=== PATIENT | female | born 2000 | race Hispanic/Latino ===

== ENCOUNTER 2018-05-19 17:41 | Emergency (ER) | payer OTHER, MEDICAID, SELFPAY ==
[2018-05-19 17:48] VITALS: BP 100/59; PULSE 62; RESP 20; TEMP 37; O2SAT 100; BMI 21.6
--- NOTE | 2018-05-19 20:24 | ED_ITS ---
HPI - Ear Problem <TALISHA Wood - Last Filed: 05/19/18 22:38> General Chief complaint: Ear Stated complaint: BILATERAL EAR PAIN Time Seen by Provider: 05/19/18 19:42 Source: patient Mode of arrival: ambulatory Limitations: no limitations History of Present Illness HPI Narrative: Healthy 17-year-old female that is a nonsmoker here for complaint of bilateral ear pain over the past couple of days. She denies any fevers or chills. She denies any nasal congestion. No cough no cold-like symptoms. She denies any trauma to the ears. No drainage from the ears. She denies any other concerns or complaints at this time. Positive p.o. intake. She denies any stressors or relievers of her pain MD Complaint: ear pain Related Data Allergies Allergy/AdvReac Type Severity Reaction Status Date / Time No Known Drug Allergies Allergy Verified 05/19/18 17:51 Review of Systems <TALISHA Wood - Last Filed: 05/19/18 22:38> Constitutional Denies chills, Denies fever(s), Denies lethargy and Denies weakness Eyes Denies change in vision, Denies eye discharge, Denies irritation and Denies loss of vision ENT Ears, Nose, Mouth, and Throat: Denies change in voice, Reports otalgia, Denies neck pain and Denies sore throat Cardiovascular Denies chest pain, Denies irregular heart rhythm, Denies lightheadedness, Denies palpitations, Denies dyspnea, Denies dyspnea on exertion and Denies orthopnea Respiratory Denies cough, Denies dyspnea, Denies dyspnea on exertion and Denies wheezing Gastrointestinal Gastrointestinal: Denies abdominal pain, Denies change in bowel habits, Denies diarrhea, Denies nausea and Denies vomiting Genitourinary Denies hematuria, Denies flank pain, Denies urinary incontinence and Denies urinary urgency Musculoskeletal Denies neck pain Integumentary/Breasts Denies pruritus, Denies erythema, Denies rash and Denies wounds Neurologic Denies confusion, Denies loss of vision and Denies weakness Psychiatric Denies anxiety, Denies confusion, Denies depression, Denies homicidal ideation and Denies suicidal ideation Endocrine Denies palpitations Hematologic/Lymphatic Denies easy bruising Allergic/Immunologic Denies wheezing Exam <TALISHA Wood - Last Filed: 05/19/18 22:38> Initial Vital Signs Initial Vital Signs: Vital Signs Temperature 98.6 F 05/19/18 17:48 Pulse Rate 62 05/19/18 17:48 Respiratory Rate 20 05/19/18 17:48 Blood Pressure 100/59 L 05/19/18 17:48 Pulse Oximetry 100 05/19/18 17:48 Const General: cooperative and well developed Nutritional Appearance: well nourished Orientation: alert, awake, oriented x3 and not confused HENMA Ears: hearing grossly normal bilaterally, external ears normal and TM's normal bilaterally Eyes Conjunctivae: conjunctivae normal Sclera: sclerae normal Pupils: PERRL EOM: EOM intact bilaterally Chest Chest: normal inspection of the chest Resp Effort & Inspection: normal respiratory effort, able to speak in complete sentences, no respiratory distress and no use of accessory muscles Auscultation: clear to auscultation bilaterally, no rales, no rhonchi and no wheezes Cardio Rate: regular rate Rhythm: regular rhythm Heart Sounds: no click, no gallops, no murmurs and no rubs Skin General: no rashes or lesions noted, No jaundice and No petechiae Neuro General: alert, oriented x3, gait normal and no focal motor deficits Speech: speech normal <DO Bradley See Last Filed: 05/20/18 00:31> Initial Vital Signs Initial Vital Signs: Vital Signs Temperature 98.6 F 05/19/18 17:48 Pulse Rate 62 05/19/18 17:48 Respiratory Rate 20 05/19/18 17:48 Blood Pressure 100/59 L 05/19/18 17:48 Pulse Oximetry 100 05/19/18 17:48 Course <TALISHA Wood - Last Filed: 05/19/18 22:38> Vital Signs - 8 hr 05/19/18 17:48 Temperature 98.6 F Pulse Rate 62 Respiratory Rate 20 Blood Pressure 100/59 L Pulse Oximetry 100 <Osvaldo Pizarro DO - Last Filed: 05/20/18 00:31> Vital Signs - 8 hr 05/19/18 17:48 Temperature 98.6 F Pulse Rate 62 Respiratory Rate 20 Blood Pressure 100/59 L Pulse Oximetry 100 Medical Decision Making <TALISHA Wood - Last Filed: 05/19/18 22:38> MDM Narrative Medical decision making narrative: Normal exam with no signs of otitis media or otitis externa bilateral. Symptoms may be secondary to a fluid in the inner ear although patient denies having any nasal congestion. [id number] Tylenol Motrin as needed for any discomfort. Follow up with primary care provider. Return emergency room for any worsening symptoms. Discharge Plan Departure Patient Disposition: Home Clinical Impression: Acute pain of both ears Discharge Date/Time: 05/19/18 20:27 Interventions: ED Discharge Assessment Last Done: 05/19/18 20:30 Instructions: DI for Ear Pain-Adult Activity Restrictions/Additional Instructions: No signs of infection to the ears seen on exam. Suspect that pain and discomfort may be due to fluid in the ear drum use [id number] Tylenol or Motrin as needed for any discomfort. Symptoms should resolve with time. For any worsening symptoms return to the emergency room. Follow up with her primary care provider. Referrals: [facility] [Provider Group] <Osvaldo Pizarro DO - Last Filed: 05/20/18 00:31> Cosign ED Attending Brit Attestation: I was available for consultation during this patient's emergency department encounter
--- NOTE | 2018-05-19 20:26 | PC.NURSE ---
further exam deferred to RESEARCH DIETITIAN
== END 2018-05-19 20:27 | disposition home or self-care (01) ==
PROVIDERS: Emergency Provider Nurse Practitioner Family
DX: H92.03 Otalgia, bilateral (principal)
CPT/HCPCS: 99282

== ENCOUNTER 2018-05-30 00:33 | Emergency (ER) | payer OTHER, MEDICAID, SELFPAY ==
--- NOTE | 2018-05-30 00:54 | ED_ITS ---
HPI - General Adult General Chief complaint: Urogenital-Female Stated complaint: left side pain/frequent/painful urination Time Seen by Provider: 05/30/18 00:53 Source: patient Mode of arrival: ambulatory Limitations: no limitations History of Present Illness HPI narrative: Otherwise healthy 17-year-old female here for evaluation of left- sided abdominal burning. She states has been going on for the past 3 weeks. She states that it seems to be associated with urination. She states she has urinary frequency. She states that she has to urinate often because if she does not it will hurt her abdomen when she goes the bathroom. Denies any vaginal bleeding. No history of sexually transmitted diseases. No change in bowel habits. No constipation. No diarrhea. No blood in her stool. No fevers. No recent travel. No recent antibiotics. Never been before. Never had a kidney stone before. No skin changes. Has not tried anything for this prior to arrival. Related Data Previous Rx's Medication Instructions Recorded ciprofloxacin HCl 500 mg PO BID 7 Days #14 tab 05/30/18 Allergies Allergy/AdvReac Type Severity Reaction Status Date / Time No Known Drug Allergies Allergy Verified 05/19/18 17:51 Review of Systems Constitutional Denies fever(s) ENT Ears, Nose, Mouth, and Throat: Denies vertigo Cardiovascular Denies chest pain and Denies dyspnea Respiratory Denies dyspnea Gastrointestinal Gastrointestinal: Reports abdominal pain, Denies change in stool character, Denies cramping, Denies diarrhea, Denies nausea and Denies vomiting Genitourinary Denies urinary incontinence, Denies urinary hesitancy, Reports urinary urgency and Denies vaginal discharge Musculoskeletal Denies myalgias and Denies arthralgias Integumentary/Breasts Denies rash Neurologic Denies vertigo FOR[facility], [facility] Medical History Healthy adult (Acute) Surgical History No pertinent past surgical history (Acute) Social History Smoking Status: Never smoker Exam Initial Vital Signs Initial Vital Signs: Vital Signs Temperature 98.2 F 05/30/18 01:26 Pulse Rate 72 05/30/18 01:26 Respiratory Rate 16 05/30/18 01:26 Blood Pressure 110/75 05/30/18 01:26 Pulse Oximetry 100 05/30/18 01:26 Const General: cooperative, healthy appearing, comfortable, well developed, well groomed and No acute distress Orientation: alert and awake HENMT Head: normal to inspection and normocephalic Resp Effort & Inspection: normal respiratory effort Cardio Rate: regular rate Rhythm: regular rhythm GI Inspection: non-distended Palpation: soft, No firm and tender (Left side of the abdomen) Back/Spine/Pelvis Back: No CVA tenderness Skin Lesions: no lesions Rashes: no rashes Neuro General: alert, awake and oriented x3 Extrem General: normal to inspection and capillary refill normal Psych Appearance: grossly normal and well kempt Course Orders Ordered: ED Orders 05/30/18 01:10 Test Urine Stat Urinalysis and Microscopic Stat Urine Culture Stat 05/30/18 01:46 CT abdomen pelvis w con Stat 05/30/18 02:10 Urine Chlamydia Gonorrhea PCR Stat 05/30/18 02:54 Complete Blood Count AUTO DIFF Stat Comprehensive Metabolic Panel Stat Lipase Stat Discontinued Medications Sodium Chloride (Normal Saline 0.9%) 1,000 mls @ 1,000 mls/hr IV BOLUS ONE Stop: 05/30/18 02:43 Last Infusion: 05/30/18 03:55 Dose: 0 mls/hr Admin: 05/30/18 02:49 Dose: 1,000 mls/hr Vital Signs - 8 hr 05/30/18 01:26 05/30/18 02:55 05/30/18 03:40 Temperature 98.2 F Pulse Rate 72 74 76 Respiratory Rate 16 18 Blood Pressure 110/75 Blood Pressure [Right Arm] 102/66 109/67 Pulse Oximetry 100 99 Medical Decision Making Lab Data Lab results reviewed: Yes I reviewed the patient's lab results. Result diagrams: 05/30/18 02:54 05/30/18 02:54 Lab Results 05/30/18 05/30/18 05/30/18 Range/Units 01:10 01:10 02:10 WBC (4.5-11.0) X10^3/uL RBC (4.0-5.2) X10^6/uL Hgb (12.0-16.0) g/dL Hct (36-46) % MCV (80-100) fL MCH (26-34) PG MCHC (30-36) % RDW (11.6-14.8) % Plt Count (150-400) X10^3/uL Neut % (Auto) (50-75) % Lymph % (Auto) (25-40) % Jay % (Auto) (3-14) % Eos % (Auto) (2-4) % Baso % (Auto) (0-2) % Neut # (Auto) (0443-6509) /uL Sodium (137-145) mmol/L Potassium (3.4-5.1) mmol/L Chloride (98-107) mmol/L Carbon Dioxide (22-32) mmol/L BUN (7-17) mg/dL Creatinine (0.52-1.04) mg/dL Estimated GFR (>60) mL/min BUN/Creatinine Ratio (6-22) Glucose (70-100) mg/dL Calcium (8.4-10.2) mg/dL Total Bilirubin (0.2-1.3) mg/dL AST (14-36) IU/L ALT (9-52) IU/L Alkaline Phosphatase (38-126) U/L Total Protein (6.3-8.2) g/dL Albumin (3.5-5.0) g/dL Globulin (1.7-4.1) g/dL Albumin/Globulin Ratio (1.0-2.8) Lipase (23-300) U/L Urine Color Yellow Urine Appearance Clear Urine pH 6.0 (4.5-8.0) Ur Specific [place] 1.025 (1.000-1.035) Urine Protein Negative (Negative) Urine Glucose (UA) 1+ (Normal) g/dL Urine Ketones Trace H (NEGATIVE) Urine Occult Blood Negative (Negative) Urine Nitrate Negative (Negative) Urine Bilirubin Negative (NEGATIVE) Urine Urobilinogen 0.2 (0.2) E.U./dL Ur Leukocyte Esterase Negative (NEGATIVE) Urine RBC None seen (0-5/HPF) Urine WBC None seen (0-5/HPF) Ur Squamous Epith Cells 1-5 /hpf Urine Bacteria Moderate (10-30) H (None) Ur Culture Indicated? Cult not indicated Micro UA Comment Not Reportable Urine Test Negative (Negative) Ur Chlamydia DNA (PCR) Not detected N gonorrhoeae DNA (PCR) Not detected 05/30/18 05/30/18 Range/Units 02:54 02:54 WBC 7.9 (4.5-11.0) X10^3/uL RBC 5.04 (4.0-5.2) X10^6/uL Hgb 14.2 (12.0-16.0) g/dL Hct 41.4 (36-46) % MCV 82.2 (80-100) fL MCH 28.2 (26-34) PG MCHC 34.4 (30-36) % RDW 12.9 (11.6-14.8) % Plt Count 309 (150-400) X10^3/uL Neut % (Auto) 59.6 (50-75) % Lymph % (Auto) 30.8 (25-40) % Jay % (Auto) 8.2 (3-14) % Eos % (Auto) 0.9 L (2-4) % Baso % (Auto) 0.5 (0-2) % Neut # (Auto) 4700 (8269-1238) /uL Sodium 140 (137-145) mmol/L Potassium 3.6 (3.4-5.1) mmol/L Chloride 101 (98-107) mmol/L Carbon Dioxide 28 (22-32) mmol/L BUN 19 H (7-17) mg/dL Creatinine 0.60 (0.52-1.04) mg/dL Estimated GFR > 60.0 (>60) mL/min BUN/Creatinine Ratio 31.7 H (6-22) Glucose 109 H (70-100) mg/dL Calcium 9.0 (8.4-10.2) mg/dL Total Bilirubin 0.3 (0.2-1.3) mg/dL AST 36 (14-36) IU/L ALT 38 (9-52) IU/L Alkaline Phosphatase 108 (38-126) U/L Total Protein 7.3 (6.3-8.2) g/dL Albumin 4.4 (3.5-5.0) g/dL Globulin 2.9 (1.7-4.1) g/dL Albumin/Globulin Ratio 1.5 (1.0-2.8) Lipase 96 (23-300) U/L Urine Color Urine Appearance Urine pH (4.5-8.0) Ur Specific [place] (1.000-1.035) Urine Protein (Negative) Urine Glucose (UA) (Normal) g/dL Urine Ketones (NEGATIVE) Urine Occult Blood (Negative) Urine Nitrate (Negative) Urine Bilirubin (NEGATIVE) Urine Urobilinogen (0.2) E.U./dL Ur Leukocyte Esterase (NEGATIVE) Urine RBC (0-5/HPF) Urine WBC (0-5/HPF) Ur Squamous Epith Cells Urine Bacteria (None) Ur Culture Indicated? Micro UA Comment Urine Test (Negative) Ur Chlamydia DNA (PCR) N gonorrhoeae DNA (PCR) Imaging Data CT scan - abdomen: Radiologist's impression: There short segment thickening of the cage of the right left colon this may represent underdistention versus colitis. MDM Narrative Medical decision making narrative: Patient's urinalysis is unremarkable. No signs of infection. GC and chlamydia are negative. She has no vaginal bleeding. Her abdominal pain is left side of her abdomen not left adnexal so fill the PID is less likely in this situation. CT scan shows no signs of kidney stones however does have thickening of the colon. Colitis could very well be the cause of her symptoms. She has no recent travel no recent antibiotics. I feel that course of antibiotics is not unreasonable given her length of time that she has been having symptoms. Patient was instructed she needed to contact her primary care doctor for a follow-up. She expressed understanding and agreement plan. Discharge Plan Departure Patient Disposition: Home Clinical Impression: Abdominal pain, Colitis Instructions: DI for Colitis Activity Restrictions/Additional Instructions: I do recommend that you may contact with the primary care doctor to establish follow-up. Take the antibiotics as directed. Return to the emergency department for any new or worsening symptoms Prescriptions: New ciprofloxacin HCl 500 mg tablet 500 mg PO BID 7 Days Qty: 14 RF: 0 Stand Alone Forms: Against Medical Advice
[2018-05-30 01:16] LABS: RBC Urine None Seen (0-5/HPF); WBC Urine None Seen (0-5/HPF)
[2018-05-30 01:19] LABS: Appearance Urine UA CLEAR; Bilirubin Urine UA NEGATIVE (NEGATIVE); Color Urine UA YELLOW; Glucose Urine UA 1+ g/dL (Normal); Ketones Urine UA TRACE (NEGATIVE); Leukocyte Esterase Urine UA NEGATIVE (NEGATIVE); Nitrite Urine UA NEGATIVE (Negative); Occult Blood Urine UA NEGATIVE (Negative); Protein Urine UA NEGATIVE (Negative); Specific Gravity Urine UA 1.025 (1.000-1.035); Urobilinogen Urine UA 0.2 E.U./dL (0.2)
[2018-05-30 01:26] VITALS: BP 110/75; PULSE 72; RESP 16; TEMP 36.8; O2SAT 100; BMI 21.6
[2018-05-30 01:36] LABS: Pregnancy Test Urine Negative (Negative)
[2018-05-30 01:40] LABS: Bacteria Urine Moderate (10-30); Culture Indicated Urine Cult Not Indicated; Squamous Epithelial Cell Urine 1-5 /HPF
--- NOTE | 2018-05-30 01:46 | DI.CT.S_ITS ---
PROCEDURE: CT ABDOMEN PELVIS W CON INDICATIONS: Left-sided abdominal pain TECHNIQUE: After the administration of oral and intravenous contrast, 5 mm thick sections acquired from the diaphragms to the symphysis. 5 mm thick coronal and sagittal reformats were performed. For radiation dose reduction, the following was used: automated exposure control, adjustment of mA and/or kV according to patient size. COMPARISON: None. FINDINGS: Image quality: Excellent. ABDOMEN: Lung bases: Lung bases are clear. Heart size is normal. Solid organs: No focal hepatic lesions identified. Gallbladder appears within normal limits without calcified gallstones. Biliary system is non-dilated. Pancreas enhances normally. Spleen is normal in size and enhancement. No adrenal nodules. Kidneys are normal in size and enhancement, without hydronephrosis. Peritoneum and bowel: Stomach and small bowel loops are normal in caliber and wall thickness. No evidence of appendicitis. There is short segment of mild wall thickening at the cecum, proximal transverse colon, and distal descending colon. The findings may reflect a mild colitis or artifact from nondistention. There is a small amount of nonspecific free fluid in the pelvis which appears within physiologic limits. No free air. Nodes and vessels: No retroperitoneal or mesenteric adenopathy. Aorta and inferior vena cava are normal in caliber. Miscellaneous: No ventral hernias. PELVIS: Genitourinary: Bladder wall thickness is normal. Miscellaneous: No inguinal hernias or adenopathy. Bones: No suspicious bony lesions. No vertebral body compression fractures. IMPRESSION: 1. Short segment of mild colonic wall thickening may reflect a mild infectious or inflammatory colitis or artifact from nondistention. Recommend correlation clinically. 2. Small amount of nonspecific free fluid in the pelvis appears within physiologic limits. Dictated by: Misha Zarate M.D. on 05/30/2018 at 10:34 Approved by: Misha Zarate M.D. on 05/30/2018 at 10:37
[2018-05-30] MEDS: SODIUM CHLORIDE 0.9% 1,000 ML 1000 ML IV (02:49)
[2018-05-30 02:55] VITALS: BP 102/66; PULSE 74; RESP 18; O2SAT 99
[2018-05-30 03:05] LABS: Add Manual Diff / Slide Review NO; Basophils Percent Auto 0.5 % (0-2); Eosinophils Percent Auto 0.9 % (2-4); Hematocrit 41.4 % (36-46); Hemoglobin 14.2 g/dL (12.0-16.0); Lymphocytes Percent Auto 30.8 % (25-40); Mean Corpuscular HGB Conc 34.4 % (30-36); Mean Corpuscular Hemoglobin 28.2 PG (26-34); Mean Corpuscular Volume 82.2 fL (80-100); Monocytes Percent Auto 8.2 % (3-14); Neutrophils Absolute Auto 4700 /uL (3000-5900); Neutrophils Percent Auto 59.6 % (50-75); Platelet Count 309 X10^3/uL (150-400); Red Blood Cell Count 5.04 X10^6/uL (4.0-5.2); Red Cell Distribution Width 12.9 % (11.6-14.8); White Blood Cell Count 7.9 X10^3/uL (4.5-11.0)
[2018-05-30 03:08] LABS: Alanine Aminotransferase 38 IU/L (9-52); Albumin 4.4 g/dL (3.5-5.0); Albumin Globulin Ratio 1.5 (1.0-2.8); Alkaline Phosphatase 108 U/L (38-126); Aspartate Aminotransferase 36 IU/L (14-36); BUN Creatinine Ratio 31.7 (6-22); Bilirubin Total 0.3 mg/dL (0.2-1.3); Blood Urea Nitrogen 19 mg/dL (7-17); Carbon Dioxide 28 mmol/L (22-32); Chloride 101 mmol/L (98-107); Estimated Glomerular Filt Rate > 60.0 mL/min (>60); Globulin 2.9 g/dL (1.7-4.1); Glucose 109 mg/dL (70-100); HEMOLYSIS 25 (0-50); Lipase 96 U/L (23-300); Potassium 3.6 mmol/L (3.4-5.1); Sodium 140 mmol/L (137-145); Total Protein 7.3 g/dL (6.3-8.2)
[2018-05-30 03:40] VITALS: BP 109/67; PULSE 76
[2018-05-30 03:42] LABS: Urine N gonorrhoeae NOT DETECTED
[2018-05-30 03:45] LABS: Urine Chlamydia NOT DETECTED
== END 2018-05-30 04:26 | disposition home or self-care (01) ==
PROVIDERS: Emergency Provider Emergency Medicine
DX: K52.9 Noninfective gastroenteritis and colitis, unspecified (principal); R10.9 Unspecified abdominal pain
CPT/HCPCS: 36591; 74177; 80053; 81001; 81025; 83690; 85025; 87086; 87491; 87591; 96360; 99283; 99285; Q9967

== ENCOUNTER 2019-02-15 19:04 | Emergency (ER) | payer OTHER, MEDICAID, SELFPAY ==
[2019-02-15 19:10] VITALS: BP 119/67; PULSE 83; RESP 14; TEMP 36.8; O2SAT 100; BMI 21.4
--- NOTE | 2019-02-15 20:26 | DI.US.S_ITS ---
PROCEDURE: US PELVIC COMPLETE INDICATIONS: RIGHT PELVIC PAIN TECHNIQUE: Real-time scanning was performed of the pelvic organs, with image documentation. Additional endovaginal scanning was necessary due to incomplete visualization of the adnexal and endometrial structures by transabdominal scanning. COMPARISON: None. FINDINGS: Transabdominal scanning: Limited scanning through the kidneys shows no hydronephrosis. No pathologic free abdominal or pelvic fluid. Appendix not seen. Endovaginal scanning: Uterus: Uterus is normal in size at 6.2 x 2.8 x 4.2 cm. The endometrium measures 6.4 mm in combined thickness. Ovaries: Within normal limits bilaterally IMPRESSION: No acute process. Dictated by: Matt Lilly M.D. on 02/15/2019 at 21:41 Approved by: Matt Lilly M.D. on 02/15/2019 at 21:42
--- NOTE | 2019-02-15 20:30 | ED_ITS ---
HPI - Female Genitourinary General Chief complaint: Urogenital-Female Stated complaint: STOMACH PAIN Time Seen by Provider: 02/15/19 19:24 Source: patient Mode of arrival: ambulatory Limitations: no limitations History of Present Illness HPI Narrative: Patient is a 18-year-old female who presents with right lower quadrant pain ongoing for the last 1 year but has progressively gotten worse. She says he has had full workup including pill test. She states that lately she has been having some vaginal itching. She says that she has previously been sexually active but not in a long time. She has tried [id number] Monistat 7 day course but has only taken it 2 days worth. She continues to have itching she denies any smell. No history of STDs. No nausea vomiting no fevers. She has no painful or frequent urination. She denies any abnormal vaginal discharge. Related Data Previous Rx's Medication Instructions Recorded benzoyl peroxide 5 % topical 1 applictn TOP DAILY #113 gram 10/01/18 cleanser clindamycin 1 % topical gel 1 applictn TOP DAILY #30 gram 10/01/18 Allergies Allergy/AdvReac Type Severity Reaction Status Date / Time No Known Drug Allergies Allergy Verified 02/15/19 19:18 Review of Systems Review of Systems ROS Unobtainable: All systems reviewed & are unremarkable except as noted in HPI and below Constitutional Denies chills, Denies fever(s), Denies lethargy and Denies weakness Eyes Denies change in vision, Denies eye discharge, Denies irritation and Denies loss of vision ENT Ears, Nose, Mouth, and Throat: Denies change in voice, Denies neck pain and Denies sore throat Cardiovascular Denies chest pain, Denies irregular heart rhythm, Denies lightheadedness, Denies palpitations and Denies orthopnea Gastrointestinal Gastrointestinal: Reports as per HPI and Reports abdominal pain Genitourinary Reports as per HPI and Reports genital pruritis Musculoskeletal Denies neck pain Integumentary/Breasts Denies pruritus, Denies erythema, Denies rash and Denies wounds Neurologic Denies loss of vision and Denies weakness Endocrine Denies palpitations [facility] Medical History Healthy adult (Acute) Surgical History No pertinent past surgical history (Acute) Social History marital status: unmarried,single pets and animals: No education level: high school seatbelt use: always helmet use: Yes Smoking Status: Never smoker during the past year weight has: remained stable well-balanced diet: daily or most days daily servings fruits/ve-4 caffeine: Yes eating out: 1-3 times/week Social History marital status: unmarried,single pets and animals: No education level: high school seatbelt use: always helmet use: Yes Smoking Status: Never smoker during the past year weight has: remained stable well-balanced diet: daily or most days daily servings fruits/ve-4 caffeine: Yes eating out: 1-3 times/week Exam Initial Vital Signs Initial Vital Signs: Vital Signs Temperature 98.3 F 02/15/19 19:10 Pulse Rate 83 02/15/19 19:10 Respiratory Rate 14 02/15/19 19:10 Blood Pressure 119/67 02/15/19 19:10 Pulse Oximetry 100 02/15/19 19:10 GENERAL: Well-appearing, well-nourished and in no acute distress. HEENT: Head atraumatic,EOMI, pupils reactive, face symmetric, moist mucous membranes CARDIOVASCULAR: Regular rate and rhythm without murmurs, rubs or gallops. RESPIRATORY: Breath sounds equal bilaterally, no wheezes rales or rhonchi. ABDOMEN: Soft, mild right lower quadrant pain no guarding no rebound negative psoas sign negative heel tap PELVIC: External genitalia is normal, no vaginal bleeding, no vaginal discharge, no odor, cervical os is closed, no adnexal tenderness EXTREMITIES: Normal range of motion, no clubbing or edema. Neurovascularly intact NEUROLOGICAL: Alert and oriented x4. SKIN: Warm, dry, no laceration, no petechiae, no rashes or lesions. Course Orders Ordered: ED Orders 02/15/19 20:26 US pelvic complete Stat Vital Signs - 8 hr 02/15/19 19:10 02/15/19 22:30 Temperature 98.3 F 97.4 F L Pulse Rate 83 71 Respiratory Rate 14 18 Blood Pressure 119/67 118/79 Pulse Oximetry 100 97 MDM - Female Genitourinary Lab Data Attestation: I reviewed the patient's lab results. Point of Care Testing Test Results Negative Urine Dip Bedside Urine Glucose 500 mg/dl Bedside Urine Bilirubin - Negative Bedside Urine Ketone - Negative Urine Specific [place] 1.025 Bedside Urine Occult Blood - Negative Bedside Urine pH 5.5 Bedside Urine Protein - Negative Bedside Urine Urobilinogen - Negative Bedside Urine Nitrite - Negative Bedside Urine Leukocytes - Negative Esterase Imaging Data US pelvic: Radiologist's impression: PROCEDURE: US PELVIC COMPLETE INDICATIONS: RIGHT PELVIC PAIN TECHNIQUE: Real-time scanning was performed of the pelvic organs, with image documentation. Additional endovaginal scanning was necessary due to incomplete visualization of the adnexal and endometrial structures by transabdominal scanning. COMPARISON: None. FINDINGS: Transabdominal scanning: Limited scanning through the kidneys shows no hydronephrosis. No pathologic free abdominal or pelvic fluid. Appendix not seen. Endovaginal scanning: Uterus: Uterus is normal in size at 6.2 x 2.8 x 4.2 cm. The endometrium measures 6.4 mm in combined thickness. Ovaries: Within normal limits bilaterally IMPRESSION: No acute process. Dictated by: Matt Lilly M.D. on 02/15/2019 at 21:41 MDM Narrative Medical decision making narrative: Patient has been having chronic ongoing right lower quadrant pain for over a year. She states it is basically same is a little bit worse and complaining of vaginal itching. Pelvic exam is unremarkable no obvious [place] infection. I told her to finish Monistat may be partially treated. Cultures have been sent but this time I see no need for empiric treatment. Pelvic ultrasound negative for any ovarian cyst or torsion. At this time I do not suspect appendicitis pain has been ongoing again for a year. Discharge Plan Departure Patient Disposition: Home Clinical Impression: Abdominal pain Qualifiers: Abdominal location: right lower quadrant Qualified Code(s): R10.31 - Right lower quadrant pain Discharge Date/Time: 02/15/19 22:31 Interventions: ED Discharge Assessment Last Done: 02/15/19 22:30 Instructions: DI for Abdominal Pain-Adult Activity Restrictions/Additional Instructions: *You have been diagnosed with chronic abdominal pain *What to do: At this time no sore severe abdominal pain identified. I recommend continuation of outpatient evaluation. *Continue to take medications as directed Tylenol or ibuprofen as needed for pain as directed *Follow up with your primary care provider in 2-3 days *Return to ER if you should have increasing pain, vaginal bleeding, vaginal discharge, fever or any new, worsening or concerning symptoms Prescriptions: No Action clindamycin phosphate 1 % gel 1 applictn TOP DAILY Qty: 30 RF: 1 benzoyl peroxide 5 % cleanser 1 applictn TOP DAILY Qty: 113 RF: 1 Referrals: [facility] [Outside]
[2019-02-15 22:30] VITALS: BP 118/79; PULSE 71; RESP 18; TEMP 36.3; O2SAT 97
== END 2019-02-15 22:31 | disposition home or self-care (01) ==
PROVIDERS: Emergency Provider Emergency Medicine
DX: R10.31 Right lower quadrant pain (principal)
CPT/HCPCS: 76830; 76856; 81003; 81025; 87070; 87205; 87210; 87491; 87591; 99282; 99283

== ENCOUNTER 2019-04-02 09:57 | Emergency (ER) | payer OTHER, MEDICAID, SELFPAY ==
[2019-04-02 10:04] VITALS: BP 109/73; PULSE 75; RESP 18; TEMP 36.4; O2SAT 100; BMI 21.7
--- NOTE | 2019-04-02 10:44 | ED.ABDPAIN ---
HPI - Abdominal Pain General Chief Complaint: Abdominal Pain Stated Complaint: continued lt sided abd pain x3 months Time Seen by Provider: 04/02/19 10:26 Source: patient Mode of arrival: Ambulatory Limitations: no limitations History of Present Illness HPI narrative: 18-year-old female here for evaluation of abdominal pain. This has been going on for several months now. She has had multiple evaluations both this emergency department another emergency department and also her primary doctor regarding it. She states she has seen a urologist and has had what sounds like a cystoscopy. Has also had a colonoscopy. Has had ultrasounds and lab reports. She also states she has had CT scans in the past all related to this symptom. Her last evaluation in this emergency department was approximately 2 months ago where she had an ultrasound evaluation. At that time she has been treated for a yeast infection. She states that those symptoms have resolved however she has had continued abdominal pain. She states that she does think it is related to urinating. She thinks she has urinary frequency and urgency and also the pain when she urinates. She has had every day since the symptoms started however to she does state that some days are better than others and some urinations are more painful than others. She returns to the emergency department today because this morning she had continued discomfort. Related Data Previous Rx's Medication Instructions Recorded tolterodine [Detrol LA] 2 mg PO DAILY #14 cap 04/02/19 Allergies Allergy/AdvReac Type Severity Reaction Status Date / Time No Known Drug Allergies Allergy Verified 02/15/19 19:18 Review of Systems Constitutional Constitutional: Denies fever(s) Cardiovascular Cardiovascular: Denies chest pain and Denies dyspnea Respiratory Respiratory: Denies cough and Denies dyspnea Gastrointestinal Gastrointestinal: Reports abdominal pain, Denies nausea and Denies vomiting Genitourinary Genitourinary: Reports urinary frequency, Denies difficulty voiding, Denies post void dribbling, Denies dysuria, Denies pelvic pain, Denies flank pain, Denies urinary incontinence, Denies urinary hesitancy and Reports urinary urgency Musculoskeletal Musculoskeletal: Denies back pain, Denies myalgias and Denies arthralgias Integumentary/Breasts Skin/Breast: Denies lesions and Denies rash Neurologic Neurologic: Denies behavioral changes Psychiatric Psychiatric: Denies behavioral changes Hematologic/Lymphatic Hematologic/Lymphatic: Denies easy bleeding and Denies easy bruising [facility] Medical History Healthy adult (Acute) Social History marital status: unmarried,single pets and animals: No education level: high school seatbelt use: always helmet use: Yes Smoking Status: Never smoker during the past year weight has: remained stable well-balanced diet: daily or most days daily servings fruits/ve-4 caffeine: Yes eating out: 1-3 times/week Exam Initial Vital Signs Initial Vital Signs: Vital Signs Temperature 97.6 F 04/02/19 10:04 Pulse Rate 75 04/02/19 10:04 Respiratory Rate 18 04/02/19 10:04 Blood Pressure 109/73 04/02/19 10:04 Pulse Oximetry 100 04/02/19 10:04 Const General: cooperative, comfortable and well developed Orientation: alert, awake and oriented x3 HENMT Head: normal to inspection and normocephalic Resp Effort & Inspection: normal respiratory effort Auscultation: clear to auscultation bilaterally Cardio Rate: regular rate Rhythm: regular rhythm GI Inspection: non-distended Palpation: soft, No firm and tender Back/Spine/Pelvis Back: No CVA tenderness Skin Lesions: no lesions Rashes: no rashes Neuro General: alert, awake and oriented x3 Extrem General: normal to inspection and capillary refill normal Psych Appearance: grossly normal and well kempt Course Orders Ordered: ED Orders 04/02/19 10:40 Urine Microscopic Stat Vital Signs Vital signs: Vital Signs - 8 hr 04/02/19 10:04 Temperature 97.6 F Pulse Rate 75 Respiratory Rate 18 Blood Pressure 109/73 Pulse Oximetry 100 MDM - Abdominal Pain Lab Data Labs: Lab Results 04/02/19 Range/Units 10:40 Urine RBC None seen (0-5/HPF) Urine WBC None seen (0-5/HPF) Ur Squamous Epith Cells 5-10 /hpf H (0-5/HPF) Urine Bacteria None seen (None) Ur Culture Indicated? Cult not indicated Point of care testing: Point of Care Testing Test Results Negative Urine Dip Bedside Urine Glucose 250 mg/dl Bedside Urine Bilirubin - Negative Bedside Urine Ketone - Negative Urine Specific [place] 1.020 Bedside Urine Occult Blood - Negative Bedside Urine pH 6.0 Bedside Urine Protein +/- 15 Bedside Urine Urobilinogen - Negative Bedside Urine Nitrite - Negative Bedside Urine Leukocytes - Negative Esterase MDM Narrative Medical decision making narrative: Patient has had a fairly extensive workup up to this point for the symptoms of brought her into the ER today. Not all of this was available for my review however the patient states that all of the workup to this point does not given her any specific diagnosis. Her urine today is negative. She has no vaginal bleeding or vaginal discharge. Has a fairly benign abdominal exam. Given that her symptoms seem to be associated with urination and she describes urinary frequency and urgency known field is unreasonable to start her on an anti bladder spasm medication for both diagnostic/therapeutic reasons. Will have her contact her primary provider for follow-up. We will hold on further workup for now. Patient does expressed understanding and agreement with plan. We did discuss the potential side effects this medication to include urinary retention. Patient expressed understanding and agreement. Discharge Plan Departure Patient Disposition: Home Clinical Impression: Abdominal pain Qualifiers: Abdominal location: unspecified location Qualified Code(s): R10.9 - Unspecified abdominal pain Instructions: DI for Abdominal Pain-Adult Activity Restrictions/Additional Instructions: I do recommend that you cough with your primary doctor regarding the symptoms to see if you need another referral for a specialist visit. The specialist could be bakery clerk or Urology or GI. Return to the emergency department for any new symptoms Prescriptions: New tolterodine [Detrol LA] 2 mg capsule,extended release 24hr 2 mg PO DAILY Qty: 14 RF: 0
[2019-04-02 10:45] LABS: Bacteria Urine None Seen; RBC Urine None Seen (0-5/HPF); WBC Urine None Seen (0-5/HPF)
[2019-04-02 10:59] LABS: Culture Indicated Urine Cult Not Indicated; Squamous Epithelial Cell Urine 5-10 /HPF (0-5/HPF)
== END 2019-04-02 11:11 | disposition home or self-care (01) ==
PROVIDERS: Emergency Provider Emergency Medicine
DX: R10.9 Unspecified abdominal pain (principal)
CPT/HCPCS: 81003; 81015; 81025; 99282; 99283

== ENCOUNTER 2020-05-29 16:45 | Emergency (ER) | payer OTHER, MEDICAID, SELFPAY ==
[2020-05-29 16:52] VITALS: BP 120/98; PULSE 96; RESP 17; TEMP 37.3; O2SAT 99
[2020-05-29 17:49] LABS: RBC Urine None Seen (0-5/HPF); WBC Urine None Seen (0-5/HPF)
[2020-05-29 17:50] LABS: Appearance Urine UA CLEAR; Bilirubin Urine UA NEGATIVE (NEGATIVE); Color Urine UA YELLOW; Glucose Urine UA 1+ g/dL (Negative); Ketones Urine UA 1+ (NEGATIVE); Leukocyte Esterase Urine UA NEGATIVE (NEGATIVE); Nitrite Urine UA NEGATIVE (Negative); Occult Blood Urine UA NEGATIVE (Negative); Protein Urine UA 1+ (Negative); Specific Gravity Urine UA 1.025 (1.000-1.035); Urobilinogen Urine UA 0.2 E.U./dL (0.2)
[2020-05-29 17:51] LABS: pH Urine UA 5.5 (4.5-8.0)
[2020-05-29 17:58] LABS: Pregnancy Test Urine Negative (Negative)
[2020-05-29 17:59] LABS: Bacteria Urine Moderate (10-30); Culture Indicated Urine Cult Not Indicated; Mucus Urine 2+ (Negative); Squamous Epithelial Cell Urine 5-10 /HPF (0-5/HPF)
--- NOTE | 2020-05-29 18:05 | ED.RECABL ---
HPI - Recheck/Abnormal Lab/Rx General Chief Complaint: Recheck/Abnormal Lab/Rx Stated Complaint: WANTS TO BE TESTED FOR STD Time Seen by Provider: 05/29/20 17:01 Source: patient Mode of arrival: Ambulatory Limitations: no limitations History of Present Illness HPI narrative: 19F nonsmoker with noncontributory medical history presents with her sister and a chief complaint of a desire to be tested for both and exposure to STDs. She states that about a week ago she had unprotected sex with 1 person and now wants to be tested. She states this is the only sexual partner she has had many months and denies any symptoms such as discharge, dysuria, frequency, urgency, pelvic pain, fever or chills. She states she took Plan B the next day and is otherwise well and free of complaint. She denies any exposure to persons known or under suspicion for COVID-19 Associated symptoms: none Related Data Previous Rx's Medication Instructions Recorded tolterodine 2 mg capsule,extended 2 mg PO DAILY #14 cap 04/02/19 release 24 hr dicyclomine 10 mg capsule 10 mg PO QID PRN #30 cap 05/18/19 Allergies Allergy/AdvReac Type Severity Reaction Status Date / Time No Known Drug Allergies Allergy Verified 05/29/20 16:54 Review of Systems Constitutional Constitutional: Denies chills, Denies fatigue, Denies fever(s), Denies frequent falls, Denies lethargy and Denies weakness Eyes Eyes: Denies change in vision, Denies eye discharge, Denies irritation and Denies loss of vision ENT Ears, Nose, Mouth, and Throat: Denies change in voice, Denies dizziness, Denies neck pain, Denies sore throat and Denies throat swelling Cardiovascular Cardiovascular: Denies chest pain, Denies irregular heart rhythm, Denies lightheadedness, Denies palpitations, Denies dyspnea, Denies dyspnea on exertion and Denies orthopnea Respiratory Respiratory: Denies cough, Denies dyspnea, Denies dyspnea on exertion and Denies wheezing Gastrointestinal Gastrointestinal: Denies abdominal pain, Denies change in bowel habits, Denies diarrhea, Denies nausea and Denies vomiting Musculoskeletal Musculoskeletal: Denies neck pain and Denies numbness Integumentary/Breasts Skin/Breast: Denies pruritus, Denies erythema, Denies rash and Denies wounds Neurologic Neurologic: Denies behavioral changes, Denies confusion, Denies dizziness, Denies frequent falls, Denies loss of vision, Denies numbness and Denies weakness Psychiatric Psychiatric: Denies anxiety, Denies behavioral changes, Denies confusion, Denies depression, Denies homicidal ideation and Denies suicidal ideation Endocrine Endocrine: Denies fatigue, Denies flushing and Denies palpitations Hematologic/Lymphatic Hematologic/Lymphatic: Denies easy bruising Allergic/Immunologic Allergic/Immunologic: Denies urticaria, Denies throat swelling and Denies wheezing Patient History Medical History Healthy adult Surgical History No pertinent past surgical history Social History marital status: unmarried,single pets and animals: No education level: high school seatbelt use: always helmet use: Yes Smoking Status: Never smoker during the past year weight has: remained stable well-balanced diet: daily or most days daily servings fruits/ve-4 caffeine: Yes eating out: 1-3 times/week Smoking Status: Never smoker alcohol intake frequency: 0-2 drinks per day Substance Use Type: does not use Exam Narrative Exam Narrative: GEN: AOx3 and in mild distress EYES: Pupils are equal, round, and reactive to light and accommodation. Extraoccular muscles are intact bilaterally. There is no subconjunctival hemorrhage or exudate. CHEST: Lungs are clear to auscultation bilaterally and free of wheezes, rales, or rhonchi. Heart rate is regular rhythm, there are no murmurs, clicks, rubs, or gallops. There is no chest wall tenderness. ABD: Abdomen is soft and nontender. There is no guarding or rebound. Bowel sounds are normal in all 4 quadrants. There is no mass or organomegaly. PELVIC: Swabs obtained and sent to lab, no discharge or cervical erythema/tenderness. Performed with female nursing lock and dam operator and sister at bedside, and with patient's permission EXT: Full painless ROM of all extremities with no loss of sensation or strength. SKIN: Warm, pink, and dry. No erythema or rash Initial Vital Signs Initial Vital Signs: Vital Signs Temperature 99.2 F 12/08/20 16:52 Pulse Rate 96 H 05/29/20 16:52 Respiratory Rate 17 05/29/20 16:52 Blood Pressure 120/98 H 05/29/20 16:52 Pulse Oximetry 99 05/29/20 16:52 Course Orders Ordered: ED Orders 05/29/20 17:45 Test Urine Stat Urinalysis and Microscopic Stat 05/29/20 19:06 Chlamydia/Gonoc/Myco Genital Stat Genital Culture Stat GIL Prep Stat Miscellaneous to [facility] Stat Vital Signs Vital signs: Vital Signs - 8 hr 05/29/20 16:52 05/29/20 19:16 Temperature 99.2 F Pulse Rate 96 H 86 Respiratory Rate 17 18 Blood Pressure 120/98 H 116/84 Pulse Oximetry 99 99 MDM - Recheck/Abnormal Lab/Rx Lab Data Labs: Lab Results 05/29/20 05/29/20 05/29/20 Range/Units 17:45 17:45 18:05 Urine Color Yellow Urine Appearance Clear Urine pH 5.5 (4.5-8.0) Ur Specific [place] 1.025 (1.000-1.035) Urine Protein 1+ H (Negative) Urine Glucose (UA) 1+ H (Negative) g/dL Urine Ketones 1+ H (NEGATIVE) Urine Occult Blood Negative (Negative) Urine Nitrate Negative (Negative) Urine Bilirubin Negative (NEGATIVE) Urine Urobilinogen 0.2 (0.2) E.U./dL Ur Leukocyte Esterase Negative (NEGATIVE) Urine RBC None seen (0-5/HPF) Urine WBC None seen (0-5/HPF) Ur Squamous Epith Cells 5-10 /hpf H (0-5/HPF) Urine Bacteria Moderate (10-30) H (None) Urine Mucus 2+ H (Negative) Ur Culture Indicated? Cult not indicated Urine Test Negative (Negative) Ur Chlamydia DNA (PCR) Cancelled N gonorrhoeae DNA (PCR) Cancelled Discharge Plan Departure Patient Disposition: Home Clinical Impression: Unprotected sex, Feared complaint without diagnosis Activity Restrictions/Additional Instructions: *You have been diagnosed with [ concern for exposure to STD after unprotected sexual encounter ] *What to do: *Please refrain from sexual contact until we get the results of your tests. We will call you with any positive findings, but likely will not call for negative results. *Return to ER if you should have any new, worsening or concerning symptoms, such as [pelvic pain, fever > 101F, increased discharge or other bothersome symptoms ] Prescriptions: No Action dicyclomine 10 mg capsule 10 mg PO QID PRN (Reason: abdominal pain) Qty: 30 RF: 0 tolterodine [Detrol LA] 2 mg capsule,extended release 24hr 2 mg PO DAILY Qty: 14 RF: 0 Hold Instructions: Home Medication placed on hold at Doctor's office
[2020-05-29 19:16] VITALS: BP 116/84; PULSE 86; RESP 18; O2SAT 99
[2020-06-02 13:43] LABS: Chlamydia trachomatis Negative (Negative); Mycoplasma genitalium Negative (Negative); Neisseria gonorrhoeae Negative (Negative)
== END 2020-05-29 19:17 | disposition home or self-care (01) ==
PROVIDERS: Emergency Medicine; Emergency Provider Emergency Medicine
DX: Z20.2 Contact with and (suspected) exposure to infections with a predominantly sexual mode of transmission (principal); Z32.02 Encounter for pregnancy test, result negative
CPT/HCPCS: 81001; 81025; 87070; 87205; 87220; 87252; 87491; 87591; 99281; 99282

== ENCOUNTER 2020-08-29 03:14 | Emergency (ER) | payer OTHER, MEDICAID, SELFPAY ==
[2020-08-29 03:16] VITALS: BP 117/60; PULSE 85; RESP 16; TEMP 37; O2SAT 99; BMI 22.9
--- NOTE | 2020-08-29 03:19 | ED.GENADULT ---
HPI - General Adult General Chief complaint: Vaginal Bleeding Stated complaint: newly , started bleeding Time Seen by Provider: 08/29/20 03:16 Source: patient Mode of arrival: Ambulatory Limitations: no limitations History of Present Illness HPI narrative: Patient is a 19-year-old female at unknown dates with the last menstrual period July 11 who is here for evaluation of vaginal bleeding and lower abdominal discomfort. She states that the abdominal discomfort for the past couple days with vaginal bleeding which is yesterday. She took a test last evening and it was positive. She came in because her abdominal pain was keeping her awake. Related Data Previous Rx's Medication Instructions Recorded tolterodine 2 mg capsule,extended 2 mg PO DAILY #14 cap 04/02/19 release 24 hr dicyclomine 10 mg capsule 10 mg PO QID PRN #30 cap 05/18/19 PNV 119-iron fum-folic acid 1 tab PO DAILY #60 tab 08/29/20 Allergies Allergy/AdvReac Type Severity Reaction Status Date / Time No Known Drug Allergies Allergy Verified 05/29/20 16:54 Review of Systems Constitutional Constitutional: Denies fever(s) Cardiovascular Cardiovascular: Denies chest pain and Denies dyspnea Respiratory Respiratory: Denies dyspnea Gastrointestinal Gastrointestinal: Reports abdominal pain, Denies change in bowel habits, Denies nausea and Denies vomiting Genitourinary Genitourinary: Denies dysuria Genitourinary: Denies dysuria Comments: Urinary frequency Integumentary/Breasts Skin/Breast: Denies rash Neurologic Neurologic: Denies behavioral changes Psychiatric Psychiatric: Denies behavioral changes Hematologic/Lymphatic On Anticoagulants: No Allergic/Immunologic Allergic/Immunologic: Denies urticaria Patient History Medical History (Updated 08/29/20 @ 04:51 by Osvaldo Pizarro DO) Healthy adult Surgical History No pertinent past surgical history Social History marital status: unmarried,single pets and animals: No education level: high school seatbelt use: always helmet use: Yes Smoking Status: Never smoker during the past year weight has: remained stable well-balanced diet: daily or most days daily servings fruits/ve-4 caffeine: Yes eating out: 1-3 times/week Smoking Status: Never smoker alcohol intake frequency: 0-2 drinks per day Substance Use Type: does not use Exam Initial Vital Signs Initial Vital Signs: Vital Signs Temperature 98.6 F 08/29/20 03:16 Pulse Rate 85 08/29/20 03:16 Respiratory Rate 16 08/29/20 03:16 Blood Pressure 117/60 08/29/20 03:16 Pulse Oximetry 99 08/29/20 03:16 Const General: cooperative and comfortable Limitations: mental status not altered Resp Effort & Inspection: normal respiratory effort Cardio Rate: regular rate GI Inspection: non-distended Palpation: soft, No firm and No tender Skin Lesions: no lesions Rashes: no rashes Neuro General: patient alert, patient awake and patient oriented x3 Cognition: normal cognition Speech: speech normal Extrem General: normal to inspection and capillary refill normal Psych Appearance: grossly normal and well kempt Course Orders Ordered: ED Orders 08/29/20 03:18 ABO RH Type Stat Basic Metabolic Panel Stat Complete Blood Count AUTO DIFF Stat HCG Quantitative /Beta subunit Stat 08/29/20 03:25 US OB <= 14 weeks fetus Stat Vital Signs Vital signs: Vital Signs - 8 hr 08/29/20 03:16 Temperature 98.6 F Pulse Rate 85 Respiratory Rate 16 Blood Pressure 117/60 Pulse Oximetry 99 Medical Decision Making Lab Data Lab results reviewed: Yes I reviewed the patient's lab results. Result diagrams: 08/29/20 03:30 08/29/20 03:30 Labs: Lab Results 08/29/20 08/29/20 08/29/20 Range/Units 03:30 03:30 03:30 WBC 10.2 (4.5-11.0) X10^3/uL RBC 5.04 (4.0-5.2) X10^6/uL Hgb 13.9 (12.0-16.0) g/dL Hct 41.5 (36-46) % MCV 82.4 (80-100) fL MCH 27.5 (26-34) PG MCHC 33.4 (30-36) % RDW 13.6 (11.6-14.8) % Plt Count 334 (150-400) X10^3/uL Neut % (Auto) 68.2 (50-75) % Lymph % (Auto) 22.7 L (25-40) % [place] % (Auto) 7.7 (3-14) % Eos % (Auto) 0.9 L (2-4) % Baso % (Auto) 0.5 (0-2) % Neut # (Auto) 7000 (3387-6493) /uL Lymph # (Auto) 2300 (1054-1177) /uL [place] # (Auto) 800 (0-900) /uL Eos # (Auto) 100 (0-450) /uL Baso # (Auto) 0 (0-100) /uL Sodium 134 L (137-145) mmol/L Potassium 3.4 (3.4-5.1) mmol/L Chloride 105 (98-107) mmol/L Carbon Dioxide 23 (22-32) mmol/L BUN 15 (7-17) mg/dL Creatinine 0.46 L (0.52-1.04) mg/dL Estimated GFR > 60.0 (>60) mL/min BUN/Creatinine Ratio 32.6 H (6-22) Glucose 106 H (70-100) mg/dL Calcium 9.2 (8.4-10.2) mg/dL HCG, Quant 28026 mIU/mL Blood Type O Positive Urine Dip Bedside Urine Glucose 1000 mg/dl Bedside Urine Bilirubin - Negative Bedside Urine Ketone - Negative Urine Specific [place] 1.030 Bedside Urine Occult Blood - Negative Bedside Urine pH 6 Bedside Urine Protein - Negative Bedside Urine Urobilinogen - Negative Bedside Urine Nitrite - Negative Bedside Urine Leukocytes - Negative Esterase Point of care testing: Urine Dip Bedside Urine Glucose 1000 mg/dl Bedside Urine Bilirubin - Negative Bedside Urine Ketone - Negative Urine Specific [place] 1.030 Bedside Urine Occult Blood - Negative Bedside Urine pH 6 Bedside Urine Protein - Negative Bedside Urine Urobilinogen - Negative Bedside Urine Nitrite - Negative Bedside Urine Leukocytes - Negative Esterase Imaging Data US - OB: Radiologist's Impression: Preliminary report Live intrauterine gestation corresponding to 6 weeks 1 day Positive cardiac activity at 101 beats per minute MDM Narrative Medical decision making narrative: Patient is Rh positive. Labs are unremarkable. Does have a single IUP corresponding to 6 weeks 1 day on the ultrasound however bradycardic at 101 beats per minute. No indication for RhoGAM. No indication for antibiotics. I did discuss this with the patient. We did discuss bleeding in 1st trimester with this could were present. We also discussed that the heart rate was lower than we would expected and there is a recommendation for follow-up ultrasound in 1-2 weeks. We discussed return precautions and follow-up instructions. She expressed understanding agreement. Discharge Plan Departure Patient Disposition: Home Clinical Impression: Vaginal bleeding affecting early Instructions: DI for Vaginal Bleeding During Activity Restrictions/Additional Instructions: Your blood type is O positive. The ultrasound today does show a corresponding to 6 weeks 1 day. Like we discussed the heart rate of the baby was slightly lower than what we would expect so there is a recommendation for a follow-up ultrasound in 1-2 weeks. You can contact the health resources coordinator here at the hospital at [phone]. This individual can help you establish a primary provider. You can also contact the [facility] at [phone] or and [facility] medicine at [phone] or [facility] at [phone]. All of these Medical group's have OB providers. Start taking the vitamins. Return to the emergency department for any new or worsening symptoms like we discussed Prescriptions: New PNV 119-iron fum-folic acid 29 mg iron- 1 mg tablet 1 tab PO DAILY Qty: 60 RF: 2 No Action dicyclomine 10 mg capsule 10 mg PO QID PRN (Reason: abdominal pain) Qty: 30 RF: 0 tolterodine [Detrol LA] 2 mg capsule,extended release 24hr 2 mg PO DAILY Qty: 14 RF: 0 Hold Instructions: Home Medication placed on hold at Doctor's office
--- NOTE | 2020-08-29 03:25 | DI.US.S_ITS ---
PROCEDURE: US OB <= 14 WEEKS FETUS INDICATIONS: BLEEDING OUTSIDE/PRIOR DATING DATA: Last menstrual period (LMP): 07/11/2020. LMP-based estimated date of delivery (DONNA): 04/17/2021. First dating scan (date and location): 08/29/2020. Estimated date of delivery (DONNA) from first dating scan: 04/23/2021. TECHNIQUE: Real-time scanning was performed of the fetus and maternal pelvic organs, with image documentation. Endovaginal scanning was also performed to better visualize the fetus and maternal ovaries. COMPARISON: None. FINDINGS: Embryo: Single live intrauterine is identified with crown-rump length measuring 4 mm corresponding to 6 weeks 1 day. heart tones are identified at 101 beats per minute. Measurement variability in dating: +/- 4 weeks by LMP, +/- 7 days by mean sac diameter (use before 6 weeks gestation if crown-rump length not able to be measured), +/- 5 days by crown-rump length (up to 8 weeks 6 days gestation), +/- 7 days by crown-rump length (up to 13 weeks 6 days gestation). Maternal organs: Ovaries demonstrate a right corpus luteal cyst. . IMPRESSION: 1. Single live intrauterine with ultrasound gestational age of 6 weeks 1 day. Dictated by: Eleanor Lawson M.D. on 08/29/2020 at 9:22 Approved by: Eleanor Lawson M.D. on 08/29/2020 at 9:23
--- NOTE | 2020-08-29 03:35 | PC.NURSE ---
Patient stated she had normal period-like bleeding yesterday, and also had a positive home test. Endorses some cramping, but states she is no longer bleeding.
[2020-08-29 03:38] LABS: Add Manual Diff / Slide Review NO; Basophils Absolute Auto 0 /uL (0-100); Basophils Percent Auto 0.5 % (0-2); Eosinophils Absolute Auto 100 /uL (0-450); Eosinophils Percent Auto 0.9 % (2-4); Hematocrit 41.5 % (36-46); Hemoglobin 13.9 g/dL (12.0-16.0); Lymphocytes Absolute Auto 2300 /uL (1100-4500); Lymphocytes Percent Auto 22.7 % (25-40); Mean Corpuscular HGB Conc 33.4 % (30-36); Mean Corpuscular Hemoglobin 27.5 PG (26-34); Mean Corpuscular Volume 82.4 fL (80-100); Monocytes Absolute Auto 800 /uL (0-900); Monocytes Percent Auto 7.7 % (3-14); Neutrophils Absolute Auto 7000 /uL (1500-7000); Neutrophils Percent Auto 68.2 % (50-75); Platelet Count 334 X10^3/uL (150-400); Red Blood Cell Count 5.04 X10^6/uL (4.0-5.2); Red Cell Distribution Width 13.6 % (11.6-14.8); White Blood Cell Count 10.2 X10^3/uL (4.5-11.0)
[2020-08-29 03:52] LABS: BUN Creatinine Ratio 32.6 (6-22); Blood Urea Nitrogen 15 mg/dL (7-17); Calcium 9.2 mg/dL (8.4-10.2); Carbon Dioxide 23 mmol/L (22-32); Chloride 105 mmol/L (98-107); Estimated Glomerular Filt Rate > 60.0 mL/min (>60); Glucose 106 mg/dL (70-100); HEMOLYSIS < 15 (0-50); Potassium 3.4 mmol/L (3.4-5.1); Sodium 134 mmol/L (137-145)
[2020-08-29 04:34] LABS: HCG Quantitative /Beta subunit 24822 mIU/mL
== END 2020-08-29 04:59 | disposition home or self-care (01) ==
PROVIDERS: Emergency Provider Emergency Medicine
DX: O20.9 Hemorrhage in early pregnancy, unspecified (principal); Z3A.01 Less than 8 weeks gestation of pregnancy
CPT/HCPCS: 76801; 76817; 80048; 81003; 84702; 85025; 86900; 86901; 99283; 99284

== ENCOUNTER 2020-08-30 22:09 | Emergency (ER) | payer OTHER, MEDICAID, SELFPAY ==
[2020-08-30 22:18] VITALS: BP 112/61; PULSE 82; RESP 20; TEMP 36.7; O2SAT 98; BMI 22.9
--- NOTE | 2020-08-30 22:24 | ED.GENADULT ---
HPI - General Adult General Chief complaint: Abdominal Pain Stated complaint: spotting is worse, 6 weeks Time Seen by Provider: 08/30/20 22:19 Source: patient Mode of arrival: Ambulatory Limitations: no limitations History of Present Illness HPI narrative: Patient is a 19-year-old at approximately 6 weeks EGA who I evaluated the emergency department approximately 48 hours ago for abdominal pain and bleeding. She had an ultrasound performed at that time which showed a intrauterine however the heart rate was only 101 beats per minute. She states that her bleeding stopped but then returned today. No fevers. She is Rh positive. Related Data Previous Rx's Medication Instructions Recorded tolterodine 2 mg capsule,extended 2 mg PO DAILY #14 cap 04/02/19 release 24 hr dicyclomine 10 mg capsule 10 mg PO QID PRN #30 cap 05/18/19 PNV 119-iron fum-folic acid 1 tab PO DAILY #60 tab 08/29/20 Allergies Allergy/AdvReac Type Severity Reaction Status Date / Time No Known Drug Allergies Allergy Verified 05/29/20 16:54 Review of Systems Constitutional Constitutional: Denies fever(s) Cardiovascular Cardiovascular: Denies chest pain and Denies dyspnea Respiratory Respiratory: Denies dyspnea Gastrointestinal Gastrointestinal: Reports abdominal pain, Denies nausea and Denies vomiting Genitourinary Genitourinary: Denies dysuria Genitourinary: Denies dysuria and Reports vaginal discharge Musculoskeletal Musculoskeletal: Denies arthralgias and Denies myalgias Integumentary/Breasts Skin/Breast: Denies lesions and Denies rash Neurologic Neurologic: Denies behavioral changes Psychiatric Psychiatric: Denies behavioral changes Hematologic/Lymphatic On Anticoagulants: No Allergic/Immunologic Allergic/Immunologic: Denies urticaria Patient History Medical History (Updated 08/30/20 @ 23:20 by Osvaldo Pizarro DO) Healthy adult Surgical History No pertinent past surgical history Social History marital status: unmarried,single pets and animals: No education level: high school seatbelt use: always helmet use: Yes Smoking Status: Never smoker during the past year weight has: remained stable well-balanced diet: daily or most days daily servings fruits/ve-4 caffeine: Yes eating out: 1-3 times/week Smoking Status: Never smoker alcohol intake frequency: 0-2 drinks per day Substance Use Type: does not use Exam Initial Vital Signs Initial Vital Signs: Vital Signs Temperature 98.1 F 08/30/20 22:18 Pulse Rate 82 08/30/20 22:18 Respiratory Rate 20 08/30/20 22:18 Blood Pressure 112/61 08/30/20 22:18 Pulse Oximetry 98 08/30/20 22:18 Const General: cooperative and comfortable Limitations: mental status not altered HENSC Head: normal to inspection and normocephalic Resp Effort & Inspection: normal respiratory effort Cardio Rate: regular rate GI Inspection: non-distended Skin Lesions: no lesions Rashes: no rashes Neuro General: patient alert and patient awake Cognition: normal cognition Speech: speech normal Extrem General: capillary refill normal Psych Appearance: grossly normal and well kempt Course Orders Ordered: ED Orders 08/30/20 22:06 Complete Blood Count AUTO DIFF Stat HCG Quantitative /Beta subunit Stat Vital Signs Vital signs: Vital Signs - 8 hr 08/30/20 22:18 Temperature 98.1 F Pulse Rate 82 Respiratory Rate 20 Blood Pressure 112/61 Pulse Oximetry 98 Medical Decision Making Lab Data Lab results reviewed: Yes I reviewed the patient's lab results. Result diagrams: 08/30/20 22:06 Labs: Lab Results 08/30/20 08/30/20 Range/Units 22:06 22:06 WBC 8.8 (4.5-11.0) X10^3/uL RBC 4.94 (4.0-5.2) X10^6/uL Hgb 13.8 (12.0-16.0) g/dL Hct 41.1 (36-46) % MCV 83.1 (80-100) fL MCH 27.9 (26-34) PG MCHC 33.5 (30-36) % RDW 13.5 (11.6-14.8) % Plt Count 323 (150-400) X10^3/uL Neut % (Auto) 69.6 (50-75) % Lymph % (Auto) 21.4 L (25-40) % [place] % (Auto) 7.3 (3-14) % Eos % (Auto) 1.4 L (2-4) % Baso % (Auto) 0.3 (0-2) % Neut # (Auto) 6100 (9069-4953) /uL Lymph # (Auto) 1900 (2342-3763) /uL [place] # (Auto) 600 (0-900) /uL Eos # (Auto) 100 (0-450) /uL Baso # (Auto) 0 (0-100) /uL HCG, Quant 31556 mIU/mL MDM Narrative Medical decision making narrative: Patient is Rh positive. She has a known intrauterine from an ultrasound a couple days ago. Her hCG quantitative levels today are approximately 4 hours shy of 48 hours from the prior lab draw. Today's number is higher than the previous number however not double. Given the ultrasound result a couple days ago which showed a heart rate of 101 and the levels today I do have some concern about the viability of her . Her presentation today I do not believe warrants a repeat ultrasound. I did discuss with her the results of the lab test today in the concern about viability. After last visit she was able to contact a OB provider. She was instructed that she needed to contact them tomorrow to discuss a repeat quantitative in 48 hours. She was given return precautions and follow-up instructions. She was also given a copy of her labs. Discharge Plan Departure Patient Disposition: Home Clinical Impression: Vaginal bleeding affecting early Instructions: DI for Vaginal Bleeding During Activity Restrictions/Additional Instructions: I recommend that tomorrow you contact the OB provider that she had made contact with telling them that you were seen again in the emergency department this evening and that your hormone level is elevating but is not as high as we would expect compare to the 1 a couple days ago. Continue to take your vitamins. I do recommend a repeat hormone level in 48 hours from now. Return to the emergency department for any new or worsening symptoms Prescriptions: No Action dicyclomine 10 mg capsule 10 mg PO QID PRN (Reason: abdominal pain) Qty: 30 RF: 0 tolterodine [Detrol LA] 2 mg capsule,extended release 24hr 2 mg PO DAILY Qty: 14 RF: 0 Hold Instructions: Home Medication placed on hold at Doctor's office PNV 119-iron fum-folic acid 29 mg iron- 1 mg tablet 1 tab PO DAILY Qty: 60 RF: 2
[2020-08-30 22:39] LABS: Add Manual Diff / Slide Review NO; Basophils Absolute Auto 0 /uL (0-100); Basophils Percent Auto 0.3 % (0-2); Eosinophils Absolute Auto 100 /uL (0-450); Eosinophils Percent Auto 1.4 % (2-4); Hematocrit 41.1 % (36-46); Hemoglobin 13.8 g/dL (12.0-16.0); Lymphocytes Absolute Auto 1900 /uL (1100-4500); Lymphocytes Percent Auto 21.4 % (25-40); Mean Corpuscular HGB Conc 33.5 % (30-36); Mean Corpuscular Hemoglobin 27.9 PG (26-34); Mean Corpuscular Volume 83.1 fL (80-100); Monocytes Absolute Auto 600 /uL (0-900); Monocytes Percent Auto 7.3 % (3-14); Neutrophils Absolute Auto 6100 /uL (1500-7000); Neutrophils Percent Auto 69.6 % (50-75); Platelet Count 323 X10^3/uL (150-400); Red Blood Cell Count 4.94 X10^6/uL (4.0-5.2); Red Cell Distribution Width 13.5 % (11.6-14.8); White Blood Cell Count 8.8 X10^3/uL (4.5-11.0)
[2020-08-30 23:08] LABS: HCG Quantitative /Beta subunit 32564 mIU/mL
[2020-08-30 23:32] VITALS: BP 104/57; PULSE 82; RESP 20; O2SAT 98
== END 2020-08-30 23:30 | disposition home or self-care (01) ==
PROVIDERS: Emergency Provider Emergency Medicine
DX: O20.9 Hemorrhage in early pregnancy, unspecified (principal); Z3A.01 Less than 8 weeks gestation of pregnancy
CPT/HCPCS: 36415; 84702; 85025; 99281; 99283

== ENCOUNTER → 2020-09-01 12:35 | Outpatient (CLI) | payer OTHER, MEDICAID, SELFPAY ==
[2020-09-01 14:16] LABS: HCG Quantitative /Beta subunit 39156 mIU/mL
== END ==
PROVIDERS: Referring Provider Obstetrics & Gynecology; Visit Provider Obstetrics & Gynecology
DX: Z34.01 Encounter for supervision of normal first pregnancy, first trimester (principal)
CPT/HCPCS: 36415; 84702

== ENCOUNTER 2020-09-06 17:48 | Emergency (ER) | payer OTHER, MEDICAID, SELFPAY ==
[2020-09-06 17:51] VITALS: BP 144/63; PULSE 74; RESP 16; TEMP 36.9; O2SAT 98; BMI 22.9
--- NOTE | 2020-09-06 18:11 | ED_ITS ---
HPI - Abdominal Pain General Chief Complaint: Abdominal Pain Stated Complaint: stomach pain Time Seen by Provider: 09/06/20 17:49 Source: patient Mode of arrival: Ambulatory Limitations: no limitations History of Present Illness HPI narrative: The patient is , approximately 7 weeks . She presents with crampy upper abdominal pain. She has mild nausea, no emesis. Pain does not radiate to the back. She has no dysuria or hematuria with the symptoms. Her appetite seems to be normal. She complains of diarrhea, onset of diarrhea started about the time she became . She has no recent antibiot ic use, no recent travel. She has no chronic GI problems. She has no vaginal discharge, no bleeding. 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 Related Data Previous Rx's Medication Instructions Recorded PNV 119-iron fum-folic acid 1 tab PO DAILY #60 tab 08/29/20 ondansetron 4 mg PO Q6-8H PRN #20 tab 09/06/20 Allergies Allergy/AdvReac Type Severity Reaction Status Date / Time No Known Drug Allergies Allergy Verified 09/03/20 11:39 Review of Systems Constitutional Constitutional: Reports as per HPI, Denies anorexia, Denies chills, Reports fatigue, Denies fever(s) and Denies headache(s) ENT Ears, Nose, Mouth, and Throat: Denies headache(s) and Denies sore throat Cardiovascular Cardiovascular: Denies chest pain, Denies rapid heart rate and Denies dyspnea Respiratory Respiratory: Denies cough and Denies dyspnea Gastrointestinal Gastrointestinal: Reports as per HPI Genitourinary Genitourinary: Reports as per HPI Genitourinary: Reports as per HPI Musculoskeletal Musculoskeletal: Denies back pain Integumentary/Breasts Comments: No rash. Neurologic Neurologic: Denies headache(s) Endocrine Endocrine: Reports fatigue Patient History Medical History (Updated 09/06/20 @ 19:55 by Oliverio Arana MD) Healthy adult Surgical History No pertinent past surgical history Social History marital status: unmarried,single pets and animals: No education level: high school seatbelt use: always helmet use: Yes Smoking Status: Never smoker during the past year weight has: remained stable well-balanced diet: daily or most days daily servings fruits/ve-4 caffeine: Yes eating out: 1-3 times/week Smoking Status: Never smoker alcohol intake frequency: 0-2 drinks per day Substance Use Type: does not use Exam Initial Vital Signs Initial Vital Signs: Vital Signs Temperature 98.4 F 09/06/20 17:51 Pulse Rate 74 09/06/20 17:51 Respiratory Rate 16 09/06/20 17:51 Blood Pressure 144/63 H 09/06/20 17:51 Pulse Oximetry 98 09/06/20 17:51 Const General: cooperative and healthy appearing [facility] Head: normocephalic and atraumatic Mouth: oral mucosae normal Resp Auscultation: clear to auscultation bilaterally Cardio Rate: regular rate Rhythm: regular rhythm Heart Sounds: S1 normal, S2 normal, no click, no gallops, no murmurs and no rubs Pulses: normal peripheral pulses GI Other: Mild right upper abdominal discomfort with palpation. No masses. No distension. No guarding rebound. Normal bowel sounds. Abdomen exam is otherwise benign. Neuro General: patient alert and patient oriented x3 Extrem Other: No lower extremity edema or calf tenderness Course Course Course Narrative: Her urine is clear, labs are reassuring. Abdominal cramping is seen related to . She will be advised use Zofran as needed for nausea, Tylenol as needed for pain. She is advised remain well hydrated. She can follow up with PCM for further guidance. Orders Ordered: ED Orders 09/06/20 18:30 Complete Blood Count AUTO DIFF Stat Comprehensive Metabolic Panel Stat Lipase Stat Discontinued Medications Sodium Chloride (Normal Saline 0.9%) 1,000 mls @ 1,000 mls/hr IV BOLUS ONE Stop: 09/06/20 19:15 Last Admin: 09/06/20 18:33 Dose: 1,000 mls/hr Documented by: NATACHA Ondansetron HCl (Ondansetron 4 Mg/2 Ml Inj) 4 mg IV NOW ONE Stop: 09/06/20 18:17 Last Admin: 09/06/20 18:32 Dose: 4 mg Documented by: NATACHA Vital Signs Vital signs: Vital Signs - 8 hr 09/06/20 17:51 Temperature 98.4 F Pulse Rate 74 Respiratory Rate 16 Blood Pressure 144/63 H Pulse Oximetry 98 MDM - Abdominal Pain Lab Data Result diagrams: 09/06/20 18:30 09/06/20 18:30 Labs: Lab Results 09/06/20 09/06/20 Range/Units 18:30 18:30 WBC 9.3 (4.5-11.0) X10^3/uL RBC 4.84 (4.0-5.2) X10^6/uL Hgb 13.5 (12.0-16.0) g/dL Hct 39.8 (36-46) % MCV 82.2 (80-100) fL MCH 27.9 (26-34) PG MCHC 34.0 (30-36) % RDW 13.6 (11.6-14.8) % Plt Count 313 (150-400) X10^3/uL Neut % (Auto) 77.8 H (50-75) % Lymph % (Auto) 17.8 L (25-40) % [place] % (Auto) 3.9 (3-14) % Eos % (Auto) 0.2 L (2-4) % Baso % (Auto) 0.3 (0-2) % Neut # (Auto) 7200 H (9371-7093) /uL Lymph # (Auto) 1700 (5401-0765) /uL [place] # (Auto) 400 (0-900) /uL Eos # (Auto) 0 (0-450) /uL Baso # (Auto) 0 (0-100) /uL Sodium 135 L (137-145) mmol/L Potassium 3.7 (3.4-5.1) mmol/L Chloride 103 (98-107) mmol/L Carbon Dioxide 23 (22-32) mmol/L BUN 12 (7-17) mg/dL Creatinine 0.40 L (0.52-1.04) mg/dL Estimated GFR > 60.0 (>60) mL/min BUN/Creatinine Ratio 30.0 H (6-22) Glucose 95 (70-100) mg/dL Calcium 8.7 (8.4-10.2) mg/dL Total Bilirubin 0.2 (0.2-1.3) mg/dL AST 29 (14-36) IU/L ALT 23 (<35) IU/L Alkaline Phosphatase 78 (38-126) U/L Total Protein 7.0 (6.3-8.2) g/dL Albumin 4.0 (3.5-5.0) g/dL Globulin 3.0 (1.7-4.1) g/dL Albumin/Globulin Ratio 1.3 (1.0-2.8) Lipase 59 (23-300) U/L Point of care testing: Urine Dip Bedside Urine Glucose 250 mg/dl Bedside Urine Bilirubin - Negative Bedside Urine Ketone - Negative Urine Specific [place] 1.020 Bedside Urine Occult Blood - Negative Bedside Urine pH 6.0 Bedside Urine Protein - Negative Bedside Urine Urobilinogen - Negative Bedside Urine Nitrite - Negative Bedside Urine Leukocytes - Negative Esterase Discharge Plan Departure Patient Disposition: Home Clinical Impression: Discomfort during Instructions: DI for -- Discomforts and Remedies Activity Restrictions/Additional Instructions: Be sure you are drinking plenty of water remain well hydrated. Zofran every 6 hours as needed for nausea. Tylenol 2 tablets every 4-6 hours as needed for pain. If symptoms persist, follow-up with your doctor. Return the ER if symptoms escalate. Prescriptions: New ondansetron 4 mg tablet,disintegrating 4 mg PO Q6-8H PRN (Reason: nausea and vomiting) Qty: 20 RF: 0 No Action PNV 119-iron fum-folic acid 29 mg iron- 1 mg tablet 1 tab PO DAILY Qty: 60 RF: 2 Referrals: Miscellaneous,Doctor, [Primary Care Provider] -
[2020-09-06] MEDS: ONDANSETRON 4 MG/2 ML INJ IV (18:32)
[2020-09-06] MEDS: SODIUM CHLORIDE 0.9% 1,000 ML 1000 ML IV (18:33)
[2020-09-06 18:42] LABS: Add Manual Diff / Slide Review NO; Basophils Absolute Auto 0 /uL (0-100); Basophils Percent Auto 0.3 % (0-2); Eosinophils Absolute Auto 0 /uL (0-450); Eosinophils Percent Auto 0.2 % (2-4); Hematocrit 39.8 % (36-46); Hemoglobin 13.5 g/dL (12.0-16.0); Lymphocytes Absolute Auto 1700 /uL (1100-4500); Lymphocytes Percent Auto 17.8 % (25-40); Mean Corpuscular Hemoglobin 27.9 PG (26-34); Mean Corpuscular Volume 82.2 fL (80-100); Monocytes Absolute Auto 400 /uL (0-900); Monocytes Percent Auto 3.9 % (3-14); Neutrophils Absolute Auto 7200 /uL (1500-7000); Neutrophils Percent Auto 77.8 % (50-75); Platelet Count 313 X10^3/uL (150-400); Red Blood Cell Count 4.84 X10^6/uL (4.0-5.2); Red Cell Distribution Width 13.6 % (11.6-14.8); White Blood Cell Count 9.3 X10^3/uL (4.5-11.0)
[2020-09-06 18:54] LABS: Alanine Aminotransferase 23 IU/L (<35); Albumin Globulin Ratio 1.3 (1.0-2.8); Alkaline Phosphatase 78 U/L (38-126); Aspartate Aminotransferase 29 IU/L (14-36); Bilirubin Total 0.2 mg/dL (0.2-1.3); Blood Urea Nitrogen 12 mg/dL (7-17); Calcium 8.7 mg/dL (8.4-10.2); Carbon Dioxide 23 mmol/L (22-32); Chloride 103 mmol/L (98-107); Estimated Glomerular Filt Rate > 60.0 mL/min (>60); Glucose 95 mg/dL (70-100); HEMOLYSIS 15 (0-50); Lipase 59 U/L (23-300); Potassium 3.7 mmol/L (3.4-5.1); Sodium 135 mmol/L (137-145)
[2020-09-06 20:07] VITALS: BP 112/55; PULSE 71; RESP 20; O2SAT 100
== END 2020-09-06 20:09 | disposition home or self-care (01) ==
PROVIDERS: Emergency Provider Emergency Medicine
DX: O26.891 Other specified pregnancy related conditions, first trimester (principal); R10.10 Upper abdominal pain, unspecified; R19.7 Diarrhea, unspecified; R11.0 Nausea; Z3A.01 Less than 8 weeks gestation of pregnancy
CPT/HCPCS: 36415; 80053; 81003; 83690; 85025; 96361; 96374; 99284; J2405

== ENCOUNTER → 2020-10-17 12:37 | Outpatient (CLI) | payer OTHER, MEDICAID, SELFPAY ==
[2020-10-17 13:07] LABS: Add Manual Diff / Slide Review NO; Basophils Absolute Auto 0 /uL (0-100); Basophils Percent Auto 0.2 % (0-2); Eosinophils Absolute Auto 100 /uL (0-450); Eosinophils Percent Auto 0.7 % (2-4); Lymphocytes Absolute Auto 1500 /uL (1100-4500); Lymphocytes Percent Auto 19.1 % (25-40); Mean Corpuscular HGB Conc 34.2 % (30-36); Mean Corpuscular Hemoglobin 28.2 PG (26-34); Mean Corpuscular Volume 82.5 fL (80-100); Monocytes Absolute Auto 400 /uL (0-900); Monocytes Percent Auto 5.2 % (3-14); Neutrophils Absolute Auto 5800 /uL (1500-7000); Neutrophils Percent Auto 74.8 % (50-75); Platelet Count 244 X10^3/uL (150-400); Red Blood Cell Count 4.61 X10^6/uL (4.0-5.2); Red Cell Distribution Width 13.7 % (11.6-14.8); White Blood Cell Count 7.7 X10^3/uL (4.5-11.0)
[2020-10-17 13:20] LABS: Appearance Urine UA CLEAR; Bilirubin Urine UA NEGATIVE (NEGATIVE); Color Urine UA YELLOW; Glucose Urine UA 2+ g/dL (Negative); Ketones Urine UA NEGATIVE (NEGATIVE); Leukocyte Esterase Urine UA NEGATIVE (NEGATIVE); Nitrite Urine UA NEGATIVE (Negative); Occult Blood Urine UA NEGATIVE (Negative); Protein Urine UA NEGATIVE (Negative); Specific Gravity Urine UA 1.025 (1.000-1.035); Urobilinogen Urine UA 0.2 E.U./dL (0.2)
[2020-10-17 13:23] LABS: pH Urine UA 5.5 (4.5-8.0)
[2020-10-17 17:14] LABS: Hepatitis B Surface Antigen NEGATIVE s/c (NEGATIVE); Rubella Antibody IgG 11.9 IU/mL (>15)
[2020-10-17 17:37] LABS: HIV 1 & 2 Ab/Ag 4th Gen Combo NEGATIVE (NEGATIVE); Hep C Virus Ab w/Reflex Quant NEGATIVE s/c (NEGATIVE)
[2020-10-18 08:45] LABS: RPR Screen Non Reactive (Non Reactive)
[2020-10-18 10:46] LABS: Varicella IgG Antibody <135 index (Immune >165)
== END ==
PROVIDERS: Referring Provider Obstetrics & Gynecology; Visit Provider Obstetrics & Gynecology
DX: Z34.01 Encounter for supervision of normal first pregnancy, first trimester (principal)
CPT/HCPCS: 36415; 80055; 81003; 86787; 86803; 87086; 87389

== ENCOUNTER 2020-10-24 23:32 | Emergency (ER) | payer OTHER, MEDICAID, SELFPAY ==
[2020-10-24 23:39] VITALS: BP 126/65; PULSE 77; RESP 16; TEMP 36.8; O2SAT 96; BMI 22.0
--- NOTE | 2020-10-25 00:33 | ED.BACK ---
HPI - Back Pain/Injury General Chief Complaint: Back Pain/Injury Stated Complaint: back pain x 1 week Time Seen by Provider: 10/25/20 00:11 Source: patient and family History of Present Illness HPI Narrative: Patient here with . Complains 1 week of left lower back and mid back pain. No known injuries. No fever chills. No dysuria. No urinary frequency. Hurts with movement. Patient is 13 weeks followed by OBGYN Dr. Braswell, denies any abdominal pain or pelvic pain or vaginal bleeding or discharge or fluid leak. No history kidney stones. Has not tried any medications for pain relief including Tylenol Pain worse with movement and standing. Prefers to lay on her right side. Denies any leg or limb numbness tingling or weakness. Expected due date April 25 Related Data Previous Rx's Medication Instructions Recorded PNV 119-iron fum-folic acid 1 tab PO DAILY #60 tab 08/29/20 Allergies Allergy/AdvReac Type Severity Reaction Status Date / Time No Known Drug Allergies Allergy Verified 10/17/20 12:01 Review of Systems Review of Systems Narrative: GENERAL: Denies chills, fatigue, malaise, fever, sweats. HEENT: Denies sinus pain, ear pain, sore throat RESPIRATORY: Denies dyspnea, cough CARDIOVASCULAR: Denies chest pain, palpitations GASTROINTESTINAL: Denies nausea, vomiting, abdominal pain : Denies dysuria, frequency, hematuria MUSCULOSKELETAL: Complain muscle denies bony pain SKIN: Denies rash, skin lesions NEUROLOGIC: Denies weakness, numbness ROS Unobtainable: All systems reviewed & are unremarkable except as noted in HPI and below Patient History Medical History (Updated 10/25/20 @ 01:34 by Adi Hartman MD) Healthy adult Surgical History No pertinent past surgical history Family History Mother No problems noted. Father No problems noted. Grandmother No problems noted. Grandfather No problems noted. Grandmother No problems noted. Grandfather No problems noted. Brother No problems noted. Sister No problems noted. 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 [employer] : aware and precautions feliciano/restoration: Taoism special feliciano needs: No seatbelt use: always helmet use: Yes Smoking Status: Never smoker second hand exposure: No alcohol intake: never substance use type: does not use and marijuana (stopoped long ago : not while ) during the past year weight has: remained stable well-balanced diet: daily or most days daily servings fruits/ve-4 caffeine: Yes eating out: 1-3 times/week Smoking Status: Never smoker alcohol intake frequency: 0-2 drinks per day Substance Use Type: does not use Exam Narrative Exam Narrative: GENERAL: in no distress, not toxic not dyspneic HEAD: Normocephalic. EYES: Pupils equal round No scleral icterus. No injection no discharge ENT: Mucous membranes moist. NECK: Trachea midline. CARDIOVASCULAR: Regular rate and rhythm without murmurs RESPIRATORY: Clear to auscultation. Breath sounds equal bilaterally. No wheezes, rales, or rhonchi. GASTROINTESTINAL: Abdomen soft, non-tender bowel sounds present no peritoneal signs. Nontender. EXTREMITIES: No gross deformities. BACK: Diffuse tenderness of the left low paralumbar muscles extending to the left lower rib paralumbar. No midline tenderness or step-off. Able stand. Pain with walking. Increased pain with side bends left and right and moving/flexing forward and extending back. NEURO: AOx4. SKIN: Warm and dry PSYCH: Not anxious, is cooperative Initial Vital Signs Initial Vital Signs: Vital Signs Temperature 98.2 F 10/24/20 23:39 Pulse Rate 77 10/24/20 23:39 Respiratory Rate 16 10/24/20 23:39 Blood Pressure 126/65 10/24/20 23:39 Pulse Oximetry 96 10/24/20 23:39 Course Course Course Narrative: heart tones 166 Orders Ordered: ED Orders 10/25/20 00:32 Complete Blood Count AUTO DIFF Stat Comprehensive Metabolic Panel Stat Urinalysis and Microscopic Stat Discontinued Medications Acetaminophen (Acetaminophen 325 Mg Tablet) 650 mg PO NOW ONE Stop: 10/25/20 00:33 Last Admin: 10/25/20 00:38 Dose: 650 mg Documented by: Reevaluation(s) Reevaluation #1: Spoke with patient and results. Results are reassuring. I did speak with OBGYN on-call for Dr. Braswell, patient to call office today for office recheck this week and continue with Tylenol for pain. Time: 01:33 Consultations Consultation #1: Spoke with nurse practitioner Maureen, laboratory studies reassuring. Likely not pyelonephritis or UTI. Agree with treatment plan with Tylenol and will need to see patient in office this week. Time: 01:33 Vital Signs Vital signs: Vital Signs - 8 hr 10/24/20 23:39 Temperature 98.2 F Pulse Rate 77 Respiratory Rate 16 Blood Pressure 126/65 Pulse Oximetry 96 MDM - Back Pain/Injury Medical Records Attestation: I reviewed the patient's medical records. Medical records narrative: [address] [id number] ReportSigned Patient: Ami Wong CMR#: [id number]: 2000Acct:[id number]/Sex: 19 / FDate of Service: 08/29/20Loc: EDAccession Number: [id number] Procedure: US OB <= 14 weeks fetus Ordering Provider: Osvaldo Pizarro D.O. PROCEDURE: US OB <= 14 WEEKS FETUS INDICATIONS: BLEEDING OUTSIDE/PRIOR DATING DATA: Last menstrual period (LMP): 07/11/2020. LMP-based estimated date of delivery (DONNA): 04/17/2021. First dating scan (date and location): 08/29/2020. Estimated date of delivery (DONNA) from first dating scan: 04/23/2021. TECHNIQUE: Real-time scanning was performed of the fetus and maternal pelvic organs, with image documentation. Endovaginal scanning was also performed to better visualize the fetus and maternal ovaries. COMPARISON: None. FINDINGS: Embryo: Single live intrauterine is identified with crown-rump length measuring 4 mm corresponding to 6 weeks 1 day. heart tones are identified at 101 beats per minute. Measurement variability in dating: +/- 4 weeks by LMP, +/- 7 days by mean sac diameter (use before 6 weeks gestation if crown-rump length not able to be measured), +/- 5 days by crown-rump length (up to 8 weeks 6 days gestation), +/- 7 days by crown-rump length (up to 13 weeks 6 days gestation). Maternal organs: Ovaries demonstrate a right corpus luteal cyst. . IMPRESSION: 1. Single live intrauterine with ultrasound gestational age of 6 weeks 1 day. Dictated by: Eleanor Lawson M.D. on 08/29/2020 at 9:22 Approved by: Eleanor Lawson M.D. on 08/29/2020 at 9:23 Lab Data Result diagrams: 10/25/20 00:50 10/25/20 00:50 Labs: Lab Results 10/25/20 10/25/20 Range/Units 00:50 00:50 WBC 9.7 (4.5-11.0) X10^3/uL RBC 4.70 (4.0-5.2) X10^6/uL Hgb 13.4 (12.0-16.0) g/dL Hct 38.3 (36-46) % MCV 81.6 (80-100) fL MCH 28.5 (26-34) PG MCHC 34.9 (30-36) % RDW 13.4 (11.6-14.8) % Plt Count 263 (150-400) X10^3/uL Neut % (Auto) 71.3 (50-75) % Lymph % (Auto) 20.0 L (25-40) % [place] % (Auto) 7.6 (3-14) % Eos % (Auto) 0.7 L (2-4) % Baso % (Auto) 0.4 (0-2) % Neut # (Auto) 6900 (8694-3142) /uL Lymph # (Auto) 1900 (6660-9555) /uL [place] # (Auto) 700 (0-900) /uL Eos # (Auto) 100 (0-450) /uL Baso # (Auto) 0 (0-100) /uL Sodium 137 (137-145) mmol/L Potassium 3.4 (3.4-5.1) mmol/L Chloride 105 (98-107) mmol/L Carbon Dioxide 22 (22-32) mmol/L BUN 13 (7-17) mg/dL Creatinine 0.37 L (0.52-1.04) mg/dL Estimated GFR > 60.0 (>60) mL/min BUN/Creatinine Ratio 35.1 H (6-22) Glucose 98 (70-100) mg/dL Calcium 9.2 (8.4-10.2) mg/dL Total Bilirubin 0.1 L (0.2-1.3) mg/dL AST 26 (14-36) IU/L ALT 21 (<35) IU/L Alkaline Phosphatase 73 (38-126) U/L Total Protein 6.9 (6.3-8.2) g/dL Albumin 3.9 (3.5-5.0) g/dL Globulin 3.0 (1.7-4.1) g/dL Albumin/Globulin Ratio 1.3 (1.0-2.8) Urine Dip Bedside Urine Glucose 1000 mg/dl Bedside Urine Bilirubin - Negative Bedside Urine Ketone - Negative Urine Specific [place] 1.030 Bedside Urine Occult Blood - Negative Bedside Urine pH 6 Bedside Urine Protein - Negative Bedside Urine Urobilinogen - Negative Bedside Urine Nitrite - Negative Bedside Urine Leukocytes - Negative Esterase MDM Narrative Medical decision making narrative: Appropriate for discharge home. Likely musculoskeletal. Not pyelonephritis. No fever. White cell count normal ongoing for 1 week. Laboratory studies reassuring. No imaging indicated this time. Reviewed with on-call OBGYN and agrees with treatment plan and follow-up in Tylenol for pain. Discharge Plan Departure Patient Disposition: Home Clinical Impression: Acute back pain Qualifiers: Back pain location: back pain in unspecified location Back pain laterality: left Qualified Code(s): M54.9 - Dorsalgia, unspecified Instructions: DI for Back Spasm Activity Restrictions/Additional Instructions: Return if worse or for any questions concerns. Continue home medications. May take Tylenol for pain. See your OBGYN doctor this week for recheck. Prescriptions: No Action PNV 119-iron fum-folic acid 29 mg iron- 1 mg tablet 1 tab PO DAILY Qty: 60 RF: 2 Referrals: Ifeoma Braswell MD [Physician] - Miscellaneous,MD Ailin [Primary Care Provider] -
[2020-10-25] MEDS: ACETAMINOPHEN 325 MG TABLET 650 MG PO (00:38)
[2020-10-25 01:05] LABS: Add Manual Diff / Slide Review NO; Basophils Absolute Auto 0 /uL (0-100); Basophils Percent Auto 0.4 % (0-2); Eosinophils Absolute Auto 100 /uL (0-450); Eosinophils Percent Auto 0.7 % (2-4); Hematocrit 38.3 % (36-46); Hemoglobin 13.4 g/dL (12.0-16.0); Lymphocytes Absolute Auto 1900 /uL (1100-4500); Mean Corpuscular HGB Conc 34.9 % (30-36); Mean Corpuscular Hemoglobin 28.5 PG (26-34); Mean Corpuscular Volume 81.6 fL (80-100); Monocytes Absolute Auto 700 /uL (0-900); Monocytes Percent Auto 7.6 % (3-14); Neutrophils Absolute Auto 6900 /uL (1500-7000); Neutrophils Percent Auto 71.3 % (50-75); Platelet Count 263 X10^3/uL (150-400); Red Cell Distribution Width 13.4 % (11.6-14.8); White Blood Cell Count 9.7 X10^3/uL (4.5-11.0)
[2020-10-25 01:13] LABS: Alanine Aminotransferase 21 IU/L (<35); Albumin 3.9 g/dL (3.5-5.0); Albumin Globulin Ratio 1.3 (1.0-2.8); Alkaline Phosphatase 73 U/L (38-126); Aspartate Aminotransferase 26 IU/L (14-36); BUN Creatinine Ratio 35.1 (6-22); Bilirubin Total 0.1 mg/dL (0.2-1.3); Blood Urea Nitrogen 13 mg/dL (7-17); Calcium 9.2 mg/dL (8.4-10.2); Carbon Dioxide 22 mmol/L (22-32); Chloride 105 mmol/L (98-107); Estimated Glomerular Filt Rate > 60.0 mL/min (>60); Glucose 98 mg/dL (70-100); HEMOLYSIS < 15 (0-50); Potassium 3.4 mmol/L (3.4-5.1); Sodium 137 mmol/L (137-145); Total Protein 6.9 g/dL (6.3-8.2)
[2020-10-25 01:40] VITALS: BP 96/53; PULSE 76; RESP 16; O2SAT 99
== END 2020-10-25 01:40 | disposition home or self-care (01) ==
PROVIDERS: Emergency Provider Emergency Medicine
DX: M54.9 Dorsalgia, unspecified (principal)
CPT/HCPCS: 36415; 80053; 81003; 85025; 99283; 99284

== ENCOUNTER → 2020-12-12 10:28 | Outpatient (CLI) | payer OTHER, MEDICAID, SELFPAY ==
--- NOTE | 2020-12-12 10:29 | DI.US.S_ITS ---
PROCEDURE: US OB >= 14 WEEKS FETUS INDICATIONS: Anatomy Scan OUTSIDE/PRIOR DATING DATA: Last menstrual period (LMP): 07/11/2020 . LMP-based estimated date of delivery (DONNA): 04/17/2021 . First dating scan (date and location): 08/29/2020 . Estimated date of delivery (DONNA) from first dating scan: 04/23/2021 . TECHNIQUE: Real-time scanning was performed of the fetus, with image documentation and biometric measurements. COMPARISON: [facility], OB <= 14 WEEKS FETUS, 10/17/2020, 12:35. [facility], OB <= 14 WEEKS FETUS, 09/19/2020, 9:07. [facility], PELVIC COMPLETE, 09/03/2020, 11:54. [facility], OB <= 14 WEEKS FETUS, 08/29/2020, 4:21. [facility], OB >= 14 WEEKS FETUS, 11/14/2020, 13:43. FINDINGS: General: A single living intrauterine gestation is present. Presentation: Vertex. Placenta: Placental position is anterior right lateral , without previa. Amniotic fluid index: 15.7 cm cm, normal range is 5-24 cm. heart rate: 144 beats per minute. Maternal cervical canal: 4.0 cm long. Normal lower limit is 2.5 cm. biometrics: Biparietal diameter: 5.2 cm 21 weeks 5 days Head circumference: 18.4 cm 20 weeks 5 days Abdominal circumference: 15.5 cm 20 weeks 5 days Femur length: 3.4 cm 20 weeks 6 days Estimated gestational age from initial scan: 21 weeks 1 Composite gestational age from present scan: 21 weeks 0 days Estimated weight and percentile: 376 g 26th percentile Measurement variability for biometric dating: +/- 7 days from 14 weeks to 15 weeks 6 days gestation, +/- 10 days from 16 weeks to 21 weeks 6 days gestation, +/- 2 weeks from 22 weeks to 27 weeks 6 days gestation, +/- 3 weeks for 28 weeks gestation or later. weight reference: 4500 g or EFW >90/95% is considered macrosomia or large for gestational age. EFW <10% is small for gestational age. EFW 5% or less is considered intra-uterine growth restriction. Anatomic survey: Neuro: Ventricles are non-dilated at less than 10 mm. Cisterna magna is normal at 3-11 mm. Cerebellum is normal in size and morphology. Nuchal skin fold: Normal at less than 6 mm between 14-21 weeks gestational age. Face: Nose and lips, facial profile are normal. Spine: No evidence for spina bifida. Heart: 4-chambered heart is present, with normal ventricular outflow tracts. Diaphragm: Diaphragm is intact. Stomach: Left-sided stomach is present. Kidneys: No hydronephrosis. Normal is less than 5 mm in 2nd trimester, less than 7 mm in 3rd trimester. Cord: 3-vessel cord has orthotopic insertion. Bladder: Normal in size. Extremities: All 4 extremities identified. IMPRESSION: 1. Single live intrauterine . 2. Anatomy is within normal limits. Dictated by: Eleanor Lawson M.D. on 12/12/2020 at 16:19 Approved by: Eleanor Lawson M.D. on 12/12/2020 at 16:21
== END ==
PROVIDERS: Referring Provider Obstetrics & Gynecology; Visit Provider Obstetrics & Gynecology
DX: Z34.02 Encounter for supervision of normal first pregnancy, second trimester (principal); Z3A.21 21 weeks gestation of pregnancy
CPT/HCPCS: 76811

== ENCOUNTER 2021-01-03 22:49 | Emergency (ER) | payer OTHER, MEDICAID, SELFPAY ==
[2021-01-03 22:56] VITALS: BP 111/68; PULSE 96; RESP 14; TEMP 36.7; O2SAT 100; BMI 35.7
[2021-01-03 23:00] VITALS: BP 115/67; PULSE 87; RESP 18; O2SAT 99
[2021-01-03] MEDS: SODIUM CHLORIDE 0.9% 1,000 ML 1000 ML IV (23:08)
[2021-01-03] MEDS: METOCLOPRAMIDE 10 MG/2 ML INJ IV (23:08)
--- NOTE | 2021-01-03 23:17 | ED_ITS ---
HPI - Syncope General Chief Complaint: Syncope Stated Complaint: Syncope Time Seen by Provider: 01/03/21 22:55 History of Present Illness HPI narrative: 20-year-old female nonsmoker without chronic medical problems presents by EMS for evaluation of a syncopal episode prior to arrival. The patient is a at 24 weeks. She has had an unremarkable to this point. She had been arguing with family over the course of the day and was very emotional and engaged in he did discussion with her boyfriend when she apparently got rather worked up, felt lightheaded and then fell. She has had a mild headache though she did not strike her head or her neck. Family saw her and states that she did not land on her belly and immediately helped her up and there is no report of injury as a consequence of the fall. She was a bit confused and sluggish to respond with paramedics in route but moving all extremities and with stable vital signs. She has had no chest pain or shortness of breath. She has had no nausea, vomiting or diarrhea. She denies any dysuria, frequency or urgency. She has no vaginal bleeding or discharge Related Data Previous Rx's Medication Instructions Recorded vitamins no.119-iron 1 tab PO DAILY #60 tab 08/29/20 fumarate 29 mg-folic acid 1 mg tablet Allergies Allergy/AdvReac Type Severity Reaction Status Date / Time No Known Drug Allergies Allergy Verified 01/03/21 22:56 Review of Systems Review of Systems Narrative: GENERAL: Denies chills, fatigue, malaise, fever, sweats. HEENT: Denies sinus pain, ear pain, sore throat, difficulty swallowing, dizziness. RESPIRATORY: Denies dyspnea, cough, wheezing, hemoptysis, sputum. CARDIOVASCULAR: Denies chest pain, palpitations, orthopnea, edema, GASTROINTESTINAL: Denies nausea, vomiting, abdominal pain, diarrhea, constipation, melena. : Denies dysuria, frequency, incontinence, hematuria, urinary retention. MUSCULOSKELETAL: denies weakness, joint pain, or bony pain SKIN: Denies rash, skin lesions, or other NEUROLOGIC: Denies weakness, headache, numbness, change in speech, confusion, se izures, incoordination. PSYCHIATRIC: No concerning psychosocial issues. 12 point review of systems is negative except for those stated above Patient History Medical History (Updated 01/04/21 @ 01:14 by Chandu Reed DO) Healthy adult Surgical History No pertinent past surgical history Family History Mother No problems noted. Father No problems noted. Grandmother No problems noted. Grandfather No problems noted. Grandmother No problems noted. Grandfather No problems noted. Brother No problems noted. Sister No problems noted. 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 Well-developed patient, in mild distress. tearful and anxious HEAD: Atraumatic. Normocephalic. EYES: Pupils equal round and reactive. Extraocular motions intact. No scleral icterus. No injection or drainage. ENT: Nose without bleeding, purulent drainage. Throat without erythema, tonsillar hypertrophy or exudate. Airway patent. NECK: Trachea midline. Non tender CARDIOVASCULAR: Regular rate and rhythm without murmurs, gallops, or rubs. RESPIRATORY: Clear to auscultation. Breath sounds equal bilaterally. No wheezes, rales, or rhonchi. GASTROINTESTINAL: Abdomen soft, non-tender, gravid above the umbilicus EXTREMITIES: No edema or joint tenderness. BACK: Nontender without deformity or crepitance. No flank tenderness. NEURO: AOx3. SKIN: No rash or erythema of visible areas Initial Vital Signs Initial Vital Signs: Vital Signs Temperature 98.1 F 01/03/21 22:56 Pulse Rate 96 H 01/03/21 22:56 Respiratory Rate 14 01/03/21 22:56 Blood Pressure 111/68 01/03/21 22:56 Pulse Oximetry 100 01/03/21 22:56 Course Orders Ordered: ED Orders 01/03/21 22:58 EKG-12 Lead Stat 01/03/21 23:15 COVID19 - ADMIT (BRIDAL GOWN FITTER swab/PCR) Stat 01/03/21 23:26 Urine Microscopic Stat 01/03/21 23:30 Complete Blood Count AUTO DIFF Stat Comprehensive Metabolic Panel Stat Magnesium Stat POTASSIUM CHLORIDE IN WATER (Potassium Cl 10 Meq/100 Ml Bridgett) 10 meq in 100 mls @ 100 mls/hr IV Q1H KELLY Stop: 01/04/21 04:14 Last Admin: 01/04/21 00:28 Dose: 100 mls/hr Documented by: LASHELL Ondansetron HCl (Ondansetron 4 Mg/2 Ml Inj) 4 mg IV Q4HR PRN PRN Reason: Nausea And Vomiting Discontinued Medications Sodium Chloride (Normal Saline 0.9%) 1,000 mls @ 1,000 mls/hr IV BOLUS ONE Stop: 01/03/21 23:56 Last Infusion: 01/04/21 00:26 Dose: 0 mls/hr Documented by: Admin: 01/03/21 23:08 Dose: 1,000 mls/hr Documented by: LASHELL Acetaminophen (Ofirmev) 1,000 mg in 100 mls @ 400 mls/hr IV NOW ONE Stop: 01/03/21 23:15 Last Infusion: 01/03/21 23:57 Dose: 0 mls/hr Documented by: Admin: 01/03/21 23:35 Dose: 400 mls/hr Documented by: LASHELL Metoclopramide HCl (Metoclopramide 10 Mg/2 Ml Inj) 10 mg IV NOW ONE Stop: 01/03/21 23:02 Last Admin: 01/03/21 23:08 Dose: 10 mg Documented by: LASHELL Potassium Chloride (Potassium Chloride 20 Meq/15 Ml Udc) 40 meq PO NOW ONE Stop: 01/04/21 01:02 Last Admin: 01/04/21 01:14 Dose: 40 meq Documented by: KENNY Reevaluation(s) Reevaluation #1: Patient has been seen and evaluated by Labor and delivery, they have performed exam and have no decelerations or significant findings. Reevaluation #2: Patient feeling much better after fluids and potassium. She is awake, alert and oriented and free of complaint. Vital Signs Vital signs: Vital Signs - 8 hr 01/03/21 22:56 01/03/21 23:00 01/03/21 23:35 Temperature 98.1 F Pulse Rate 96 H 87 76 Pulse Rate [Orthostatic Lying] Pulse Rate [Orthostatic Sitting] Pulse Rate [Orthostatic Standing] Respiratory Rate 14 18 20 Blood Pressure 111/68 115/67 99/61 Blood Pressure [Orthostatic Lying] Blood Pressure [Orthostatic Sitting] Blood Pressure [Orthostatic Standing] Pulse Oximetry 100 99 98 01/03/21 23:57 01/04/21 00:01 01/04/21 00:12 Temperature Pulse Rate 83 82 82 Pulse Rate [Orthostatic Lying] Pulse Rate [Orthostatic Sitting] Pulse Rate [Orthostatic Standing] Respiratory Rate 23 17 20 Blood Pressure 102/56 L 102/56 L Blood Pressure [Orthostatic Lying] Blood Pressure [Orthostatic Sitting] Blood Pressure [Orthostatic Standing] Pulse Oximetry 99 99 100 01/04/21 00:30 01/04/21 01:19 Temperature Pulse Rate 78 Pulse Rate [Orthostatic Lying] 91 H Pulse Rate [Orthostatic Sitting] 94 H Pulse Rate [Orthostatic Standing] 98 H Respiratory Rate 18 Blood Pressure 104/57 L Blood Pressure [Orthostatic Lying] 108/70 Blood Pressure [Orthostatic Sitting] 117/62 Blood Pressure [Orthostatic Standing] 113/72 Pulse Oximetry 99 MDM - Syncope Lab Data Result diagrams: 01/03/21 23:30 01/03/21 23:30 Labs: Lab Results 01/03/21 01/03/21 01/03/21 Range/Units 23:15 23:26 23:30 WBC 11.3 H (4.5-11.0) X10^3/uL RBC 4.09 (4.0-5.2) X10^6/uL Hgb 11.5 L (12.0-16.0) g/dL Hct 34.2 L (36-46) % MCV 83.8 (80-100) fL MCH 28.1 (26-34) PG MCHC 33.5 (30-36) % RDW 13.3 (11.6-14.8) % Plt Count 321 (150-400) X10^3/uL Neut % (Auto) 82.2 H (50-75) % Lymph % (Auto) 12.6 L (25-40) % [place] % (Auto) 4.9 (3-14) % Eos % (Auto) 0.0 L (2-4) % Baso % (Auto) 0.3 (0-2) % Neut # (Auto) 9300 H (2625-1355) /uL Lymph # (Auto) 1400 (6807-1459) /uL [place] # (Auto) 600 (0-900) /uL Eos # (Auto) 0 (0-450) /uL Baso # (Auto) 0 (0-100) /uL Sodium (137-145) mmol/L Potassium (3.4-5.1) mmol/L Chloride (98-107) mmol/L Carbon Dioxide (22-32) mmol/L BUN (7-17) mg/dL Creatinine (0.52-1.04) mg/dL Estimated GFR (>60) mL/min BUN/Creatinine Ratio (6-22) Glucose (70-100) mg/dL Calcium (8.4-10.2) mg/dL Magnesium (1.6-2.3) mg/dL Total Bilirubin (0.2-1.3) mg/dL AST (14-36) IU/L ALT (<35) IU/L Alkaline Phosphatase (38-126) U/L Total Protein (6.3-8.2) g/dL Albumin (3.5-5.0) g/dL Globulin (1.7-4.1) g/dL Albumin/Globulin Ratio (1.0-2.8) Urine RBC None seen (0-5/HPF) Urine WBC 0-1/hpf (0-5/HPF) Ur Squamous Epith Cells 1-5 /hpf (0-5/HPF) Urine Bacteria Few (2-10) H (None) Ur Culture Indicated? Cult not indicated SARS-CoV-2 (PCR) Negative (Negative) 01/03/21 Range/Units 23:30 WBC (4.5-11.0) X10^3/uL RBC (4.0-5.2) X10^6/uL Hgb (12.0-16.0) g/dL Hct (36-46) % MCV (80-100) fL MCH (26-34) PG MCHC (30-36) % RDW (11.6-14.8) % Plt Count (150-400) X10^3/uL Neut % (Auto) (50-75) % Lymph % (Auto) (25-40) % [place] % (Auto) (3-14) % Eos % (Auto) (2-4) % Baso % (Auto) (0-2) % Neut # (Auto) (7507-5536) /uL Lymph # (Auto) (8418-2857) /uL [place] # (Auto) (0-900) /uL Eos # (Auto) (0-450) /uL Baso # (Auto) (0-100) /uL Sodium 138 (137-145) mmol/L Potassium 3.0 L (3.4-5.1) mmol/L Chloride 110 H (98-107) mmol/L Carbon Dioxide 19 L (22-32) mmol/L BUN 9 (7-17) mg/dL Creatinine 0.34 L (0.52-1.04) mg/dL Estimated GFR > 60.0 (>60) mL/min BUN/Creatinine Ratio 26.5 H (6-22) Glucose 92 (70-100) mg/dL Calcium 8.0 L (8.4-10.2) mg/dL Magnesium 1.7 (1.6-2.3) mg/dL Total Bilirubin 0.3 (0.2-1.3) mg/dL AST 27 (14-36) IU/L ALT 20 (<35) IU/L Alkaline Phosphatase 199 H (38-126) U/L Total Protein 6.5 (6.3-8.2) g/dL Albumin 3.4 L (3.5-5.0) g/dL Globulin 3.1 (1.7-4.1) g/dL Albumin/Globulin Ratio 1.1 (1.0-2.8) Urine RBC (0-5/HPF) Urine WBC (0-5/HPF) Ur Squamous Epith Cells (0-5/HPF) Urine Bacteria (None) Ur Culture Indicated? SARS-CoV-2 (PCR) (Negative) Urine Dip Bedside Urine Glucose 1000 mg/dl Bedside Urine Bilirubin - Negative Bedside Urine Ketone + 15 Urine Specific [place] 1.025 Bedside Urine Occult Blood - Negative Bedside Urine pH 6 Bedside Urine Protein +/- 15 Bedside Urine Urobilinogen - Negative Bedside Urine Nitrite - Negative Bedside Urine Leukocytes - Negative Esterase MDM Narrative Medical decision making narrative: Patient has very reassuring response to therapies, labs and L and D exam. It seems likely that her symptoms today or multifactorial and includes some level of dehydration, low potassium and sign ificant amount of stress. Other diagnoses such as arrhythmia, pulmonary embolism and other considered but thought unlikely given history, physical exam, labs. Discharge Plan Departure Patient Disposition: Home Clinical Impression: Vasovagal syncope, Acute dehydration, Acute hypokalemia Instructions: DI for Syncope in Adults (Fainting) Activity Restrictions/Additional Instructions: *You have been diagnosed with [syncope, hypokalemia] *What to do: *Please continue to take your regular medications as directed. [ ] New medication prescriptions sent to your pharmacy: [ ] [ ] New medication written as a paper prescription [x ] No new medications given *Please follow up with your primary care provider in 2-3 days, call for an appointment. Let them know you were seen in the Emergency Department and that we ask that you be seen in follow up. We will electronically transmit a record of today's note if your PCP is in our system *If you do not have a primary care provider please contact the [facility] Resource line at [phone]. They will ask some questions about your medical history and help get you set up with a doctor in the community. *Return to Emergency Department if you should have any new, worsening or concerning symptoms, such as [fever greater than 101 F, shaking chills, worsening pain, persistent vomiting or other bothersome symptoms] Prescriptions: No Action PNV 119-iron fum-folic acid 29 mg iron- 1 mg tablet 1 tab PO DAILY Qty: 60 RF: 2
[2021-01-03 23:29] LABS: RBC Urine None Seen (0-5/HPF)
[2021-01-03 23:35] VITALS: BP 99/61; PULSE 76; RESP 20; O2SAT 98
[2021-01-03] MEDS: ACETAMINOPHEN IV 1,000 MG/100 ML VIAL 400 MG IV (23:35)
[2021-01-03 23:42] LABS: Add Manual Diff / Slide Review NO; Basophils Absolute Auto 0 /uL (0-100); Basophils Percent Auto 0.3 % (0-2); Eosinophils Absolute Auto 0 /uL (0-450); Hematocrit 34.2 % (36-46); Hemoglobin 11.5 g/dL (12.0-16.0); Lymphocytes Absolute Auto 1400 /uL (1100-4500); Lymphocytes Percent Auto 12.6 % (25-40); Mean Corpuscular HGB Conc 33.5 % (30-36); Mean Corpuscular Hemoglobin 28.1 PG (26-34); Mean Corpuscular Volume 83.8 fL (80-100); Monocytes Absolute Auto 600 /uL (0-900); Monocytes Percent Auto 4.9 % (3-14); Neutrophils Absolute Auto 9300 /uL (1500-7000); Neutrophils Percent Auto 82.2 % (50-75); Platelet Count 321 X10^3/uL (150-400); Red Blood Cell Count 4.09 X10^6/uL (4.0-5.2); Red Cell Distribution Width 13.3 % (11.6-14.8); White Blood Cell Count 11.3 X10^3/uL (4.5-11.0)
[2021-01-03 23:49] LABS: Bacteria Urine Few (2-10); Culture Indicated Urine Cult Not Indicated; Squamous Epithelial Cell Urine 1-5 /HPF (0-5/HPF); WBC Urine 0-1/HPF (0-5/HPF)
[2021-01-03 23:57] VITALS: BP 102/56; PULSE 83; RESP 23; O2SAT 99
[2021-01-03 23:57] LABS: Alanine Aminotransferase 20 IU/L (<35); Albumin 3.4 g/dL (3.5-5.0); Albumin Globulin Ratio 1.1 (1.0-2.8); Alkaline Phosphatase 199 U/L (38-126); Aspartate Aminotransferase 27 IU/L (14-36); BUN Creatinine Ratio 26.5 (6-22); Bilirubin Total 0.3 mg/dL (0.2-1.3); Blood Urea Nitrogen 9 mg/dL (7-17); Carbon Dioxide 19 mmol/L (22-32); Chloride 110 mmol/L (98-107); Estimated Glomerular Filt Rate > 60.0 mL/min (>60); Globulin 3.1 g/dL (1.7-4.1); Glucose 92 mg/dL (70-100); HEMOLYSIS < 15 (0-50); Magnesium 1.7 mg/dL (1.6-2.3); Sodium 138 mmol/L (137-145); Total Protein 6.5 g/dL (6.3-8.2)
[2021-01-04 00:01] VITALS: PULSE 82; RESP 17; O2SAT 99
--- NOTE | 2021-01-04 00:01 | PC.NURSE ---
L & D nurse at bedside monitoring baby.
[2021-01-04 00:12] VITALS: BP 102/56; PULSE 82; RESP 20; O2SAT 100
[2021-01-04 00:13] LABS: COVID19 - ADMIT (NP swab/PCR) Negative (Negative)
[2021-01-04] MEDS: POTASSIUM CHLORIDE IN WATER 10 MEQ/100 ML PIGGYBACK 100 MEQ IV (00:28)
[2021-01-04 00:30] VITALS: BP 104/57; PULSE 78; RESP 18; O2SAT 99
[2021-01-04] MEDS: POTASSIUM CHLORIDE 20 MEQ/15 ML UDC 40 MEQ PO (01:14)
[2021-01-04 01:19] VITALS: BP 108/70; BP 113/72; BP 117/62; PULSE 91; PULSE 94; PULSE 98
[2021-01-04 01:37] VITALS: BP 104/56; PULSE 71; RESP 16; O2SAT 98
[2021-01-04 02:12] VITALS: BP 98/56; PULSE 78; RESP 16; O2SAT 98
--- NOTE | 2021-01-22 12:43 | PC.NURSE ---
per RN IV infusion DC's when patient discharged home at 0200
== END 2021-01-04 02:13 | disposition home or self-care (01) ==
PROVIDERS: Emergency Provider Emergency Medicine
DX: O26.892 Other specified pregnancy related conditions, second trimester (principal); R55 Syncope and collapse; E86.0 Dehydration; E87.6 Hypokalemia; Z20.822 Contact with and (suspected) exposure to COVID-19; Z3A.24 24 weeks gestation of pregnancy
CPT/HCPCS: 36415; 80053; 81003; 81015; 83735; 85025; 87635; 93005; 93010; 96365; 96366; 96367; 96375; 99284; C9803; J0131; J2765

== ENCOUNTER → 2021-01-08 15:51 | Outpatient (CLI) | payer OTHER, MEDICAID, SELFPAY ==
[2021-01-08 18:31] LABS: GTT (PREG) 1 Hour PP 50gm Dose 101 mg/dL (76-139)
[2021-01-08 18:51] LABS: Hematocrit 34.5 % (36-46); Hemoglobin 11.8 g/dL (12.0-16.0)
== END ==
PROVIDERS: Referring Provider Obstetrics & Gynecology; Visit Provider Obstetrics & Gynecology
DX: Z34.02 Encounter for supervision of normal first pregnancy, second trimester (principal); Z3A.26 26 weeks gestation of pregnancy
CPT/HCPCS: 36415; 82950; 85014; 85018; 86850

== ENCOUNTER 2021-01-08 17:20 | Outpatient (CLI) | payer OTHER, MEDICAID, SELFPAY ==
[2021-01-08 18:55] LABS: RBC Urine None Seen (0-5/HPF)
[2021-01-08 18:56] LABS: Bilirubin Urine UA NEGATIVE (NEGATIVE); Color Urine UA YELLOW; Glucose Urine UA 2+ g/dL (Negative); Ketones Urine UA NEGATIVE (NEGATIVE); Leukocyte Esterase Urine UA TRACE (NEGATIVE); Nitrite Urine UA NEGATIVE (Negative); Occult Blood Urine UA NEGATIVE (Negative); Protein Urine UA NEGATIVE (Negative); Specific Gravity Urine UA <=1.005 (1.000-1.035); Urobilinogen Urine UA 0.2 E.U./dL (0.2)
[2021-01-08 19:02] LABS: Appearance Urine UA Slightly Cloudy
[2021-01-08 19:03] LABS: Amorphous Sediment Urine 1+; Bacteria Urine Moderate (10-30); Squamous Epithelial Cell Urine 5-10 /HPF (0-5/HPF); WBC Urine 1-5/HPF (0-5/HPF)
[2021-01-08 19:04] LABS: Culture Indicated Urine Specimen Cultured
== END 2021-01-08 17:45 | disposition home or self-care (01) ==
LOC: OB 01-15 07:47
PROVIDERS: Referring Provider Obstetrics & Gynecology; Visit Provider Obstetrics & Gynecology
DX: O26.892 Other specified pregnancy related conditions, second trimester (principal); R10.30 Lower abdominal pain, unspecified; Z3A.24 24 weeks gestation of pregnancy
CPT/HCPCS: 36415; 59025; 59050; 81001; 82950; 85014; 85018; 86850; 87086; G0378; G0379

== ENCOUNTER 2021-01-20 23:34 | Outpatient (CLI) | payer OTHER, MEDICAID, SELFPAY ==
--- NOTE | 2021-01-21 00:55 | P.TNLD_ITS ---
Visit Information Visit Information Date of evaluation: 01/21/21 Primary OB Provider: Ifeoma Braswell On-call OB Provider: Fadi Escobedo Reason for Evaluation: Yes other Comments/Additional reasons for admission: ED clearance. at 26 week EGJames presents from ED for OB clearance after presenting there complaining of vague upper abdominal pains. she states her baby is extremely active, she is not having any contractions, and she also denies any bleeding, leakage of fluid per vagina, or change in vaginal discharge. Vital Signs Vital Signs: Se OBIX flow sheet [facility] Medical History Healthy adult Surgical History No pertinent past surgical history Family History Mother No problems noted. Father No problems noted. Grandmother No problems noted. Grandfather No problems noted. Grandmother No problems noted. Grandfather No problems noted. Brother No problems noted. Sister No problems noted. 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 feliciano/yazidism: Adventism special feliciano needs: No seatbelt use: always helmet use: Yes Smoking Status: Never smoker second hand exposure: No alcohol intake: never substance use type: does not use and marijuana (stopoped long ago : not while ) during the past year weight has: remained stable well-balanced diet: daily or most days daily servings fruits/ve-4 caffeine: Yes eating out: 1-3 times/week Review of Systems Review of Systems ROS: Yes All systems reviewed with the patient and are negative except as otherwise documented Evaluation Evaluation Baseline heart rate: 155 Variability: Average (6-10) monitor accelerations: Present Monitor Decelerations: Absent Category of Tracing: Reactive Status: Category l Comments: Patient released for ED evaluation following OB clearance with no contractions, uterine pain, bleeding, leakage of fluid per vagina, or change in vaginal discharge.
[2021-01-21 01:15] LABS: RBC Urine None Seen (0-5/HPF); WBC Urine None Seen (0-5/HPF)
[2021-01-21 01:18] LABS: Appearance Urine UA CLEAR; Bilirubin Urine UA NEGATIVE (NEGATIVE); Color Urine UA YELLOW; Glucose Urine UA 2+ g/dL (Negative); Ketones Urine UA NEGATIVE (NEGATIVE); Leukocyte Esterase Urine UA NEGATIVE (NEGATIVE); Nitrite Urine UA NEGATIVE (Negative); Occult Blood Urine UA NEGATIVE (Negative); Protein Urine UA TRACE (Negative); Specific Gravity Urine UA 1.025 (1.000-1.035); Urobilinogen Urine UA 0.2 E.U./dL (0.2)
[2021-01-21 01:44] LABS: Squamous Epithelial Cell Urine 1-5 /HPF (0-5/HPF)
[2021-01-21 01:45] LABS: Bacteria Urine Occasional (0-1); Culture Indicated Urine Cult Not Indicated
== END 2021-01-21 01:32 | disposition home or self-care (01) ==
LOC: OB 01-22 06:57
PROVIDERS: Referring Provider Obstetrics & Gynecology; Visit Provider Obstetrics & Gynecology
DX: O26.892 Other specified pregnancy related conditions, second trimester (principal); R10.10 Upper abdominal pain, unspecified; Z3A.26 26 weeks gestation of pregnancy
CPT/HCPCS: 59025; 81001; G0378; G0379

== ENCOUNTER 2021-01-30 21:32 | Emergency (ER) | payer OTHER, MEDICAID, SELFPAY ==
[2021-01-30 21:43] VITALS: BP 128/74; PULSE 108; RESP 15; TEMP 36.8; O2SAT 98; BMI 22.9
--- NOTE | 2021-01-30 21:43 | ED.URI ---
HPI - URI/Sore Throat General Chief Complaint: Upper Respiratory Symptoms Stated Complaint: cold symptoms, sore throat Time Seen by Provider: 01/30/21 21:37 History of Present Illness HPI Narrative: 20-year-old female nonsmoker is currently at 26 weeks. She presents with significant other and a chief complaint of runny nose, sneezing, sore throat and hacking cough for the past day or 2. She has no measured fever but states she has felt hot. She denies any chest pain, nausea or vomiting. She denies dysuria, frequency or urgency. She denies vaginal bleeding or leakage of fluid. She had spoken with her social work administrator who recommended taking Claritin without relief Related Data Previous Rx's Medication Instructions Recorded vitamins no.119-iron 1 tab PO DAILY #60 tab 08/29/20 fumarate 29 mg-folic acid 1 mg tablet Allergies Allergy/AdvReac Type Severity Reaction Status Date / Time No Known Drug Allergies Allergy Verified 01/08/21 13:50 Review of Systems Review of Systems Narrative: GENERAL: See HPI HEENT: See HPI RESPIRATORY: See HPI CARDIOVASCULAR: Denies chest pain, palpitations, orthopnea, edema, GASTROINTESTINAL: Denies nausea, vomiting, abdominal pain, diarrhea, constipation, melena. : Denies dysuria, frequency, incontinence, hematuria, urinary retention. MUSCULOSKELETAL: denies weakness, joint pain, or bony pain SKIN: Denies rash, skin lesions, or other NEUROLOGIC: Denies weakness, headache, numbness, change in speech, confusion, seizures, incoordination. PSYCHIATRIC: No concerning psychosocial issues. 12 point review of systems is negative except for those stated above Patient History Medical History (Updated 01/30/21 @ 23:03 by Chandu Reed DO) Healthy adult Surgical History No pertinent past surgical history Family History Mother No problems noted. Father No problems noted. Grandmother No problems noted. Grandfather No problems noted. Grandmother No problems noted. Grandfather No problems noted. Brother No problems noted. Sister No problems noted. 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 Well-developed patient, in mild distress. HEAD: Atraumatic. Normocephalic. EYES: Pupils equal round and reactive. Extraocular motions intact. No scleral icterus. No injection or drainage. ENT: Clear nasal drainage, clear posterior pharyngeal drainage. Throat without erythema, tonsillar hypertrophy or exudate. Airway patent. NECK: Trachea midline. Non tender CARDIOVASCULAR: Regular rate and rhythm without murmurs, gallops, or rubs. RESPIRATORY: Clear to auscultation. Breath sounds equal bilaterally. No wheezes, rales, or rhonchi. GASTROINTESTINAL: Abdomen soft, non-tender, nondistended. EXTREMITIES: No edema or joint tenderness. BACK: Nontender without deformity or crepitance. No flank tenderness. NEURO: AOx3. SKIN: No rash or erythema of visible areas Initial Vital Signs Initial Vital Signs: Vital Signs Temperature 98.3 F 01/30/21 21:43 Pulse Rate 108 H 01/30/21 21:43 Respiratory Rate 15 01/30/21 21:43 Blood Pressure 128/74 01/30/21 21:43 Pulse Oximetry 98 01/30/21 21:43 Course Orders Ordered: ED Orders 01/30/21 21:50 COVID19 -Nasal swab/Pre-Proc Stat Vital Signs Vital signs: Vital Signs - 8 hr 01/30/21 21:43 01/30/21 23:08 Temperature 98.3 F 98.5 F Pulse Rate 108 H 104 H Respiratory Rate 15 16 Blood Pressure 128/74 115/77 Pulse Oximetry 98 98 MDM - URI/Sore Throat Lab Data Labs: Lab Results 01/30/21 Range/Units 21:50 SARS-CoV-2 (PCR) Negative (Negative) Point of Care Testing Rapid Strep A Negative Urine Dip Bedside Urine Glucose 500 mg/dl Bedside Urine Bilirubin - Negative Bedside Urine Ketone - Negative Urine Specific [place] 1.020 Bedside Urine Occult Blood - Negative Bedside Urine pH 6 Bedside Urine Protein - Negative Bedside Urine Urobilinogen - Negative Bedside Urine Nitrite - Negative Bedside Urine Leukocytes - Negative Esterase Discharge Plan Departure Patient Disposition: Home Clinical Impression: Upper respiratory infection Qualifiers: URI type: unspecified viral URI Qualified Code(s): J06.9 - Acute upper respiratory infection, unspecified Instructions: Can COVID-19 be prevented? Activity Restrictions/Additional Instructions: *You have been diagnosed with [multiple symptoms likely related to a viral upper respiratory infection. Your strep test and COVID test were negative] *What to do: *Please continue to take your regular medications as directed. * as we discussed please consider continuing [id number] antihistamines such as Claritin to dry the secretions which are likely contributing to the bulk of your symptoms *Please follow up with your primary care provider in 2-3 days, call for an appointment. Let them know you were seen in the Emergency Department and that we ask that you be seen in follow up. We will electronically transmit a record of today's note if your PCP is in our system *If you do not have a primary care provider please contact the [facility] Resource line at [phone]. They will ask some questions about your medical history and help get you set up with a doctor in the community. *Return to Emergency Department if you should have any new, worsening or concerning symptoms, such as [fever greater than 101 F, shaking chills, worsening pain, persistent vomiting or other bothersome symptoms] Prescriptions: No Action PNV 119-iron fum-folic acid 29 mg iron- 1 mg tablet 1 tab PO DAILY Qty: 60 RF: 2
[2021-01-30 22:48] LABS: COVID19 -Nasal RAPID Negative (Negative)
[2021-01-30 23:08] VITALS: BP 115/77; PULSE 104; RESP 16; TEMP 36.9; O2SAT 98
== END 2021-01-30 23:09 | disposition home or self-care (01) ==
PROVIDERS: Emergency Provider Emergency Medicine
DX: J06.9 Acute upper respiratory infection, unspecified (principal); Z20.822 Contact with and (suspected) exposure to COVID-19
CPT/HCPCS: 81003; 87635; 87880; 99282; C9803

== ENCOUNTER 2021-02-08 23:34 | Emergency (ER) | payer OTHER, MEDICAID, SELFPAY ==
[2021-02-08 23:47] VITALS: PULSE 94; RESP 20; O2SAT 98
[2021-02-08 23:53] VITALS: BP 127/77; PULSE 101; RESP 20; TEMP 37.4; O2SAT 100
[2021-02-09] VITALS: PULSE 100; RESP 16; O2SAT 98
[2021-02-09 00:30] VITALS: PULSE 98; RESP 17; O2SAT 97
--- NOTE | 2021-02-09 00:55 | DI.US.S_ITS ---
PROCEDURE: US OB LIMITED INDICATIONS: SPOTTING AND CRAMPING OUTSIDE/PRIOR DATING DATA: Last menstrual period (LMP): 07/11/2020 LMP-based estimated date of delivery (DONNA): 04/17/2021 First dating scan (date and location): 08/29/2020 Estimated date of delivery (DONNA) from first dating scan: 04/23/2021 TECHNIQUE: Real-time scanning was performed of the fetus, with image documentation. Endovaginal scanning: Performed for additional visualization COMPARISON: [facility], US OB >= 14 WEEKS FETUS, 12/12/2020, 9:58. [facility], US OB >= 14 WEEKS FETUS, 11/14/2020, 13:43. [facility], US OB <= 14 WEEKS FETUS, 10/17/2020, 12:35. [facility], US OB <= 14 WEEKS FETUS, 09/19/2020, 9:07. FINDINGS: A single living intrauterine gestation is present. Presentation: Vertex. Placenta: Placental position is anterior/right , without previa. No findings of placental abruption are seen. Amniotic fluid index: 6.7 cm, normal range is 5-24 cm. heart rate: 157 beats per minute. Maternal cervical canal: 2.5 cm long. Normal lower limit is 2.5 cm. Estimated gestational age from initial scan: 29 weeks 4 days. IMPRESSION: The cervix measures at the lower limits of normal at 2.5 cm in length. No findings of placental abruption can be seen. A single live intrauterine is seen. Note: No significant discrepancy from the preliminary report. Dictated by: Jeramie Dunn M.D. on 02/09/2021 at 8:46 Approved by: Jeramie Dunn M.D. on 02/09/2021 at 8:48
--- NOTE | 2021-02-09 00:57 | ED_ITS ---
HPI - General Chief complaint: Syncope Stated complaint: , passed out in car Time Seen by Provider: 02/09/21 00:47 Source: family Mode of arrival: Ambulatory Limitations: altered mental status and other History of Present Illness HPI Narrative: Patient is a 20-year-old female currently 29 weeks presenting with variety of complaints this evening. She said that she had some mild spotting pink on the toilet paper. She also had some mild abdominal cramping no significant pain. As her fiance was driving her to the emergency department he was almost here when she became unresponsive. He says that she was unresponsive for about 3 minutes. She did require assistance out of the ve hicle but quickly responded to sternal rub. She is no longer having abdominal pain. She remains alert and responsive at numbness tingling or weakness. S No significant vaginal bleeding. No complications with this Related Data Previous Rx's Medication Instructions Recorded vitamins no.119-iron 1 tab PO DAILY #60 tab 08/29/20 fumarate 29 mg-folic acid 1 mg tablet Allergies Allergy/AdvReac Type Severity Reaction Status Date / Time No Known Drug Allergies Allergy Verified 01/08/21 13:50 Review of Systems Review of Systems ROS Unobtainable: All systems reviewed & are unremarkable except as noted in HPI and below Constitutional Constitutional: Denies chills, Denies fever(s) and Denies headache(s) Eyes Eyes: Denies blurry vision ENT Ears, Nose, Mouth, and Throat: Denies vertigo, Denies dizziness and Denies headache(s) Cardiovascular Cardiovascular: Denies chest pain, Reports syncope, Denies irregular heart rhythm and Reports lightheadedness Gastrointestinal Gastrointestinal: Reports abdominal pain (Cramping), Denies diarrhea and Reports nausea Genitourinary Genitourinary: Reports as per HPI Musculoskeletal Musculoskeletal: Denies back pain Neurologic Neurologic: Denies vertigo, Denies dizziness, Reports syncope and Denies headache(s) PMFSH - Past Medical History Medical history: Reports no medical history Exam Initial Vital Signs Initial Vital Signs: Vital Signs Pulse Rate 94 H 02/08/21 23:47 Respiratory Rate 20 02/08/21 23:47 Pulse Oximetry 98 02/08/21 23:47 GENERAL: Alert well-appearing 20-year-old female HEENT: Head atraumatic,EOMI, pupils reactive, face symmetric, moist mucous membranes CARDIOVASCULAR: Regular rate and rhythm without murmurs, rubs or gallops. RESPIRATORY: Breath sounds equal bilaterally, no wheezes rales or rhonchi. ABDOMEN: Soft, gravid nontender EXTREMITIES: Normal range of motion, no clubbing or edema. Neurovascularly intact NEUROLOGICAL: Alert and oriented x4. No gross focal deficits. Director Of Cardiology Service Line strength equal bilaterally SKIN: Warm, dry, no laceration, no petechiae, no rashes or lesions. Course Orders Ordered: ED Orders 02/09/21 EKG-12 Lead Routine 02/09/21 00:55 US OB limited Stat Complete Blood Count AUTO DIFF Stat Comprehensive Metabolic Panel Stat Discontinued Medications Sodium Chloride (Normal Saline 0.9%) 1,000 mls @ 1,000 mls/hr IV BOLUS ONE Stop: 02/09/21 01:54 Last Infusion: 02/09/21 02:24 Dose: 0 mls/hr Documented by: Admin: 02/09/21 01:02 Dose: 1,000 mls/hr Documented by: CHERYL Potassium Chloride (Potassium Chloride 20 Meq Tab) 40 meq PO NOW ONE Stop: 02/09/21 03:41 Last Admin: 02/09/21 03:52 Dose: 40 meq Documented by: CHERYL Vital Signs Vital signs: Vital Signs - 8 hr 02/08/21 23:47 02/08/21 23:53 02/09/21 00:00 Temperature 99.3 F Pulse Rate 94 H 101 H 100 H Respiratory Rate 20 20 16 Blood Pressure 127/77 Pulse Oximetry 98 100 98 02/09/21 00:30 02/09/21 01:00 02/09/21 01:30 Temperature Pulse Rate 98 H 89 86 Respiratory Rate 17 16 15 Blood Pressure Pulse Oximetry 97 96 98 02/09/21 03:51 Temperature Pulse Rate 101 H Respiratory Rate 16 Blood Pressure 123/86 Pulse Oximetry 99 MDM - OB/Uterine Contractions Lab Data Result diagrams: 02/08/21 23:50 02/08/21 23:50 Labs: Lab Results 02/08/21 02/08/21 Range/Units 23:50 23:50 WBC 10.3 (4.5-11.0) X10^3/uL RBC 4.52 (4.0-5.2) X10^6/uL Hgb 12.6 (12.0-16.0) g/dL Hct 37.4 (36-46) % MCV 82.8 (80-100) fL MCH 27.9 (26-34) PG MCHC 33.8 (30-36) % RDW 12.8 (11.6-14.8) % Plt Count 351 (150-400) X10^3/uL Neut % (Auto) 76.9 H (50-75) % Lymph % (Auto) 15.8 L (25-40) % Mccreary % (Auto) 6.5 (3-14) % Eos % (Auto) 0.1 L (2-4) % Baso % (Auto) 0.7 (0-2) % Neut # (Auto) 7900 H (3685-8694) /uL Lymph # (Auto) 1600 (1982-5759) /uL Mccreary # (Auto) 700 (0-900) /uL Eos # (Auto) 0 (0-450) /uL Baso # (Auto) 100 (0-100) /uL Sodium 136 L (137-145) mmol/L Potassium 3.2 L (3.4-5.1) mmol/L Chloride 106 (98-107) mmol/L Carbon Dioxide 21 L (22-32) mmol/L BUN 9 (7-17) mg/dL Creatinine 0.43 L (0.52-1.04) mg/dL Estimated GFR > 60.0 (>60) mL/min BUN/Creatinine Ratio 20.9 (6-22) Glucose 113 H (70-100) mg/dL Calcium 8.7 (8.4-10.2) mg/dL Total Bilirubin 0.2 (0.2-1.3) mg/dL AST 28 (14-36) IU/L ALT 21 (<35) IU/L Alkaline Phosphatase 410 H (38-126) U/L Total Protein 7.2 (6.3-8.2) g/dL Albumin 3.7 (3.5-5.0) g/dL Globulin 3.5 (1.7-4.1) g/dL Albumin/Globulin Ratio 1.1 (1.0-2.8) Urine Dip Bedside Urine Glucose Negative Bedside Urine Bilirubin - Negative Bedside Urine Ketone - Negative Urine Specific [place]ward 1.020 Bedside Urine Occult Blood - Negative Bedside Urine pH 6 Bedside Urine Protein - Negative Bedside Urine Urobilinogen - Negative Bedside Urine Nitrite - Negative Bedside Urine Leukocytes - Negative Esterase Imaging Data US - OB: Radiologist's Impression: Single living intrauterine gestation estimated at 29 weeks and 4 days by today's ultrasound criteria. heart rate 157. The closed cervical length is 2.5 cm ECG Data Interpretation: Normal sinus rhythm rate 90 p.r. interval 134 QRS 70 QTC 403 some artifact noted no significant ST change similar to previous EKG MDM Narrative Medical decision making narrative: Patient has no focal deficits likely a brief fainting episode. However abdominal cramping with some light spotting differential diagnosis includes placental abruption and placenta previa although no prior ultrasounds have shown placenta previa. She is certainly not in significant pain and vitals are stable. Ultrasound does actually show shortened cervical length of 2.5 cm put an otherwise healthy 29 week fetus. Patient remained stable blood work does show hypokalemia mild at 3.2. Attempted to replace it however she spit out the potassium pill. Patient is no longer having significant abdominal cramping no vaginal bleeding in the ED. sleeping. Case discussed with OBGYN at this time needs close follow-up with her primary Ob. Patient will go to [facility] for further monitoring 0-Dr. Escobedo cervix 2.5cm need close follow up with Dr. Braswell. Discharge Plan Departure Patient Disposition: Home Clinical Impression: Fainting, Cervix, short (affecting ), Acute hypokalemia Instructions: Fainting Activity Restrictions/Additional Instructions: You likely had a brief fainting episode today. It is unclear what caused this, however her potassium was found to be slightly on the low end, you were given potassium pill in the emergency department. You were also found to have of shorter cervix which could potentially cause pre term labor. Is extremely important that you follow-up with OB. Fortunately appointment with her in 2 days. Follow-up with Dr. Braswell as scheduled on Thursday GO DIRECTLY TO [facility] FOR FURTHER MONITORING, once you are released from them, you are free to go home Return to emergency department if you should have any you worsening abdominal pain pain, vaginal bleeding, fainting or any new or worsening symptoms Prescriptions: No Action PNV 119-iron fum-folic acid 29 mg iron- 1 mg tablet 1 tab PO DAILY Qty: 60 RF: 2 Referrals: Ifeoma Braswell MD [Physician] -
[2021-02-09 01:00] VITALS: PULSE 89; RESP 16; O2SAT 96
[2021-02-09] MEDS: SODIUM CHLORIDE 0.9% 1,000 ML 1000 ML IV (01:02)
[2021-02-09 01:03] LABS: Add Manual Diff / Slide Review NO; Basophils Absolute Auto 100 /uL (0-100); Basophils Percent Auto 0.7 % (0-2); Eosinophils Absolute Auto 0 /uL (0-450); Eosinophils Percent Auto 0.1 % (2-4); Hematocrit 37.4 % (36-46); Hemoglobin 12.6 g/dL (12.0-16.0); Lymphocytes Absolute Auto 1600 /uL (1100-4500); Lymphocytes Percent Auto 15.8 % (25-40); Mean Corpuscular HGB Conc 33.8 % (30-36); Mean Corpuscular Hemoglobin 27.9 PG (26-34); Mean Corpuscular Volume 82.8 fL (80-100); Monocytes Absolute Auto 700 /uL (0-900); Monocytes Percent Auto 6.5 % (3-14); Neutrophils Absolute Auto 7900 /uL (1500-7000); Neutrophils Percent Auto 76.9 % (50-75); Platelet Count 351 X10^3/uL (150-400); Red Blood Cell Count 4.52 X10^6/uL (4.0-5.2); Red Cell Distribution Width 12.8 % (11.6-14.8); White Blood Cell Count 10.3 X10^3/uL (4.5-11.0)
[2021-02-09 01:19] LABS: Alanine Aminotransferase 21 IU/L (<35); Albumin 3.7 g/dL (3.5-5.0); Albumin Globulin Ratio 1.1 (1.0-2.8); Alkaline Phosphatase 410 U/L (38-126); Aspartate Aminotransferase 28 IU/L (14-36); BUN Creatinine Ratio 20.9 (6-22); Bilirubin Total 0.2 mg/dL (0.2-1.3); Blood Urea Nitrogen 9 mg/dL (7-17); Calcium 8.7 mg/dL (8.4-10.2); Carbon Dioxide 21 mmol/L (22-32); Chloride 106 mmol/L (98-107); Estimated Glomerular Filt Rate > 60.0 mL/min (>60); Globulin 3.5 g/dL (1.7-4.1); Glucose 113 mg/dL (70-100); HEMOLYSIS < 15 (0-50); Potassium 3.2 mmol/L (3.4-5.1); Sodium 136 mmol/L (137-145); Total Protein 7.2 g/dL (6.3-8.2)
[2021-02-09 01:30] VITALS: PULSE 86; RESP 15; O2SAT 98
[2021-02-09 03:51] VITALS: BP 123/86; PULSE 101; RESP 16; O2SAT 99
[2021-02-09] MEDS: POTASSIUM CHLORIDE 20 MEQ TAB 40 MEQ PO (03:52)
== END 2021-02-09 04:05 | disposition home or self-care (01) ==
PROVIDERS: Emergency Provider Emergency Medicine
DX: O26.873 Cervical shortening, third trimester (principal); R10.9 Unspecified abdominal pain; R55 Syncope and collapse; E87.6 Hypokalemia; Z3A.29 29 weeks gestation of pregnancy
CPT/HCPCS: 36415; 76815; 76817; 80053; 81003; 85025; 93005; 93010; 96360; 99284

== ENCOUNTER 2021-02-09 04:06 | Outpatient (CLI) | payer OTHER, MEDICAID, SELFPAY ==
--- NOTE | 2021-02-09 05:10 | P.TNLD_ITS ---
Visit Information Visit Information Date of evaluation: 02/09/21 Primary OB Provider: Ifeoma Braswell Reason for Evaluation: Yes non-stress test non-stress test reason: other (back pain) Comments/Additional reasons for admission: Patient was evaluated in the ER for a syncopal episode, cleared and sent to the center for monitoring. She was already on her way to the ER with her fiance for some pink discharge, slight cramping and back pain when she passed out the car. Workup in the ER was reassuring and syncopal episode felt to be vasovagal. Labs were significant for mild hypokalemia. Urine was normal without signs of infection. Ultrasound was completed and significant for cervical length of 2.5 cm with normal placental location. Once in the center patient denied abdominal pain but still had some low back pain. Denied contractions and reported good movement. Vital Signs Vital Signs: T 36.6 BP 102/65 P 76 PFSH Medical History Healthy adult Surgical History No pertinent past surgical history Family History Mother No problems noted. Father No problems noted. Grandmother No problems noted. Grandfather No problems noted. Grandmother No problems noted. Grandfather No problems noted. Brother No problems noted. Sister No problems noted. 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 feliciano/jehovah's witness: Holiness special feliciano needs: No seatbelt use: always helmet use: Yes Smoking Status: Never smoker second hand exposure: No alcohol intake: never substance use type: does not use and marijuana (stopoped long ago : not while ) during the past year weight has: remained stable well-balanced diet: daily or most days daily servings fruits/ve-4 caffeine: Yes eating out: 1-3 times/week Evaluation Evaluation Baseline heart rate: 130 Variability: Moderate (11-25) monitor accelerations: Present (age appropriate) Monitor Decelerations: Absent Category of Tracing: Reactive Diagnosis, Plan/Disposition Final Diagnosis (1) 29 weeks gestation of : Status: Acute (2) Back pain affecting : Status: Acute (3) Short cervix: Status: Acute Plan/Disposition Plan: 20-year-old at 29 weeks gestation with complaints of pink discharge with wiping, low back pain and syncopal episode prior to arrival. Reviewed ER notes. Potassium was slightly low however patient was unable to take potassium replacement. Ultrasound was significant for cervical length of 2.5 cm without placenta previa. In the center patient denied contractions and none were noted on the monitor. NST reactive. Urine in the ER was negative as well. She may take Tylenol for back pain if desired. Patient was advised to follow-up with her primary OB and has an appointment in 2 days. OB Disposition: home
== END 2021-02-09 05:30 | disposition home or self-care (01) ==
LOC: OB 02-11 13:04
PROVIDERS: Referring Provider Emergency Medicine; Visit Provider Obstetrics & Gynecology
DX: O26.893 Other specified pregnancy related conditions, third trimester (principal); M54.9 Dorsalgia, unspecified; O26.873 Cervical shortening, third trimester; R55 Syncope and collapse; Z3A.29 29 weeks gestation of pregnancy
CPT/HCPCS: 59025; G0378; G0379

== ENCOUNTER → 2021-02-11 14:48 | Outpatient (ROUT) | payer OTHER, MEDICAID, SELFPAY ==
[2021-02-11 15:22] LABS: Fetal Fibronectin Negative
== END ==
PROVIDERS: Visit Provider Obstetrics & Gynecology
DX: O47.00 False labor before 37 completed weeks of gestation, unspecified trimester (principal); Z3A.28 28 weeks gestation of pregnancy
CPT/HCPCS: 82731

== ENCOUNTER 2021-03-16 11:17 | Observation (INO) | payer OTHER, MEDICAID, SELFPAY ==
[2021-03-16 13:22] LABS: Appearance Urine UA SL CLOUDY; Bilirubin Urine UA NEGATIVE (NEGATIVE); Color Urine UA YELLOW; Glucose Urine UA TRACE g/dL (Negative); Ketones Urine UA NEGATIVE (NEGATIVE); Leukocyte Esterase Urine UA TRACE (NEGATIVE); Nitrite Urine UA NEGATIVE (Negative); Occult Blood Urine UA TRACE-INTACT (Negative); Protein Urine UA 3+ (Negative); Urobilinogen Urine UA 0.2 E.U./dL (0.2)
[2021-03-16 13:27] LABS: Add Manual Diff / Slide Review NO; Basophils Absolute Auto 100 /uL (0-100); Basophils Percent Auto 0.8 % (0-2); Eosinophils Absolute Auto 100 /uL (0-450); Eosinophils Percent Auto 0.6 % (2-4); Hematocrit 36.8 % (36-46); Hemoglobin 12.1 g/dL (12.0-16.0); Lymphocytes Absolute Auto 2400 /uL (1100-4500); Mean Corpuscular HGB Conc 32.8 % (30-36); Mean Corpuscular Hemoglobin 26.4 PG (26-34); Mean Corpuscular Volume 80.4 fL (80-100); Monocytes Absolute Auto 600 /uL (0-900); Monocytes Percent Auto 6.2 % (3-14); Neutrophils Absolute Auto 7100 /uL (1500-7000); Neutrophils Percent Auto 69.4 % (50-75); Platelet Count 207 X10^3/uL (150-400); Red Blood Cell Count 4.57 X10^6/uL (4.0-5.2); Red Cell Distribution Width 13.8 % (11.6-14.8); White Blood Cell Count 10.3 X10^3/uL (4.5-11.0)
[2021-03-16 13:38] LABS: Bacteria Urine Few (2-10); Culture Indicated Urine Specimen Cultured; Hyaline Casts Urine 1-5/LPF; Mucus Urine 1+ (Negative); RBC Urine 0-1/HPF (0-5/HPF); Renal Epithelial Cells Urine 0-1/HPF (0-1/HPF); Squamous Epithelial Cell Urine 1-5 /HPF (0-5/HPF); Transitional Epi Cells Urine 5-10/HPF (0-5/HPF); WBC Urine 5-10/HPF (0-5/HPF)
[2021-03-16 13:38] LABS: Aspartate Aminotransferase 26 IU/L (14-36); BUN Creatinine Ratio 30.9 (6-22); Blood Urea Nitrogen 17 mg/dL (7-17); Estimated Glomerular Filt Rate > 60.0 mL/min (>60); Uric Acid 5.3 mg/dL (2.5-6.2)
[2021-03-16 13:40] LABS: Protein (Total) Urine Random 1014 mg/dL (0-12)
== END 2021-03-16 14:35 | disposition home or self-care (01) ==
PROVIDERS: Admitting Provider Obstetrics & Gynecology; Referring Provider Obstetrics & Gynecology; Visit Provider Obstetrics & Gynecology
DX: O47.03 False labor before 37 completed weeks of gestation, third trimester (principal); Z3A.34 34 weeks gestation of pregnancy
CPT/HCPCS: 36415; 59050; 81001; 84156; 84450; 84550; 85025; 87077; 87086; 87186; G0378; G0379

== ENCOUNTER 2021-03-18 15:12 | Outpatient (CLI) | payer OTHER, MEDICAID, SELFPAY ==
[2021-03-18] MEDS: ACETAMINOPHEN 325 MG TABLET 975 MG PO (16:32)
== END 2021-03-18 16:36 | disposition home or self-care (01) ==
LOC: LABOR 16:18 → OB 03-20 11:32
PROVIDERS: Referring Provider Obstetrics & Gynecology; Visit Provider Obstetrics & Gynecology
DX: O26.893 Other specified pregnancy related conditions, third trimester (principal); R51.9 Headache, unspecified; Z3A.34 34 weeks gestation of pregnancy
CPT/HCPCS: 59025; G0378; G0379

== ENCOUNTER 2021-03-20 09:41 | Inpatient (IN) | payer OTHER, MEDICAID, SELFPAY ==
--- NOTE | 2021-03-20 10:02 | DI.US.S_ITS ---
PROCEDURE: US OB >= 14 WEEKS FETUS INDICATIONS: GROWTH AND AMNIOTIC FLUID. OUTSIDE/PRIOR DATING DATA: Last menstrual period (LMP): 07/11/2020. LMP-based estimated date of delivery (DONNA): 04/17/2021. First dating scan (date and location): 08/29/2020 . Estimated date of delivery (DONNA) from first dating scan: 04/23/2021. TECHNIQUE: Real-time scanning was performed of the fetus, with image documentation and biometric measurements. Umbilical artery Doppler performed. Endovaginal scanning: Not performed. COMPARISON: [facility], , OB >= 14 WEEKS FETUS, 03/06/2021, 10:37. FINDINGS: General: A single living intrauterine gestation is present. Presentation: Vertex. Placenta: Placental position is anterior right, without previa. Largest pocket 3.7 cm. Amniotic fluid index: 5.6 cm, normal range is 5-24 cm. heart rate: 162 beats per minute. Maternal cervical canal: Not well seen. biometrics: Biparietal diameter: 8.26 cm, 33 weeks 2 days Head circumference: 30.02 cm, 33 weeks 2 days Abdominal circumference: 26.72 cm, 30 weeks 6 days Femur length: 6.03 cm, 31 weeks 3 days Estimated gestational age from initial scan: 35 weeks 1 day Composite gestational age from present scan: 32 weeks 2 days Estimated weight and percentile: 1764 g. Less than 1st percentile. Measurement variability for biometric dating: +/- 7 days from 14 weeks to 15 weeks 6 days gestation, +/- 10 days from 16 weeks to 21 weeks 6 days gestation, +/- 2 weeks from 22 weeks to 27 weeks 6 days gestation, +/- 3 weeks for 28 weeks gestation or later. weight reference: 4500 g or EFW >90/95% is considered macrosomia or large for gestational age. EFW <10% is small for gestational age. EFW 5% or less is considered intra-uterine growth restriction. Umbilical artery SD ratio: 2.4; 2.4; 2.7. There is preserved diastolic flow. IMPRESSION: 1. Carson living intrauterine at 32 weeks 2 days based on today's ultrasound. Estimated gestational age from the initial scan is 35 weeks 1 day. The estimated weight is 1764 g. This is less than the 1st percentile. This is concerning for intrauterine growth restriction. 2. Amniotic fluid is at the lower limits of normal. LEÓN 5.6. Largest pocket 3.7 cm. Placenta is within normal limits. 3. Umbilical artery Doppler is within normal limits. Dictated by: Junior Burleson M.D. on 03/20/2021 at 11:43 Approved by: Junior Burleson M.D. on 03/20/2021 at 11:52
[2021-03-20] MEDS: BETAMETHASONE 30 MG/5 ML MDV 12 MG IM (10:13)
[2021-03-20 10:43] LABS: Add Manual Diff / Slide Review NO; Basophils Absolute Auto 100 /uL (0-100); Basophils Percent Auto 1.5 % (0-2); Eosinophils Absolute Auto 0 /uL (0-450); Eosinophils Percent Auto 0.5 % (2-4); Hematocrit 36.5 % (36-46); Hemoglobin 12.1 g/dL (12.0-16.0); Lymphocytes Absolute Auto 2100 /uL (1100-4500); Lymphocytes Percent Auto 23.4 % (25-40); Mean Corpuscular HGB Conc 33.1 % (30-36); Mean Corpuscular Hemoglobin 26.9 PG (26-34); Mean Corpuscular Volume 81.2 fL (80-100); Monocytes Absolute Auto 800 /uL (0-900); Monocytes Percent Auto 8.5 % (3-14); Neutrophils Absolute Auto 5900 /uL (1500-7000); Neutrophils Percent Auto 66.1 % (50-75); Platelet Count 179 X10^3/uL (150-400); Red Cell Distribution Width 13.9 % (11.6-14.8); White Blood Cell Count 8.9 X10^3/uL (4.5-11.0)
[2021-03-20] MEDS: LACTATED RINGERS 1,000 ML 42 ML IV (10:46)
[2021-03-20] MEDS: MAGNESIUM SULFATE 4 GM/100 ML PIGGYBACK IV (10:47)
[2021-03-20] MEDS: MAGNESIUM SULFATE 20 GM/500 ML IV.SOLN IV (10:50)
[2021-03-20 11:01] LABS: Aspartate Aminotransferase 31 IU/L (14-36); BUN Creatinine Ratio 28.1 (6-22); Blood Urea Nitrogen 16 mg/dL (7-17); Estimated Glomerular Filt Rate > 60.0 mL/min (>60)
[2021-03-20 11:37] VITALS: BP 177/106
[2021-03-20 11:53] LABS: COVID19 -Nasal RAPID Negative (Negative)
--- NOTE | 2021-03-20 12:20 | PM.OBHP.1 ---
OB HPI Date/Time Date of admission: 03/20/21 Date Patient Seen: 03/20/21 Time Patient Seen: 12:24 History of Present Condition Chief complaint: nst : 1 Para: 0 Estimated Date of Delivery: 04/25/21 Estimated Gestational Age (weeks): 34+6 Narrative: Ami Small is a 20 year old female 1 para 0 at 34 and 6 seventh weeks gestation who presented for an OB visit today with elevated blood pressure in the 170s over 100s. She has had an intermittent headache over the last few days. No visual changes. No right upper quadrant pain. Good movement. No contractions. She was sent to the center for evaluation where she had a nonstress test which is reactive. Decreased ngat-pk-fins variability after magnesium sulfate started. Had a growth ultrasound which showed the baby SGA 32 weeks and 2 days. Less than the first percentile. 1700 g. LEÓN 5.6 cm. Normal dopplers. Partner Louis History of Present care: good care, initiated at week # (8), number of visits (8) and pounds weight gain (20) Dating criteria: LMP confirmed by 1st trimester US Ultrasounds: normal 1st trimester US and normal mid trimester US Obstetrical complications: preeclampsia and growth restriction Medical complications: none Preadmission Labs Blood type: O (+) positive -: Antibody screen: negative, GBS status: unknown, HBsAG: negative, HIV: negative and RPR/VDLR: negative -: Chlamydia screen: not detected and Gonorrhea screen: not detected -: Rubella: equivocal and Varicella: not immune HCT: 36.5 HCAB: negative PAP: Normal (09/09) Urine: Negative 1 hr GTT: 101 Evaluation Evaluation Baseline heart rate: 130 Variability: Average (6-10) monitor accelerations: Present Monitor Decelerations: Absent [facility] Medical History (Updated 03/16/21 @ 14:06 by Ifeoma Braswell MD) Healthy adult Surgical History No pertinent past surgical history Family History Mother No problems noted. Father No problems noted. Grandmother No problems noted. Grandfather No problems noted. Grandmother No problems noted. Grandfather No problems noted. Brother No problems noted. Sister No problems noted. 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 feliciano/gnosticism: Shinto special feliciano needs: No seatbelt use: always helmet use: Yes Smoking Status: Never smoker second hand exposure: No alcohol intake: never substance use type: does not use and marijuana during the past year weight has: remained stable well-balanced diet: daily or most days daily servings fruits/ve-4 caffeine: Yes eating out: 1-3 times/week Meds Home Medications and Allergies Home Medications Medication Instructions Recorded Confirmed Type vitamins no.119-iron 1 tab PO DAILY #60 tab 08/29/20 03/20/21 Rx fumarate 29 mg-folic acid 1 mg tablet Allergies Allergy/AdvReac Type Severity Reaction Status Date / Time No Known Drug Allergies Allergy Verified 03/20/21 09:02 Exam Vital Signs (past 8 hours): - 03/20/21 11:37 Blood Pressure 177/106 H Narrative Exam Narrative: Generally: Patient is sitting up in bed, in mild distress secondary to a headache after starting the magnesium sulfate Lungs: Clear to auscultation bilaterally Cardiovascular: Regular rate and rhythm Fundal height: 33 cm Extremities: 2+ DTRs, no clonus, trace edema Objective Labs Result Diagrams: 03/20/21 10:39 03/20/21 10:39 Labs: Laboratory Results - last 24 hr 03/20/21 03/20/21 03/20/21 10:39 10:39 10:39 WBC 8.9 RBC 4.50 Hgb 12.1 Hct 36.5 MCV 81.2 MCH 26.9 MCHC 33.1 RDW 13.9 Plt Count 179 Neut % (Auto) 66.1 Lymph % (Auto) 23.4 L [place] % (Auto) 8.5 Eos % (Auto) 0.5 L Baso % (Auto) 1.5 Neut # (Auto) 5900 Lymph # (Auto) 2100 [place]iba # (Auto) 800 Eos # (Auto) 0 Baso # (Auto) 100 BUN 16 Creatinine 0.57 Estimated GFR > 60.0 BUN/Creatinine Ratio 28.1 H Uric Acid 6.0 AST 31 SARS-CoV-2 (PCR) Blood Type O Positive Antibody Screen Negative 03/20/21 11:00 WBC RBC Hgb Hct MCV MCH MCHC RDW Plt Count Neut % (Auto) Lymph % (Auto) [place] % (Auto) Eos % (Auto) Baso % (Auto) Neut # (Auto) Lymph # (Auto) Ce[place] # (Auto) Eos # (Auto) Baso # (Auto) BUN Creatinine Estimated GFR BUN/Creatinine Ratio Uric Acid AST SARS-CoV-2 (PCR) Negative Blood Type Antibody Screen Assessment and Plan Assessment and Plan Assessment and Plan narrative: Assessment: 20-year-old 1 para 0 at 34 and 6 seventh weeks gestation with severe preeclampsia, growth restriction with the growth at less than the first percentile, and oligohydramnios Recent urinary tract infection with E coli, patient did not pick antibiotics Plan: Patient received magnesium sulfate bolus of 4 g, now on 2 g an hour Betamethasone 12 mg IM given COVID test done and negative Group B strep obtained and negative Will wait to treat with antibiotics until arrives at Nifedipine XL 30 x[address] Batista at and the patient has been accepted for care. Time Spent with Patient Total time spent with greater than 50% in coordination of care (as documented) at patient's floor/unit and/or counseling patient:: 25 - 35 minutes
[2021-03-20 12:34] LABS: Strep Grp B PCR NEG for Grp B Strep
[2021-03-20] MEDS: NIFEdipine 30 MG TAB ER PO (12:56)
== END 2021-03-20 13:43 | disposition home or self-care (01) | DRG 566 ==
PROVIDERS: Admitting Provider Obstetrics & Gynecology; Referring Provider Obstetrics & Gynecology; Visit Provider Obstetrics & Gynecology
DX: O14.13 Severe pre-eclampsia, third trimester (principal); O36.5930 Maternal care for other known or suspected poor fetal growth, third trimester, not applicable or unspecified; O41.03X0 Oligohydramnios, third trimester, not applicable or unspecified; Z3A.34 34 weeks gestation of pregnancy; Z87.440 Personal history of urinary (tract) infections; Z20.822 Contact with and (suspected) exposure to COVID-19
CPT/HCPCS: 36415; 59025; 59050; 76811; 84450; 84550; 85025; 86850; 86900; 86901; 87635; 87653; 96360; 96372; 99222; C9803; G0378; G0379; J0702; J3475

== ENCOUNTER 2021-04-09 21:55 | Emergency (ER) | payer OTHER, MEDICAID, SELFPAY ==
--- NOTE | 2021-04-09 22:02 | ED.GENADULT ---
HPI - General Adult General Chief complaint: Wound/Laceration Stated complaint: HAD C SECTION NEEDS PAD CHANGED Time Seen by Provider: 04/09/21 22:02 History of Present Illness HPI narrative: 20-year-old with a history of significant preeclampsia transferred to the [facility] with at 35 weeks gestational age. She and her son are both home now she had what looks like minor infection with central dehiscence of her wound. It is packed and she comes in concerned that it isn't healing appropriately. She describes no fevers, chills, abdominal pain. Lochia has completely resolved. She has no other specific complaints at this time Related Data Previous Rx's Medication Instructions Recorded vitamins no.119-iron 1 tab PO DAILY #60 tab 08/29/20 fumarate 29 mg-folic acid 1 mg tablet Allergies Allergy/AdvReac Type Severity Reaction Status Date / Time No Known Drug Allergies Allergy Verified 03/20/21 09:02 Review of Systems Review of Systems Narrative: Remainder of complete review of systems is otherwise unremarkable except for that included in the HPI. Patient History Medical History (Updated 04/09/21 @ 22:42 by Shanique Batres MD) Healthy adult Surgical History (Updated 04/09/21 @ 22:39 by Shanique Batres MD) No pertinent past surgical history Status post section Family History Mother No problems noted. Father No problems noted. Grandmother No problems noted. Grandfather No problems noted. Grandmother No problems noted. Grandfather No problems noted. Brother No problems noted. Sister No problems noted. 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 : aware and precautions feliciano/cheondoism: [employer] special feliciano needs: No seatbelt use: always helmet use: Yes Smoking Status: Never smoker second hand exposure: No alcohol intake: never substance use type: does not use and marijuana during the past year weight has: remained stable well-balanced diet: daily or most days daily servings fruits/ve-4 caffeine: Yes eating out: 1-3 times/week Smoking Status: Never smoker alcohol intake frequency: other Substance Use Type: does not use Exam Narrative Exam Narrative: General: Alert appropriate in no acute distress Respiratory: Able to speak in full sentences, no obvious respiratory distress Abdomen: She has the nicely healing lower Pfannenstiel incision with an approximately 1-1/2 cm opening centrally with some packing that is currently placed. It is healing nicely, no drainage, no discharge. There is no surrounding erythema or tenderness. Packing is removed without complication. Skin: No obvious rashes, warm and dry Neurologic: Grossly intact no obvious asymmetries or abnormalities Psych: appropriate insight and affect, cooperative Initial Vital Signs Initial Vital Signs: Vital Signs Temperature 98.1 F 04/09/21 22:05 Pulse Rate 80 04/09/21 22:05 Respiratory Rate 17 04/09/21 22:05 Blood Pressure 115/58 L 04/09/21 22:05 Pulse Oximetry 99 04/09/21 22:05 Course Vital Signs Vital signs: Vital Signs - 8 hr 04/09/21 22:05 Temperature 98.1 F Pulse Rate 80 Respiratory Rate 17 Blood Pressure 115/58 L Pulse Oximetry 99 Medical Decision Making MDM Narrative Medical decision making narrative: 20-year-old woman comes in for help with her scar, dehiscence and packing. The wound is healing nicely. The minor amount of packing still in place is removed. A sterile 2 x 2 gauze is placed with the edge of the gauze between the skin edges to continue to allow drainage in secondary healing. No evidence of infection. She has an appointment with her primary OBGYN tomorrow. She is safe for home discharge Discharge Plan Departure Patient Disposition: Home Clinical Impression: Visit for wound care Instructions: How to Care for a Surgical Wound Activity Restrictions/Additional Instructions: Your scar is healing nicely. There is not any drainage or infection at this time. I did take the small amount of packing that was there out. It is okay to take the dressing entirely off and get in the shower. It is healed enough that you can let water run over the wound and then simply patted dry. When you put a bit of gauze on top tucked just the edge of the gauze into the center portion of the wound so the skin edges do not heal completely and the wound continues to heal from the inside out. Please keep your appointment tomorrow with your OBGYN. I hope you continue to heal quickly. Prescriptions: No Action PNV 119-iron fum-folic acid 29 mg iron- 1 mg tablet 1 tab PO DAILY Qty: 60 RF: 2
[2021-04-09 22:05] VITALS: BP 115/58; PULSE 80; RESP 17; TEMP 36.7; O2SAT 99; BMI 22.3
[2021-04-09 22:48] VITALS: BP 115/58; PULSE 80; RESP 18; TEMP 36.5; O2SAT 99
== END 2021-04-09 22:49 | disposition home or self-care (01) ==
PROVIDERS: Emergency Provider Emergency Medicine
DX: Z48.00 Encounter for change or removal of nonsurgical wound dressing (principal)
CPT/HCPCS: 99281

== ENCOUNTER → 2021-05-06 14:48 | Outpatient (CLI) | payer OTHER, MEDICAID, SELFPAY ==
[2021-05-06 17:48] LABS: Bilirubin Urine UA NEGATIVE (NEGATIVE); Color Urine UA YELLOW; Glucose Urine UA TRACE g/dL (Negative); Ketones Urine UA NEGATIVE (NEGATIVE); Leukocyte Esterase Urine UA TRACE (NEGATIVE); Nitrite Urine UA NEGATIVE (Negative); Occult Blood Urine UA 3+ (Negative); Protein Urine UA 2+ (Negative); Specific Gravity Urine UA 1.025 (1.000-1.035); Urobilinogen Urine UA 0.2 E.U./dL (0.2)
[2021-05-06 17:58] LABS: Appearance Urine UA Slightly Cloudy; pH Urine UA 5.5 (4.5-8.0)
[2021-05-06 17:59] LABS: Amorphous Sediment Urine 1+; Bacteria Urine Few (2-10); Culture Indicated Urine Specimen Cultured; Mucus Urine 1+ (Negative); RBC Urine 1-5/HPF (0-5/HPF); Squamous Epithelial Cell Urine 1-5 /HPF (0-5/HPF); WBC Urine 5-10/HPF (0-5/HPF)
== END ==
PROVIDERS: Referring Provider Obstetrics & Gynecology; Visit Provider Obstetrics & Gynecology
DX: R35.89 Other polyuria (principal); Z98.891 History of uterine scar from previous surgery
CPT/HCPCS: 81001; 81002; 87086

== ENCOUNTER 2021-05-14 19:02 | Emergency (ER) | payer OTHER, MEDICAID, SELFPAY ==
[2021-05-14 19:51] VITALS: BP 109/65; PULSE 90; RESP 18; TEMP 36.5; O2SAT 99
[2021-05-14 20:14] LABS: Bacteria Urine None Seen; Culture Indicated Urine Cult Not Indicated; RBC Urine 1-5/HPF (0-5/HPF); Squamous Epithelial Cell Urine 1-5 /HPF (0-5/HPF); Transitional Epi Cells Urine 1-5/HPF (0-5/HPF); WBC Urine 1-5/HPF (0-5/HPF)
[2021-05-15 00:58] LABS: Add Manual Diff / Slide Review NO; Basophils Absolute Auto 100 /uL (0-100); Basophils Percent Auto 1.4 % (0-2); Eosinophils Absolute Auto 0 /uL (0-450); Eosinophils Percent Auto 0.5 % (2-4); Hematocrit 36.7 % (36-46); Hemoglobin 12.1 g/dL (12.0-16.0); Lymphocytes Absolute Auto 1700 /uL (1100-4500); Lymphocytes Percent Auto 19.8 % (25-40); Mean Corpuscular Hemoglobin 24.9 PG (26-34); Mean Corpuscular Volume 75.6 fL (80-100); Monocytes Absolute Auto 500 /uL (0-900); Monocytes Percent Auto 6.1 % (3-14); Neutrophils Absolute Auto 6100 /uL (1500-7000); Neutrophils Percent Auto 72.2 % (50-75); Platelet Count 528 X10^3/uL (150-400); Red Blood Cell Count 4.86 X10^6/uL (4.0-5.2); Red Cell Distribution Width 15.3 % (11.6-14.8); White Blood Cell Count 8.5 X10^3/uL (4.5-11.0)
[2021-05-15 01:07] LABS: Lactate (Lactic Acid) 1.1 mmol/L (0.7-2.1)
[2021-05-15 01:08] LABS: Alanine Aminotransferase 19 IU/L (<35); Albumin 4.5 g/dL (3.5-5.0); Albumin Globulin Ratio 1.3 (1.0-2.8); Alkaline Phosphatase 88 U/L (38-126); Aspartate Aminotransferase 23 IU/L (14-36); BUN Creatinine Ratio 33.3 (6-22); Bilirubin Total 0.3 mg/dL (0.2-1.3); Blood Urea Nitrogen 17 mg/dL (7-17); Calcium 9.2 mg/dL (8.4-10.2); Carbon Dioxide 23 mmol/L (22-32); Chloride 109 mmol/L (98-107); Estimated Glomerular Filt Rate > 60.0 mL/min (>60); Globulin 3.4 g/dL (1.7-4.1); Glucose 120 mg/dL (70-100); HEMOLYSIS < 15 (0-50); Lipase 111 U/L (23-300); Potassium 3.7 mmol/L (3.4-5.1); Sodium 143 mmol/L (137-145); Total Protein 7.9 g/dL (6.3-8.2)
--- NOTE | 2021-05-15 01:50 | ED_ITS ---
HPI - Female Genitourinary General Chief complaint: Urogenital-Female Stated complaint: burning with urination, stomach pains Time Seen by Provider: 05/15/21 01:49 Source: patient Mode of arrival: Ambulatory Limitations: no limitations History of Present Illness HPI Narrative: Patient is a 20-year-old female history of preeclampsia is transferred to [facility] with at 35 weeks on March 27 presenting today with on going abdominal pain and painful frequent urination. She does not have a UTI. She was actually seen and evaluated by OB here in started on Augmentin for what I presume is endometritis. She says that antibiotic she has finished and has not helped she continues to have pain along her scar she feels like she has some abnormal discharge. She denies any fever or chills. Related Data Previous Rx's Medication Instructions Recorded vitamins no.119-iron 1 tab PO DAILY #60 tab 08/29/20 fumarate 29 mg-folic acid 1 mg tablet hydrocodone 5 mg-acetaminophen 325 1 tab PO Q4-6H PRN #20 tab 04/11/21 mg tablet amoxicillin 875 mg-potassium 1 tab PO BID #10 tab 05/06/21 clavulanate 125 mg tablet (Augmentin) medroxyprogesterone 150 mg/mL 150 mg IM [id number] #1 ml 05/06/21 intramuscular suspension (Depo-Provera) clindamycin HCl 300 mg capsule 300 mg PO QID #40 cap 05/15/21 oxycodone-acetaminophen 5 mg-325 1 tab PO Q6H PRN #10 tab 05/15/21 mg tablet (Percocet) Allergies Allergy/AdvReac Type Severity Reaction Status Date / Time No Known Drug Allergies Allergy Verified 03/20/21 09:02 Review of Systems Review of Systems Narrative: GENERAL: Denies chills,fever HEENT: Denies throat pain RESPIRATORY: Denies dyspnea, cough, wheezing CARDIOVASCULAR: Denies chest pain, palpitations GASTROINTESTINAL: Abdominal pain, CHF 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 Father No problems noted. Grandmother No problems noted. Grandfather No problems noted. Grandmother No problems noted. Grandfather No problems noted. Brother No problems noted. Sister No problems noted. alcohol intake frequency: other Substance Use Type: does not use Exam Initial Vital Signs Initial Vital Signs: Vital Signs Temperature 97.7 F 05/14/21 19:51 Pulse Rate 90 05/14/21 19:51 Respiratory Rate 18 05/14/21 19:51 Blood Pressure 109/65 05/14/21 19:51 Pulse Oximetry 99 05/14/21 19:51 GENERAL: Alert very patient 20-year-old female no acute distress HEENT: Head atraumatic,EOMI, pupils reactive, face symmetric, moist mucous membranes CARDIOVASCULAR: Regular rate and rhythm without murmurs, rubs or gallops. RESPIRATORY: Breath sounds equal bilaterally, no wheezes rales or rhonchi. ABDOMEN: Soft, she is actually quite tender along her scar no erythema it is healed PELVIC: External genitalia is normal, no vaginal bleeding, vaginal grayishl discharge at cervix, no odor, cervical tenderness with mild adnexal tenderness EXTREMITIES: Normal range of motion, no clubbing or edema. Neurovascularly intact NEUROLOGICAL: Alert and oriented x4.Normal gait and speech. SKIN: Warm, dry, no laceration, no petechiae, no rashes or lesions. Course Orders Ordered: ED Orders 05/15/21 00:45 Complete Blood Count AUTO DIFF Stat Comprehensive Metabolic Panel Stat Lactate (Lactic Acid) Stat Lipase Stat 05/15/21 02:15 US pelvic complete Stat 05/15/21 03:20 Genital Culture Stat 05/15/21 03:26 Chlamydia/Gonoc/Myco Genital Stat Wet Prep Tric BV Judith Stat Discontinued Medications Ceftriaxone Sodium (Ceftriaxone 1,000 Mg Vial) 500 mg IM NOW ONE Stop: 05/15/21 03:27 Last Admin: 05/15/21 03:55 Dose: 500 mg Documented by: ZARIA Doxycycline Hyclate (Doxycycline Hyclate 100 Mg Tablet) 100 mg PO NOW ONE Stop: 05/15/21 03:27 Last Admin: 05/15/21 03:40 Dose: 100 mg Documented by: ZARIA Ketorolac Tromethamine (Ketorolac 30 Mg/Ml Vial) 30 mg IM NOW ONE Stop: 05/15/21 02:38 Last Admin: 05/15/21 03:16 Dose: 30 mg Documented by: ZARIA Lidocaine HCl (Lidocaine 1% 20 Ml) 2.1 ml INJ NOW ONE Stop: 05/15/21 03:27 Last Admin: 05/15/21 03:55 Dose: 2.1 ml Documented by: ZARIA Metronidazole (Metronidazole 500 Mg Tablet) 500 mg PO NOW ONE Stop: 05/15/21 03:27 Last Admin: 05/15/21 03:40 Dose: 500 mg Documented by: ZARIA Oxycodone/Acetaminophen (Oxycodone/Apap 5/325 Prepack) 1 bottle MISC SEEINSTR ONE Stop: 05/15/21 04:23 Last Admin: 05/15/21 04:33 Dose: 1 bottle Documented by: ZARIA Vital Signs Vital signs: Vital Signs - 8 hr 05/15/21 01:51 05/15/21 04:33 Pulse Rate 99 H 94 H Respiratory Rate 16 16 Blood Pressure 117/73 114/72 Pulse Oximetry 100 100 MDM - Female Genitourinary Lab Data Result diagrams: 05/15/21 00:45 05/15/21 00:45 Labs: Lab Results 05/14/21 05/15/21 05/15/21 Range/Units 19:24 00:45 00:45 WBC 8.5 (4.5-11.0) X10^3/uL RBC 4.86 (4.0-5.2) X10^6/uL Hgb 12.1 (12.0-16.0) g/dL Hct 36.7 (36-46) % MCV 75.6 L (80-100) fL MCH 24.9 L (26-34) PG MCHC 33.0 (30-36) % RDW 15.3 H (11.6-14.8) % Plt Count 528 H (150-400) X10^3/uL Neut % (Auto) 72.2 (50-75) % Lymph % (Auto) 19.8 L (25-40) % Eagle % (Auto) 6.1 (3-14) % Eos % (Auto) 0.5 L (2-4) % Baso % (Auto) 1.4 (0-2) % Neut # (Auto) 6100 (1858-0490) /uL Lymph # (Auto) 1700 (8460-3571) /uL Eagle # (Auto) 500 (0-900) /uL Eos # (Auto) 0 (0-450) /uL Baso # (Auto) 100 (0-100) /uL Sodium 143 (137-145) mmol/L Potassium 3.7 (3.4-5.1) mmol/L Chloride 109 H (98-107) mmol/L Carbon Dioxide 23 (22-32) mmol/L BUN 17 (7-17) mg/dL Creatinine 0.51 L (0.52-1.04) mg/dL Estimated GFR > 60.0 (>60) mL/min BUN/Creatinine Ratio 33.3 H (6-22) Glucose 120 H (70-100) mg/dL Lactate (0.7-2.1) mmol/L Calcium 9.2 (8.4-10.2) mg/dL Total Bilirubin 0.3 (0.2-1.3) mg/dL AST 23 (14-36) IU/L ALT 19 (<35) IU/L Alkaline Phosphatase 88 (38-126) U/L Total Protein 7.9 (6.3-8.2) g/dL Albumin 4.5 (3.5-5.0) g/dL Globulin 3.4 (1.7-4.1) g/dL Albumin/Globulin Ratio 1.3 (1.0-2.8) Lipase 111 (23-300) U/L Urine RBC 1-5/hpf (0-5/HPF) Urine WBC 1-5/hpf (0-5/HPF) Ur Squamous Epith Cells 1-5 /hpf (0-5/HPF) Ur Transition Epith Cell 1-5/hpf (0-5/HPF) Urine Bacteria None seen (None) Ur Culture Indicated? Cult not indicated 05/15/21 Range/Units 00:45 WBC (4.5-11.0) X10^3/uL RBC (4.0-5.2) X10^6/uL Hgb (12.0-16.0) g/dL Hct (36-46) % MCV (80-100) fL MCH (26-34) PG MCHC (30-36) % RDW (11.6-14.8) % Plt Count (150-400) X10^3/uL Neut % (Auto) (50-75) % Lymph % (Auto) (25-40) % Eagle % (Auto) (3-14) % Eos % (Auto) (2-4) % Baso % (Auto) (0-2) % Neut # (Auto) (1982-8141) /uL Lymph # (Auto) (2197-6001) /uL Eagle # (Auto) (0-900) /uL Eos # (Auto) (0-450) /uL Baso # (Auto) (0-100) /uL Sodium (137-145) mmol/L Potassium (3.4-5.1) mmol/L Chloride (98-107) mmol/L Carbon Dioxide (22-32) mmol/L BUN (7-17) mg/dL Creatinine (0.52-1.04) mg/dL Estimated GFR (>60) mL/min BUN/Creatinine Ratio (6-22) Glucose (70-100) mg/dL Lactate 1.1 (0.7-2.1) mmol/L Calcium (8.4-10.2) mg/dL Total Bilirubin (0.2-1.3) mg/dL AST (14-36) IU/L ALT (<35) IU/L Alkaline Phosphatase (38-126) U/L Total Protein (6.3-8.2) g/dL Albumin (3.5-5.0) g/dL Globulin (1.7-4.1) g/dL Albumin/Globulin Ratio (1.0-2.8) Lipase (23-300) U/L Urine RBC (0-5/HPF) Urine WBC (0-5/HPF) Ur Squamous Epith Cells (0-5/HPF) Ur Transition Epith Cell (0-5/HPF) Urine Bacteria (None) Ur Culture Indicated? Point of Care Testing Test Results Negative Urine Dip Bedside Urine Glucose Negative Bedside Urine Bilirubin - Negative Bedside Urine Ketone - Negative Urine Specific [place] 1.03 Bedside Urine Occult Blood - Negative Bedside Urine pH 6 Bedside Urine Protein ++ 100 Bedside Urine Urobilinogen - Negative Bedside Urine Nitrite - Negative Bedside Urine Leukocytes - Negative Esterase Imaging Data US - TICKET MACHINE OPERATOR: Radiologist's Impression: Preliminary report postsurgical change. No significant abnormality MDM Narrative Medical decision making narrative: The patient is quite tender with some abnormal vaginal discharge. She is afebrile without leukocytosis concern for persistent endometritis. She is given a dose of Rocephin IM, 1 dose of doxy and 1 dose of Flagyl, however this is unlikely gonorrhea/chlamydia with her recent . More likely persistent endometritis. Flagyl will cover anaerobes and is an option, however Ob prefers clindamycin. 4:10am Dr. Escobedo, on-call OB updated patient symptoms test results recommends clindamycin and close follow-up with compress machine operator. Patient is given pain medication Toradol and his Percocet. She has been in the emergency department and waiting to be seen for at least 9 hours. At this time she is ready to go home. Discharge Plan Departure Patient Disposition: Home Clinical Impression: Acute endometritis Instructions: Endometritis Activity Restrictions/Additional Instructions: *You have been diagnosed with endometritis *What to do: Your pain is likely due to and is infection. Blood work is overall reassuring. His your given 1 dose of antibiotics here in the emergency department and will continue antibiotics for 14 days. Cultures and results should come back in about 2-3 days if needed we will call you to possibly change antibiotics in about 3 days *Continue to take medications as directed Clindamycin 300 mg 4 times daily for 10 days--> sent to [facility] in [place] Percocet 1 tablet every 6 hours if needed for severe pain *Follow up with your primary care provider in 2-3 days Please call your OB tomorrow to schedule close follow-up appointment *Return to ER if you should have increasing pain, fever or any new, worsening or concerning symptoms CONTROLLED SUBSTANCE DISCHARGE (Narcotoic/benzodiazepine/Flexeril/Phenergan) 1. You have been prescribed narcotic medications, it does have acetaminophen/Tylenol/paracetamol in it, DO NOT TAKE MORE THAN 4,00mg in 24 h ours of Tylenol. TRAMADOL DOES NOT CONTAIN TYLENOL 2. Please understand that we cannot provide further refills of narcotics, benzodiazepines or controlled substances through the ED and her pain management will need to be through your provider. 3. While on these medications you cannot drive or operate heavy machinery. 4. You cannot sign legal documents or perform any duties such as this. 5. As long as you're taking opiate pain medications he should also be taking a stool softener such as Colace, Dulcolax, MiraLAX or prune juice, to help avoid constipation. Prescriptions: New clindamycin HCl 300 mg capsule 300 mg PO QID Qty: 40 0RF oxycodone-acetaminophen [Percocet] 5-325 mg tablet 1 tab PO Q6H PRN (Reason: pain) Qty: 10 0RF No Action hydrocodone-acetaminophen 5-325 mg tablet 1 tab PO Q4-6H PRN (Reason: pain) Qty: 20 0RF amoxicillin-pot clavulanate [Augmentin] 875-125 mg tablet 1 tab PO BID Qty: 10 0RF medroxyprogesterone [Depo-Provera] 150 mg/mL suspension 150 mg IM [id number] Qty: 1 3RF Rx Instructions: Next due Jul 22-Aug 05 2021 PNV 119-iron fum-folic acid 29 mg iron- 1 mg tablet 1 tab PO DAILY Qty: 60 2RF Referrals: Ifeoma Braswell MD [Primary Care Provider] -
[2021-05-15 01:51] VITALS: BP 117/73; PULSE 99; RESP 16; O2SAT 100
--- NOTE | 2021-05-15 02:15 | DI.US.S_ITS ---
PROCEDURE: US PELVIC COMPLETE INDICATIONS: PAIN TECHNIQUE: Real-time scanning was performed of the pelvic organs, with image documentation. Additional endovaginal scanning was necessary due to incomplete visualization of the adnexal and endometrial structures by transabdominal scanning. COMPARISON: [facility], US, US PELVIC COMPLETE, 09/03/2020, 11:54. FINDINGS: Uterus: Uterus is anteverted and normal in size at 6.5 x 3.5 x 5.5 cm. The myometrium is mildly heterogeneous. The endometrium measures 2.1 mm combined thickness. Ovaries: The right ovary measures 3.2 x 1.7 x 1.4 cm. The left ovary measures 3.2 x 1.4 x 1.2 cm. The ovaries have a normal sonographic appearance. No adnexal masses are seen. Other: No pathologic free abdominal or pelvic fluid. IMPRESSION: 1. No significant sonographic abnormality. We strive to produce accurate, complete, and clear reports of imaging services. To assist us in improving patient care, this report was composed using standard report templates and voice recognition software. Therefore, it may contain abnormal punctuation, insertions and/or omissions. Occasional wrong-word or sound-alike substitutions may occur. Though we review the report and make efforts to correct it, we do recommend that the report be read carefully in proper context to recognize any text inaccuracies. Dictated by: Jamie Gonzalez M.D. on 05/15/2021 at 8:33 Approved by: Jamie Gonzalez M.D. on 05/15/2021 at 8:36
[2021-05-15] MEDS: KETOROLAC 30 MG/ML VIAL IM (03:16)
[2021-05-15] MEDS: DOXYCYCLINE HYCLATE 100 MG TABLET PO (03:40)
[2021-05-15] MEDS: metroNIDAZOLE 500 MG TABLET PO (03:40)
[2021-05-15] MEDS: cefTRIAXone 1,000 MG VIAL 500 MG IM (03:55)
[2021-05-15] MEDS: LIDOCAINE 1% 20 ML 2.1 ML INJ (03:55)
[2021-05-15 04:33] VITALS: BP 114/72; PULSE 94; RESP 16; O2SAT 100
[2021-05-15] MEDS: OXYCODONE/APAP 5/325 PREPACK 1 BOTTLE MISC (04:33)
[2021-05-18 04:11] LABS: Chlamydia trachomatis Negative (Negative); Mycoplasma genitalium Negative (Negative); Neisseria gonorrhoeae Negative (Negative)
== END 2021-05-15 04:34 | disposition home or self-care (01) ==
PROVIDERS: Emergency Provider Emergency Medicine; PCP Obstetrics & Gynecology
DX: O86.12 Endometritis following delivery (principal); Z98.891 History of uterine scar from previous surgery
CPT/HCPCS: 36415; 76830; 76856; 80053; 81003; 81015; 81025; 83605; 83690; 85025; 87070; 87205; 87210; 87491; 87563; 87591; 96372; 99284; J0696; J1885

== ENCOUNTER → 2021-05-22 12:07 | Outpatient (CLI) | payer OTHER, MEDICAID, SELFPAY ==
[2021-05-23 08:13] LABS: HSV 2 IGG AB < 0.91 index (0.00-0.90)
[2021-05-23 21:43] LABS: HSV I/II IgM 1.24 Ratio (0.00-0.90)
== END ==
PROVIDERS: PCP Obstetrics & Gynecology; Referring Provider Obstetrics & Gynecology; Visit Provider Obstetrics & Gynecology
DX: N90.89 Other specified noninflammatory disorders of vulva and perineum (principal)
CPT/HCPCS: 36415; 81002; 86694; 86695; 86696

== ENCOUNTER 2021-05-23 01:47 | Emergency (ER) | payer OTHER, MEDICAID, SELFPAY ==
[2021-05-23 01:49] VITALS: BP 119/67; PULSE 91; RESP 18; TEMP 36.5; O2SAT 99; BMI 22.3
--- NOTE | 2021-05-23 02:15 | ED.GENADULT ---
HPI - General Adult General Chief complaint: Urogenital-Female Stated complaint: painful when urinating x2 weeks Time Seen by Provider: 05/23/21 01:57 Source: patient Mode of arrival: Ambulatory Limitations: no limitations History of Present Illness HPI narrative: Patient is a 20-year-old female who is been seen in this emergency department multiple times for lower abdominal/pelvic discomfort and also dysuria. She was seen most recently by an OBGYN provider yesterday. She did have some cultures taken. She has had ultrasounds. She states she was told that if her symptoms worsen she needs to come to the emergency department. She states she is having quite a bit of irritation with urination. She has tried azo in the past without any improvements. She has been on multiple different courses of antibiotics without any improvement. She states that this evening her symptoms worsened. Related Data Previous Rx's Medication Instructions Recorded vitamins no.119-iron 1 tab PO DAILY #60 tab 08/29/20 fumarate 29 mg-folic acid 1 mg tablet hydrocodone 5 mg-acetaminophen 325 1 tab PO Q4-6H PRN #20 tab 04/11/21 mg tablet amoxicillin 875 mg-potassium 1 tab PO BID #10 tab 05/06/21 clavulanate 125 mg tablet (Augmentin) medroxyprogesterone 150 mg/mL 150 mg IM [id number] #1 ml 05/06/21 intramuscular suspension (Depo-Provera) clindamycin HCl 300 mg capsule 300 mg PO QID #40 cap 05/15/21 oxycodone-acetaminophen 5 mg-325 1 tab PO Q6H PRN #10 tab 05/15/21 mg tablet (Percocet) Allergies Allergy/AdvReac Type Severity Reaction Status Date / Time No Known Drug Allergies Allergy Verified 05/22/21 11:18 Review of Systems Constitutional Constitutional: Denies fever(s) Gastrointestinal Gastrointestinal: Reports as per HPI and Reports system reviewed and no additional complaints, except as documented Genitourinary Genitourinary: Reports system reviewed and no additional complaints, except as documented and Reports as per HPI Integumentary/Breasts Skin/Breast: Reports system reviewed and no additional complaints, except as documented Hematologic/Lymphatic On Anticoagulants: No Patient History Medical History Healthy adult Surgical History (Updated 04/09/21 @ 22:39 by Shanique Batres MD) No pertinent past surgical history Status post section Family History Mother No problems noted. Father No problems noted. Grandmother No problems noted. Grandfather No problems noted. Grandmother No problems noted. Grandfather No problems noted. Brother No problems noted. Sister No problems noted. 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 feliciano/hindu: Sikhism special felicinao needs: No seatbelt use: always helmet use: Yes Smoking Status: Never smoker second hand exposure: No alcohol intake: never substance use type: does not use and marijuana during the past year weight has: remained stable well-balanced diet: daily or most days daily servings fruits/ve-4 caffeine: Yes eating out: 1-3 times/week Smoking Status: Never smoker alcohol intake frequency: other Substance Use Type: does not use Exam Initial Vital Signs Initial Vital Signs: Vital Signs Temperature 97.7 F 05/23/21 01:49 Pulse Rate 91 H 05/23/21 01:49 Respiratory Rate 18 05/23/21 01:49 Blood Pressure 119/67 05/23/21 01:49 Pulse Oximetry 99 05/23/21 01:49 Const General: cooperative, healthy appearing, comfortable and well developed HENMT Head: normal to inspection and normocephalic Resp Effort & Inspection: normal respiratory effort Cardio Rate: regular rate Other: Normal external genitalia without vesicles. This exam was performed with nursing at bedside Skin General: no rashes or lesions noted Extrem General: normal to inspection and capillary refill normal Course Orders Ordered: ED Orders 05/23/21 02:14 Urine Culture Stat Urine Microscopic Stat Vital Signs Vital signs: Vital Signs - 8 hr 05/23/21 01:49 Temperature 97.7 F Pulse Rate 91 H Respiratory Rate 18 Blood Pressure 119/67 Pulse Oximetry 99 Medical Decision Making Lab Data Labs: Lab Results 12/02/21 Range/Units 02:14 Urine RBC None seen (0-5/HPF) Urine WBC 1-5/hpf (0-5/HPF) Ur Squamous Epith Cells 0-1 /hpf (0-5/HPF) Urine Bacteria Few (2-10) H (None) Hyaline Casts 0-1/lpf (None) Ur Culture Indicated? Specimen cultured Point of Care Testing Test Results Negative Urine Dip Bedside Urine Glucose 100 mg/dl Bedside Urine Bilirubin - Negative Bedside Urine Ketone - Negative Urine Specific [place] 1.020 Bedside Urine Occult Blood - Negative Bedside Urine pH 6.0 Bedside Urine Protein +/- 15 Bedside Urine Urobilinogen - Negative Bedside Urine Nitrite - Negative Bedside Urine Leukocytes +/- 15 Esterase Point of care testing: Point of Care Testing Test Results Negative Urine Dip Bedside Urine Glucose 100 mg/dl Bedside Urine Bilirubin - Negative Bedside Urine Ketone - Negative Urine Specific [place] 1.020 Bedside Urine Occult Blood - Negative Bedside Urine pH 6.0 Bedside Urine Protein +/- 15 Bedside Urine Urobilinogen - Negative Bedside Urine Nitrite - Negative Bedside Urine Leukocytes +/- 15 Esterase MDM Narrative Medical decision making narrative: Patient has had extensive workup the past several weeks/months. She has an unremarkable exam today. No indication for antibiotics. No indication for any repeat radiologic studies. Unfortunately not much further can be offered during this emergency department visit and she was informed that she needed to all instructions given to her by the clinical social worker provider. She was given return precautions. She expressed understanding and agreement. Discharge Plan Departure Patient Disposition: Home Clinical Impression: Dysuria Instructions: DI for Dysuria -- Adult Activity Restrictions/Additional Instructions: The herpes cultures that were taken yesterday are still pending. Your clinical social worker provider should call you with the results of these. There is no indication to start any antibiotics today. You can try some barrier cream like we discussed. Contact your primary doctor for a follow-up. Prescriptions: No Action hydrocodone-acetaminophen 5-325 mg tablet 1 tab PO Q4-6H PRN (Reason: pain) Qty: 20 0RF amoxicillin-pot clavulanate [Augmentin] 875-125 mg tablet 1 tab PO BID Qty: 10 0RF medroxyprogesterone [Depo-Provera] 150 mg/mL suspension 150 mg IM [id number] Qty: 1 3RF Rx Instructions: Next due Jul 22-Aug 05 2021 clindamycin HCl 300 mg capsule 300 mg PO QID Qty: 40 0RF oxycodone-acetaminophen [Percocet] 5-325 mg tablet 1 tab PO Q6H PRN (Reason: pain) Qty: 10 0RF PNV 119-iron fum-folic acid 29 mg iron- 1 mg tablet 1 tab PO DAILY Qty: 60 2RF Referrals: Ifeoma Braswell MD [Primary Care Provider] -
[2021-05-23 02:20] LABS: RBC Urine None Seen (0-5/HPF); WBC Urine 1-5/HPF (0-5/HPF)
[2021-05-23 02:21] LABS: Bacteria Urine Few (2-10); Hyaline Casts Urine 0-1/LPF; Squamous Epithelial Cell Urine 0-1 /HPF (0-5/HPF)
[2021-05-23 02:22] LABS: Culture Indicated Urine Specimen Cultured
== END 2021-05-23 02:54 | disposition home or self-care (01) ==
PROVIDERS: Emergency Provider Emergency Medicine; PCP Obstetrics & Gynecology
DX: R30.0 Dysuria (principal)
CPT/HCPCS: 81003; 81015; 81025; 87086; 99282

== ENCOUNTER 2021-05-24 22:12 | Emergency (ER) | payer OTHER, MEDICAID, SELFPAY ==
[2021-05-24 22:30] VITALS: BP 118/73; PULSE 80; RESP 18; TEMP 36.3; O2SAT 97
--- NOTE | 2021-05-24 23:48 | ED.ABDPAIN ---
HPI - Abdominal Pain General Chief Complaint: Urogenital-Female Stated Complaint: ABD PAIN VAGINAL DISCOMFORT Time Seen by Provider: 05/24/21 22:17 Source: patient Mode of arrival: Ambulatory Limitations: no limitations History of Present Illness HPI narrative: 20-year-old femaleNonsmoker with ongoing complaints of abdominal pain for many months presents with a chief complaint of lower abdominal pain, perhaps worse in the left lower quadrant which has been present for many days if not weeks. She states the pain is worse with motion and improves with rest. She denies any fever or chills. She has no nausea or vomiting. She denies any constipation or diarrhea. She states that she has been having pain off and on in this region ever since she had a in March. She has had multiple evaluations by various providers including an ultrasound as recently as a few weeks ago. Additionally she has had frequent dysuria despite negative urines. She recently was diagnosed with herpes and has had 3-4 doses of her antiviral. She denies any vaginal bleeding or discharge. Related Data Previous Rx's Medication Instructions Recorded vitamins no.119-iron 1 tab PO DAILY #60 tab 08/29/20 fumarate 29 mg-folic acid 1 mg tablet hydrocodone 5 mg-acetaminophen 325 1 tab PO Q4-6H PRN #20 tab 04/11/21 mg tablet amoxicillin 875 mg-potassium 1 tab PO BID #10 tab 05/06/21 clavulanate 125 mg tablet (Augmentin) medroxyprogesterone 150 mg/mL 150 mg IM [id number] #1 ml 05/06/21 intramuscular suspension (Depo-Provera) clindamycin HCl 300 mg capsule 300 mg PO QID #40 cap 05/15/21 oxycodone-acetaminophen 5 mg-325 1 tab PO Q6H PRN #10 tab 05/15/21 mg tablet (Percocet) valacyclovir 500 mg tablet 500 mg PO BID #10 tab 05/23/21 (Valtrex) Allergies Allergy/AdvReac Type Severity Reaction Status Date / Time No Known Drug Allergies Allergy Verified 05/22/21 11:18 Review of Systems Review of Systems Narrative: GENERAL: Denies chills, fatigue, malaise, fever, sweats. HEENT: Denies sinus pain, ear pain, sore throat, difficulty swallowing, dizziness. RESPIRATORY: Denies dyspnea, cough, wheezing, hemoptysis, sputum. CARDIOVASCULAR: Denies chest pain, palpitations, orthopnea, edema, GASTROINTESTINAL: See HPI : See HPI MUSCULOSKELETAL: denies weakness, joint pain, or bony pain SKIN: Denies rash, skin lesions, or other NEUROLOGIC: Denies weakness, headache, numbness, change in speech, confusion, seizures, incoordination. PSYCHIATRIC: No concerning psychosocial issues. 12 point review of systems is negative except for those stated above Patient History Medical History Healthy adult Surgical History No pertinent past surgical history Status post section Family History Mother No problems noted. Father No problems noted. Grandmother No problems noted. Grandfather No problems noted. Grandmother No problems noted. Grandfather No problems noted. Brother No problems noted. Sister No problems noted. 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 Well-developed patient, in mild distress. HEAD: Atraumatic. Normocephalic. EYES: Pupils equal round and reactive. Extraocular motions intact. No scleral icterus. No injection or drainage. ENT: Nose without bleeding, purulent drainage. Throat without erythema, tonsillar hypertrophy or exudate. Airway patent. NECK: Trachea midline. Non tender CARDIOVASCULAR: Regular rate and rhythm without murmurs, gallops, or rubs. RESPIRATORY: Clear to auscultation. Breath sounds equal bilaterally. No wheezes, rales, or rhonchi. GASTROINTESTINAL: Abdomen soft, tender along her scar, worse with the left edge, no induration, fluctuance or palpable abnormality, no erythema, warmth. Nondistended. Bowel sounds present EXTREMITIES: No edema or joint tenderness. BACK: Nontender without deformity or crepitance. No flank tenderness. NEURO: AOx3. SKIN: No rash or erythema of visible areas Initial Vital Signs Initial Vital Signs: Vital Signs Temperature 97.3 F L 05/24/21 22:30 Pulse Rate 80 05/24/21 22:30 Respiratory Rate 18 05/24/21 22:30 Blood Pressure 118/73 05/24/21 22:30 Pulse Oximetry 97 05/24/21 22:30 Course Orders Ordered: ED Orders 05/24/21 23:47 Complete Blood Count AUTO DIFF Stat Comprehensive Metabolic Panel Stat Lipase Stat 05/24/21 23:55 Test Urine Stat Urine Microscopic Stat 05/25/21 00:42 CT abdomen pelvis w con Stat Discontinued Medications Hydrocodone Bitart/Acetaminophen (Hydrocodone/Acet 5/325 Prepack) 1 bottle MISC SEEINSTR ONE Stop: 05/25/21 02:39 Last Admin: 05/25/21 02:48 Dose: 1 bottle Documented by: ZARIA Sodium Chloride (Normal Saline 0.9%) 1,000 mls @ 150 mls/hr IV CONT KELLY Last Infusion: 05/25/21 03:12 Dose: 0 mls/hr Documented by: Admin: 05/24/21 23:59 Dose: 150 mls/hr Documented by: LUZ MARINA Ondansetron HCl (Ondansetron 4 Mg Odt Prepack) 1 bottle MISC SEEINSTR ONE Stop: 05/25/21 02:39 Last Admin: 05/25/21 02:48 Dose: 1 bottle Documented by: ZARIA Vital Signs Vital signs: Vital Signs - 8 hr 05/24/21 22:30 05/25/21 00:02 05/25/21 03:13 Temperature 97.3 F L Pulse Rate 80 84 76 Respiratory Rate 18 18 Blood Pressure 118/73 112/56 L 125/62 Pulse Oximetry 97 88 L 99 MDM - Abdominal Pain Lab Data Result diagrams: 05/24/21 23:47 05/24/21 23:47 Labs: Lab Results 05/24/21 05/24/21 05/24/21 Range/Units 23:47 23:47 23:55 WBC 8.3 (4.5-11.0) X10^3/uL RBC 4.24 (4.0-5.2) X10^6/uL Hgb 10.5 L (12.0-16.0) g/dL Hct 32.1 L (36-46) % MCV 75.8 L (80-100) fL MCH 24.9 L (26-34) PG MCHC 32.9 (30-36) % RDW 15.4 H (11.6-14.8) % Plt Count 371 (150-400) X10^3/uL Neut % (Auto) 59.0 (50-75) % Lymph % (Auto) 32.3 (25-40) % [place] % (Auto) 7.2 (3-14) % Eos % (Auto) 1.0 L (2-4) % Baso % (Auto) 0.5 (0-2) % Neut # (Auto) 4900 (3930-3329) /uL Lymph # (Auto) 2700 (9603-7869) /uL [place] # (Auto) 600 (0-900) /uL Eos # (Auto) 100 (0-450) /uL Baso # (Auto) 0 (0-100) /uL Sodium 140 (137-145) mmol/L Potassium 3.6 (3.4-5.1) mmol/L Chloride 107 (98-107) mmol/L Carbon Dioxide 26 (22-32) mmol/L BUN 17 (7-17) mg/dL Creatinine 0.83 (0.52-1.04) mg/dL Estimated GFR > 60.0 (>60) mL/min BUN/Creatinine Ratio 20.5 (6-22) Glucose 107 H (70-100) mg/dL Calcium 9.0 (8.4-10.2) mg/dL Total Bilirubin 0.3 (0.2-1.3) mg/dL AST 23 (14-36) IU/L ALT 19 (<35) IU/L Alkaline Phosphatase 79 (38-126) U/L Total Protein 6.9 (6.3-8.2) g/dL Albumin 4.1 (3.5-5.0) g/dL Globulin 2.8 (1.7-4.1) g/dL Albumin/Globulin Ratio 1.5 (1.0-2.8) Lipase 138 (23-300) U/L Urine RBC None seen (0-5/HPF) Urine WBC 1-5/hpf (0-5/HPF) Ur Squamous Epith Cells 1-5 /hpf (0-5/HPF) Urine Bacteria Occasional (0-1) (None) Ur Culture Indicated? Cult not indicated Urine Test (Negative) 05/24/21 Range/Units 23:55 WBC (4.5-11.0) X10^3/uL RBC (4.0-5.2) X10^6/uL Hgb (12.0-16.0) g/dL Hct (36-46) % MCV (80-100) fL MCH (26-34) PG MCHC (30-36) % RDW (11.6-14.8) % Plt Count (150-400) X10^3/uL Neut % (Auto) (50-75) % Lymph % (Auto) (25-40) % [place] % (Auto) (3-14) % Eos % (Auto) (2-4) % Baso % (Auto) (0-2) % Neut # (Auto) (0340-3897) /uL Lymph # (Auto) (1430-9288) /uL [place] # (Auto) (0-900) /uL Eos # (Auto) (0-450) /uL Baso # (Auto) (0-100) /uL Sodium (137-145) mmol/L Potassium (3.4-5.1) mmol/L Chloride (98-107) mmol/L Carbon Dioxide (22-32) mmol/L BUN (7-17) mg/dL Creatinine (0.52-1.04) mg/dL Estimated GFR (>60) mL/min BUN/Creatinine Ratio (6-22) Glucose (70-100) mg/dL Calcium (8.4-10.2) mg/dL Total Bilirubin (0.2-1.3) mg/dL AST (14-36) IU/L ALT (<35) IU/L Alkaline Phosphatase (38-126) U/L Total Protein (6.3-8.2) g/dL Albumin (3.5-5.0) g/dL Globulin (1.7-4.1) g/dL Albumin/Globulin Ratio (1.0-2.8) Lipase (23-300) U/L Urine RBC (0-5/HPF) Urine WBC (0-5/HPF) Ur Squamous Epith Cells (0-5/HPF) Urine Bacteria (None) Ur Culture Indicated? Urine Test Negative (Negative) Point of care testing: Urine Dip Bedside Urine Glucose Negative Bedside Urine Bilirubin - Negative Bedside Urine Ketone - Negative Urine Specific [place] 1.025 Bedside Urine Occult Blood - Negative Bedside Urine pH 6.0 Bedside Urine Protein + 30 Bedside Urine Urobilinogen - Negative Bedside Urine Nitrite - Negative Bedside Urine Leukocytes - Negative Esterase Imaging Data CT scan - abdomen/pelvis: Radiologist's Impression: [address] [address] [address] Scan Report Signed Patient: Ami Harvey MR#: [id number] : 2000 Acct:[id number] Age/Sex: 20 / F Date of Service: 05/25/21 Loc: ED Accession Number: [id number] ?? Procedure: CT abdomen pelvis w con Ordering Provider: Chandu Reed D.O. PROCEDURE:? CT ABDOMEN PELVIS W CON ? INDICATIONS:? abdominal pain ? TECHNIQUE:? After the administration of intravenous contrast, axial sections acquired from the lung bases to the pubic symphysis.? Coronal and sagittal reformats were performed.? For radiation dose reduction, the following was used:? automated exposure control, adjustment of mA and/or kV according to patient size.? ? COMPARISON:? [facility], US, US PELVIC COMPLETE, 05/15/2021, 2:48.? [facility], CT, CT ABDOMEN PELVIS W CON, 05/30/2018, 3:11. ? FINDINGS:? Image quality:? Excellent.? ? Lung bases:? Unremarkable. Heart:? No significant findings. ? ABDOMEN: Liver:? Unremarkable.? ? Gallbladder:? The gallbladder is contracted, which compromises evaluation. Biliary ducts:? Unremarkable.? ? Pancreas:? Unremarkable.? ? Spleen:? Unremarkable.? ? Adrenal Glands:? Unremarkable.? ? Kidneys and Ureters:? Unremarkable.? ? ? Stomach and Bowel:? Stomach, small bowel loops, and colon are unremarkable.? Peritoneum:? No abnormal intraperitoneal fluid.? Trace nonspecific free fluid is seen in the pelvis, which may be reactive. ? Ventral Wall: ? No hernias.? Subcutaneous edema/scarring is seen in the lower anterior abdominal wall. ? Abdominal Nodes:? No retroperitoneal or mesenteric adenopathy by size criteria.? Vessels:? Aorta and inferior vena cava are normal in size.? ? PELVIS: Pelvic Organs:? The uterus is normal in size.? The ovaries are symmetric.? ? Bladder:? Unremarkable.? ? Pelvic Nodes: No enlarged lymph nodes.? Miscellaneous: No hernias are seen. ? ? ? Bones:? Unremarkable.? IMPRESSION:? 1. No acute abnormality is identified in the abdomen or pelvis. 2. Trace free fluid in the pelvis is most likely physiologic. ? ? Dictated by: Raz Trevino M.D. on 05/25/2021 at 1:29 ? ? Approved by: Raz Trevino M.D. on 05/25/2021 at 1:39 ? MDM Narrative Medical decision making narrative: Multiple etiologies for patient's symptoms considered including: [Postsurgical complications such as infection, hematoma, retained foreign body versus bowel obstruction versus other Patient's symptoms improved over duration of stay with above-stated therapies. Findings and discharge diagnosis discussed with patient/family followed by verbalization of understanding Return precautions discussed with patient/family whom verbalize understanding. Discharge Plan Departure Patient Disposition: Home Clinical Impression: Abdominal pain Instructions: DI for Abdominal Pain-Adult Activity Restrictions/Additional Instructions: *You have been diagnosed with [acute on chronic abdominal pain. Your history, physical exam, labs and CT scan are very reassuring. There is no evidence of bowel obstruction, surgical complication, or other significant finding. *What to do: *Please continue to take your regular medications as directed. [ ] New medication prescriptions sent to your pharmacy: [ ] [ ] New medication written as a paper prescription [ ] No new medications given *Please follow up with your primary care provider in 2-3 days, call for an appointment. Let them know you were seen in the Emergency Department and that we ask that you be seen in follow up. We will electronically transmit a record of today's note if your PCP is in our system *If you do not have a primary care provider please contact the [facility] Resource line at [phone]. They will ask some questions about your medical history and help get you set up with a doctor in the community. *Return to Emergency Department if you should have any new, worsening or concerning symptoms, such as [fever greater than 101 F, shaking chills, worsening pain, persistent vomiting or other bothersome symptoms] Prescriptions: No Action valacyclovir [Valtrex] 500 mg tablet 500 mg PO BID Qty: 10 2RF Rx Instructions: Take 1 tablet twice daily for 5 days at onset of symptoms/lesion. hydrocodone-acetaminophen 5-325 mg tablet 1 tab PO Q4-6H PRN (Reason: pain) Qty: 20 0RF amoxicillin-pot clavulanate [Augmentin] 875-125 mg tablet 1 tab PO BID Qty: 10 0RF medroxyprogesterone [Depo-Provera] 150 mg/mL suspension 150 mg IM [id number] Qty: 1 3RF Rx Instructions: Next due Jul 22-Aug 05 2021 clindamycin HCl 300 mg capsule 300 mg PO QID Qty: 40 0RF oxycodone-acetaminophen [Percocet] 5-325 mg tablet 1 tab PO Q6H PRN (Reason: pain) Qty: 10 0RF PNV 119-iron fum-folic acid 29 mg iron- 1 mg tablet 1 tab PO DAILY Qty: 60 2RF Referrals: Ifeoma Braswell MD [Primary Care Provider] -
[2021-05-24] MEDS: SODIUM CHLORIDE 0.9% 1,000 ML 150 ML IV (23:59)
[2021-05-25 00:02] VITALS: BP 112/56; PULSE 84; O2SAT 88
[2021-05-25 00:07] LABS: Alanine Aminotransferase 19 IU/L (<35); Albumin 4.1 g/dL (3.5-5.0); Albumin Globulin Ratio 1.5 (1.0-2.8); Alkaline Phosphatase 79 U/L (38-126); Aspartate Aminotransferase 23 IU/L (14-36); BUN Creatinine Ratio 20.5 (6-22); Bilirubin Total 0.3 mg/dL (0.2-1.3); Blood Urea Nitrogen 17 mg/dL (7-17); Carbon Dioxide 26 mmol/L (22-32); Chloride 107 mmol/L (98-107); Estimated Glomerular Filt Rate > 60.0 mL/min (>60); Globulin 2.8 g/dL (1.7-4.1); Glucose 107 mg/dL (70-100); HEMOLYSIS < 15 (0-50); Lipase 138 U/L (23-300); Potassium 3.6 mmol/L (3.4-5.1); Sodium 140 mmol/L (137-145); Total Protein 6.9 g/dL (6.3-8.2)
[2021-05-25 00:11] LABS: Add Manual Diff / Slide Review NO; Basophils Absolute Auto 0 /uL (0-100); Basophils Percent Auto 0.5 % (0-2); Eosinophils Absolute Auto 100 /uL (0-450); Hematocrit 32.1 % (36-46); Hemoglobin 10.5 g/dL (12.0-16.0); Lymphocytes Absolute Auto 2700 /uL (1100-4500); Lymphocytes Percent Auto 32.3 % (25-40); Mean Corpuscular HGB Conc 32.9 % (30-36); Mean Corpuscular Hemoglobin 24.9 PG (26-34); Mean Corpuscular Volume 75.8 fL (80-100); Monocytes Absolute Auto 600 /uL (0-900); Monocytes Percent Auto 7.2 % (3-14); Neutrophils Absolute Auto 4900 /uL (1500-7000); Platelet Count 371 X10^3/uL (150-400); Red Blood Cell Count 4.24 X10^6/uL (4.0-5.2); Red Cell Distribution Width 15.4 % (11.6-14.8); White Blood Cell Count 8.3 X10^3/uL (4.5-11.0)
[2021-05-25 00:40] LABS: Bacteria Urine Occasional (0-1); Culture Indicated Urine Cult Not Indicated; RBC Urine None Seen (0-5/HPF); Squamous Epithelial Cell Urine 1-5 /HPF (0-5/HPF); WBC Urine 1-5/HPF (0-5/HPF)
--- NOTE | 2021-05-25 00:42 | DI.CT.S_ITS ---
PROCEDURE: CT ABDOMEN PELVIS W CON INDICATIONS: abdominal pain TECHNIQUE: After the administration of intravenous contrast, axial sections acquired from the lung bases to the pubic symphysis. Coronal and sagittal reformats were performed. For radiation dose reduction, the following was used: automated exposure control, adjustment of mA and/or kV according to patient size. COMPARISON: [facility], US, US PELVIC COMPLETE, 05/15/2021, 2:48. [facility], CT, CT ABDOMEN PELVIS W CON, 05/30/2018, 3:11. FINDINGS: Image quality: Excellent. Lung bases: Unremarkable. Heart: No significant findings. ABDOMEN: Liver: Unremarkable. Gallbladder: The gallbladder is contracted, which compromises evaluation. Biliary ducts: Unremarkable. Pancreas: Unremarkable. Spleen: Unremarkable. Adrenal Glands: Unremarkable. Kidneys and Ureters: Unremarkable. Stomach and Bowel: Stomach, small bowel loops, and colon are unremarkable. Peritoneum: No abnormal intraperitoneal fluid. Trace nonspecific free fluid is seen in the pelvis, which may be reactive. Ventral Wall: No hernias. Subcutaneous edema/scarring is seen in the lower anterior abdominal wall. Abdominal Nodes: No retroperitoneal or mesenteric adenopathy by size criteria. Vessels: Aorta and inferior vena cava are normal in size. PELVIS: Pelvic Organs: The uterus is normal in size. The ovaries are symmetric. Bladder: Unremarkable. Pelvic Nodes: No enlarged lymph nodes. Miscellaneous: No hernias are seen. Bones: Unremarkable. IMPRESSION: 1. No acute abnormality is identified in the abdomen or pelvis. 2. Trace free fluid in the pelvis is most likely physiologic. Dictated by: Raz Trevino M.D. on 05/25/2021 at 1:29 Approved by: Raz Trevino M.D. on 05/25/2021 at 1:39
[2021-05-25 01:01] LABS: Pregnancy Test Urine Negative (Negative)
[2021-05-25] MEDS: ONDANSETRON 4 MG ODT PREPACK 1 BOTTLE MISC (02:48)
[2021-05-25] MEDS: HYDROCODONE/ACET 5/325 PREPACK 1 BOTTLE MISC (02:48)
[2021-05-25 03:13] VITALS: BP 125/62; PULSE 76; RESP 18; O2SAT 99
== END 2021-05-25 03:14 | disposition home or self-care (01) ==
PROVIDERS: Emergency Provider Emergency Medicine; PCP Obstetrics & Gynecology
DX: R10.30 Lower abdominal pain, unspecified (principal)
CPT/HCPCS: 36415; 74177; 80053; 81003; 81015; 81025; 83690; 85025; 96360; 96361; 99284; Q9967

== ENCOUNTER 2021-05-31 03:42 | Emergency (ER) | payer OTHER, MEDICAID, SELFPAY ==
[2021-05-31 03:45] VITALS: BP 135/87; PULSE 80; RESP 18; TEMP 36.4; O2SAT 100
--- NOTE | 2021-05-31 03:56 | ED_ITS ---
HPI - General Adult General Chief complaint: Urogenital-Female Stated complaint: abd pain/frequent urinating x1 day Time Seen by Provider: 05/31/21 03:44 Source: patient Mode of arrival: Ambulatory Limitations: no limitations History of Present Illness HPI narrative: Patient is a 20-year-old female. Since her a couple months ago she has had quite a bit issues with pelvic pain and urinary frequency and irritation. Has been seen multiple times in the past here in the emergency department and with her OBGYN provider. Has been treated for a presumed urinary tract infection. Is being treated for a herpes infection. Has had ultrasounds and CT scans of her pelvis. There has been no identified source of her symptoms. She received a prescription for a medication from her revenue investigator provider just recently. She states she is unsure with the name of it was but she was told that as for bladder spasms and that she was told it would turn her urine a bright yellow color. This fits a description of a medicine called peridium. She states that she continues to have urinary frequency and urgency. She states that when she urinates very off and only small amount comes out. She is having burning and irritation in her vaginal area she states this is because of all of the urination that she is having. She states that she is having problems with work because she is urinating so much. She returns the emergency department this morning for evaluation of the symptoms. Related Data Previous Rx's Medication Instructions Recorded vitamins no.119-iron 1 tab PO DAILY #60 tab 08/29/20 fumarate 29 mg-folic acid 1 mg tablet hydrocodone 5 mg-acetaminophen 325 1 tab PO Q4-6H PRN #20 tab 04/11/21 mg tablet amoxicillin 875 mg-potassium 1 tab PO BID #10 tab 05/06/21 clavulanate 125 mg tablet (Augmentin) medroxyprogesterone 150 mg/mL 150 mg IM [id number] #1 ml 05/06/21 intramuscular suspension (Depo-Provera) clindamycin HCl 300 mg capsule 300 mg PO QID #40 cap 05/15/21 oxycodone-acetaminophen 5 mg-325 1 tab PO Q6H PRN #10 tab 05/15/21 mg tablet (Percocet) valacyclovir 500 mg tablet 500 mg PO BID #10 tab 05/23/21 (Valtrex) valacyclovir 1 gram tablet 1,000 mg PO BID 10 Days #20 tab 05/27/21 phenazopyridine 100 mg tablet 100 mg PO TID PRN #6 tab 05/30/21 (Pyridium) lidocaine 5 % topical ointment 1 applic TOPICAL TID PRN #30 g 05/31/21 tolterodine 2 mg tablet (Detrol) 2 mg PO BID #60 tab 05/31/21 Allergies Allergy/AdvReac Type Severity Reaction Status Date / Time No Known Drug Allergies Allergy Verified 05/22/21 11:18 Review of Systems Constitutional Constitutional: Reports system reviewed and no additional complaints, except as documented Gastrointestinal Gastrointestinal: Reports as per HPI and Reports system reviewed and no additional complaints, except as documented Genitourinary Genitourinary: Reports system reviewed and no additional complaints, except as documented and Reports as per HPI Hematologic/Lymphatic On Anticoagulants: No Patient History Medical History Healthy adult Surgical History No pertinent past surgical history Status post section Family History Mother No problems noted. Father No problems noted. Grandmother No problems noted. Grandfather No problems noted. Grandmother No problems noted. Grandfather No problems noted. Brother No problems noted. Sister No problems noted. 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 [employer] : aware and precautions feliciano/synagogue: [employer] special feliciano needs: No seatbelt use: always helmet use: Yes Smoking Status: Never smoker second hand exposure: No alcohol intake: never substance use type: does not use and marijuana during the past year weight has: remained stable well-balanced diet: daily or most days daily servings fruits/ve-4 caffeine: Yes eating out: 1-3 times/week Smoking Status: Never smoker alcohol intake frequency: other Substance Use Type: does not use Exam Initial Vital Signs Initial Vital Signs: Vital Signs Temperature 97.5 F L 05/31/21 03:45 Pulse Rate 80 05/31/21 03:45 Respiratory Rate 18 05/31/21 03:45 Blood Pressure 135/87 05/31/21 03:45 Pulse Oximetry 100 05/31/21 03:45 Const General: cooperative and healthy appearing [facility] Head: normal to inspection and normocephalic Resp Effort & Inspection: normal respiratory effort Cardio Rate: regular rate GI Inspection: normal to inspection Neuro General: patient alert, patient awake and moves all extremities Extrem General: capillary refill normal Psych Appearance: grossly normal Course Orders Ordered: Discontinued Medications Ibuprofen (Ibuprofen 400 Mg Tablet) 400 mg PO NOW ONE Stop: 05/31/21 04:08 Last Admin: 05/31/21 04:13 Dose: 400 mg Documented by: Lidocaine HCl (Lidocaine 2% (Glydo) 6 Ml Gel) 6 ml TOP NOW ONE Stop: 05/31/21 04:08 Last Admin: 05/31/21 04:13 Dose: 6 ml Documented by: Vital Signs Vital signs: Vital Signs - 8 hr 05/31/21 03:45 Temperature 97.5 F L Pulse Rate 80 Respiratory Rate 18 Blood Pressure 135/87 Pulse Oximetry 100 Medical Decision Making MDM Narrative Medical decision making narrative: Patient has had a fairly extensive workup recently to include ultrasounds and CT scans. Review of her medical record shows that her last urinalysis did not show any signs of infection. She is currently being treated for herpes infection. Unfortunately I do not feel there was much more that the emergency department can offer other than some symptom control. The medication that she describes that she was prescribed today fits the description of peridium. She is still having quite a bit of urinary urgency and frequency. I will switch this to Detrol to see if this does not improve some of her urinary symptoms. She does need to follow-up with her revenue investigator provider and of her revenue investigator providers unable to provide any more assistance than she should follow-up with urology. She was given the number for the urologist group here at the hospital. She can take Ty lenol/ibuprofen for discomfort. No indication for opioid medications. was given a prescription for some lidocaine jelly as this may help with the irritation that she is describing secondary to the urination. She is given return precautions. She expressed understanding. Discharge Plan Departure Patient Disposition: Home Clinical Impression: Urinary frequency, Abdominal pain, Pelvic pain Instructions: Chronic Pelvic Pain-Female Activity Restrictions/Additional Instructions: You have had a fairly extensive workup out of the emergency department over your past several visits. The next step in you workup either needs to come from your maitre d or a urologist. I do recommend you contact your maitre d for follow-up and you can contact the urologist here at the hospital the number provided below to schedule a follow-up visit. Upon to start you on 2 medications. One is a medicine to try to help with the bladder spasms. Please take it as directed. The other is a numbing medication/jelly that you can please externally on your vagina. This may help with the irritation. You can take Tylenol/ibuprofen for any discomfort. Prescriptions: New lidocaine 5 % ointment 1 applic topical TID PRN (Reason: skin irritation) Qty: 30 0RF tolterodine [Detrol] 2 mg tablet 2 mg PO BID Qty: 60 0RF No Action valacyclovir [Valtrex] 500 mg tablet 500 mg PO BID Qty: 10 2RF Rx Instructions: Take 1 tablet twice daily for 5 days at onset of symptoms/lesion. valacyclovir 1 gram tablet 1,000 mg PO BID 10 Days Qty: 20 0RF phenazopyridine [Pyridium] 100 mg tablet 100 mg PO TID PRN (Reason: pain) Qty: 6 0RF hydrocodone-acetaminophen 5-325 mg tablet 1 tab PO Q4-6H PRN (Reason: pain) Qty: 20 0RF amoxicillin-pot clavulanate [Augmentin] 875-125 mg tablet 1 tab PO BID Qty: 10 0RF medroxyprogesterone [Depo-Provera] 150 mg/mL suspension 150 mg IM [id number] Qty: 1 3RF Rx Instructions: Next due Jul 22-Aug 05 2021 clindamycin HCl 300 mg capsule 300 mg PO QID Qty: 40 0RF oxycodone-acetaminophen [Percocet] 5-325 mg tablet 1 tab PO Q6H PRN (Reason: pain) Qty: 10 0RF PNV 119-iron fum-folic acid 29 mg iron- 1 mg tablet 1 tab PO DAILY Qty: 60 2RF Referrals: Ifeoma Braswell MD [Primary Care Provider] - Renny Perez MD [Physician] -
[2021-05-31] MEDS: IBUPROFEN 400 MG TABLET PO (04:13)
[2021-05-31] MEDS: LIDOCAINE 2% (GLYDO) 6 ML GEL TOP (04:13)
--- NOTE | 2021-05-31 04:20 | PC.NURSE ---
Vaginal exam deferred to DR Pizarro.
--- NOTE | 2021-05-31 16:10 | PC.NURSE ---
Pt called stating that detrol prescription did not arrive at [facility] although it reflects received in our system. I called the prescription into [facility]. Encouraged pt to f/u as needed and indicated and return for any needs, concerns, worsening of symptoms.
== END 2021-05-31 04:15 | disposition home or self-care (01) ==
PROVIDERS: Emergency Provider Emergency Medicine; PCP Obstetrics & Gynecology
DX: O90.89 Other complications of the puerperium, not elsewhere classified (principal); R35.0 Frequency of micturition; R10.9 Unspecified abdominal pain; R10.2 Pelvic and perineal pain
CPT/HCPCS: 99282; 99283

== ENCOUNTER → 2021-06-26 08:49 | Outpatient (CLI) | payer OTHER, MEDICAID, SELFPAY ==
[2021-06-27 17:16] LABS: Candida species Negative (Negative); Gardnerella vaginalis Negative (Negative); Trichomoas vaginalis Negative (Negative)
== END ==
PROVIDERS: PCP Obstetrics & Gynecology; Visit Provider Obstetrics & Gynecology
DX: N89.8 Other specified noninflammatory disorders of vagina (principal)
CPT/HCPCS: 81002; 87480; 87510; 87660

== ENCOUNTER 2022-03-12 16:04 | Emergency (ER) | payer OTHER, MEDICAID, SELFPAY ==
[2022-03-12 16:07] VITALS: BP 114/71; PULSE 94; RESP 20; TEMP 36.3; O2SAT 97; BMI 23.6
--- NOTE | 2022-03-12 17:46 | ED.FEMALEGU ---
HPI - Female Genitourinary <TALISHA Salas - Last Filed: 03/12/22 20:28> General Chief complaint: Urogenital-Female Stated complaint: vaginal discomfort Time Seen by Provider: 03/12/22 17:30 Source: patient Mode of arrival: Ambulatory History of Present Illness HPI Narrative: This is a 21-year-old female presents to the emergency department complaining of abnormal vaginal discharge, pain in her vagina and with urination. She denies any vaginal pruritus, denies any significant discharge. 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 She denies any history of other STIs. She denies any abdominal pain or flank pain, states that she has urinary urgency and frequency. Patient states that she completed a course of Valtrex and had no improvement of her symptoms recently. Patient states that she thinks she has contracted an STD. Related Data Previous Rx's Medication Instructions Recorded medroxyprogesterone 150 mg/mL 150 mg IM [id number] #1 mL 05/06/21 intramuscular suspension (Depo-Provera) oxybutynin chloride 5 mg tablet 5 mg PO BID-TID PRN bladder spasms 06/07/21 #90 tabs valacyclovir 500 mg tablet 500 mg PO BID #14 tabs 03/07/22 doxycycline hyclate 100 mg tablet 100 mg PO BID 7 days #14 tabs 03/12/22 metronidazole 500 mg tablet 500 mg PO BID 7 days #14 tabs 03/12/22 phenazopyridine 100 mg tablet 100 mg PO TID PRN urinary pain 6 03/12/22 (Pyridium) doses #7 tabs Allergies Allergy/AdvReac Type Severity Reaction Status Date / Time No Known Drug Allergies Allergy Verified 11/19/21 15:40 Review of Systems <TALISHA Salas - Last Filed: 03/12/22 20:28> Review of Systems Narrative: Review of systems is negative for acute abnormalities unless otherwise noted in HPI Patient History <TALISHA Salas - Last Filed: 03/12/22 20:28> Medical History Dysuria Healthy adult Pain on voiding Surgical History No pertinent past surgical history Status post section Family History Mother No problems noted. Father No problems noted. Grandmother No problems noted. Grandfather No problems noted. Grandmother No problems noted. Grandfather No problems noted. Brother No problems noted. Sister No problems noted. alcohol intake frequency: other Substance Use Type: does not use Exam <TALISHA Salas - Last Filed: 03/12/22 20:28> Narrative Exam Narrative: Reviewed vitals signs and nursing notes. General: cooperative, comfortable, in no acute distress, well groomed HEENT: symmetrical facial expressions, moist mucous membranes Cardiovascular: regular rate and rhythm, no peripheral edema, warm extremities Respiratory: normal effort, able to speak in complete sentences, without wheezing, stridor, or abnormal breath sounds. No retractions or tachypnea. GI: abdomen soft, nontender to palpation, nondistended, without masses, rebound tenderness or exquisite tenderness with exam. MSK: moves all extremities, neurovascularly intact, no weakness, normal tone : Pelvic exam completed, vaginal tenderness with exam, vaginal discharge is white, no rash, lesions, adnexal tenderness with exam Skin: brisk capillary refill, without pallor or erythema Neuro: normal speech and cognition, A&O x3, ambulatory, clear speech Psych: mental status is grossly normal, congruent mood, normal affect, pleasant and cooperative Initial Vital Signs Initial Vital Signs: Vital Signs Temperature 97.4 F L 03/12/22 16:07 Pulse Rate 94 H 03/12/22 16:07 Respiratory Rate 20 03/12/22 16:07 Blood Pressure 114/71 03/12/22 16:07 Pulse Oximetry 97 03/12/22 16:07 Oxygen Delivery Method 03/12/22 16:07 <Ronel Hubbard DO - Last Filed: 03/13/22 05:17> Initial Vital Signs Initial Vital Signs: Vital Signs Temperature 97.4 F L 03/12/22 16:07 Pulse Rate 94 H 03/12/22 16:07 Respiratory Rate 20 03/12/22 16:07 Blood Pressure 114/71 03/12/22 16:07 Pulse Oximetry 97 03/12/22 16:07 Oxygen Delivery Method 03/12/22 16:07 Course <TALISHA Salas - Last Filed: 03/12/22 20:28> Orders Ordered: Discontinued Medications Ceftriaxone Sodium (Ceftriaxone 1,000 Mg Vial) 500 mg IM NOW ONE Stop: 03/12/22 19:38 Last Admin: 03/12/22 19:44 Dose: 500 mg Documented By: LEONARD Doxycycline Hyclate (Doxycycline Hyclate 100 Mg Tablet) 100 mg PO NOW ONE Stop: 03/12/22 19:38 Last Admin: 03/12/22 19:44 Dose: 100 mg Documented By: LEONARD Lidocaine HCl (Lidocaine 1% (Pf) 5 Ml) 2.1 ml INJ NOW ONE Stop: 03/12/22 19:38 Last Admin: 03/12/22 19:44 Dose: 2.1 ml Documented By: LEONARD Vital Signs Vital signs: Vital Signs - 8 hr 03/12/22 16:07 03/12/22 19:54 Temperature 97.4 F L Pulse Rate 94 H 61 Respiratory Rate 20 16 Blood Pressure 114/71 122/74 Pulse Oximetry 97 99 Oxygen Delivery Method Room Air Room Air <Ronel Hubbard DO - Last Filed: 03/13/22 05:17> Orders Ordered: Discontinued Medications Ceftriaxone Sodium (Ceftriaxone 1,000 Mg Vial) 500 mg IM NOW ONE Stop: 03/12/22 19:38 Last Admin: 03/12/22 19:44 Dose: 500 mg Documented By: LEONARD Doxycycline Hyclate (Doxycycline Hyclate 100 Mg Tablet) 100 mg PO NOW ONE Stop: 03/12/22 19:38 Last Admin: 03/12/22 19:44 Dose: 100 mg Documented By: LEONARD Lidocaine HCl (Lidocaine 1% (Pf) 5 Ml) 2.1 ml INJ NOW ONE Stop: 03/12/22 19:38 Last Admin: 03/12/22 19:44 Dose: 2.1 ml Documented By: LEONARD Vital Signs Vital signs: Vital Signs - 8 hr 03/12/22 16:07 03/12/22 19:54 Temperature 97.4 F L Pulse Rate 94 H 61 Respiratory Rate 20 16 Blood Pressure 114/71 122/74 Pulse Oximetry 97 99 Oxygen Delivery Method Room Air Room Air MDM - Female Genitourinary <TALISHA Salas - Last Filed: 03/12/22 20:28> Lab Data Lab results narrative: Name: Ami Harvey Age/Sex: 21/F Attend Dr: Dora Steen Unit#: [id number] : 2000Location: ED Re03/12/22 Disch: Status: REG ER SPEC #: [id number] HARISH: 03/12/22 STATUS: COMP REQ #: [id number] SPDESC: RECD: 03/12/22-[address]: Dora Steen SOURCE: Vaginal ENTR: 03/12/[address]: Alma Clements MD FAX TO: ORDERED: Wet Prep Procedure Result Verified Site Wet Prep Tric BV Judith Final 03/12/22-1806 White blood cells Occasional WBC seen Clue cells: None seen Yeast: None seen Trichomonas: None seen Labs: Lab Results 03/12/22 03/12/22 Range/Units 16:10 16:10 Urine RBC None seen (0-5/HPF) Urine WBC None seen (0-5/HPF) Amorphous Sediment 1+ Urine Bacteria None seen (None) Urine Mucus 1+ H (Negative) Ur Culture Indicated? Cult not indicated Ur Chlamydia DNA (PCR) Not detected N gonorrhoeae DNA (PCR) Not detected Point of Care Testing Test Results Negative Urine Dip Bedside Urine Glucose 250 mg/dl Bedside Urine Bilirubin - Negative Bedside Urine Ketone - Negative Urine Specific [place] 1.025 Bedside Urine Occult Blood - Negative Bedside Urine pH 6.0 Bedside Urine Protein +/- 15 Bedside Urine Urobilinogen - Negative Bedside Urine Nitrite - Negative Bedside Urine Leukocytes - Negative Esterase MDM Narrative Medical decision making narrative: This is a 21-year-old female presents to the emergency department with concern about isaac an STD was encouraged to come here for a gonorrhea and chlamydia test. Unfortunately the wait time was over 5 hours for her, a UA was obtained which only shows mucus, no bacteria, was negative for leukocytes, RBCs. A pelvic exam was completed and patient had tenderness to all of her vaginal tissue, there was white discharge present and patient had adnexa tenderness. Concerning for chlamydia versus bacterial vaginosis, wet mount was obtained which was only positive for WBCs. Urine gonorrhea and chlamydia took approximately 3 hours to result and the patient was discharged home prior to this, we discussed treatment options at length and she opted to receive treatment for chlamydia without knowing if her tests were negative or not since she has had these symptoms for a few days now. She was given 500 mg of ceftriaxone IM and doxycycline 100 mg, encouraged to stay hydrated, follow up with her primary care provider for a test of cure. She is not , gonorrhea and chlamydia came back negative. Called the patient and let her know that she does not need to picker tender the doxycycline but since she had symptoms, prescribed her Flagyl 500 mg b.i.d. for 7 days for vaginitis. Encouraged her to follow-up for a test of cure and to return if she has any worsening of her symptoms. <Ronel Hubbard, DO - Last Filed: 03/13/22 05:17> Lab Data Labs: Lab Results 03/12/22 03/12/22 Range/Units 16:10 16:10 Urine RBC None seen (0-5/HPF) Urine WBC None seen (0-5/HPF) Amorphous Sediment 1+ Urine Bacteria None seen (None) Urine Mucus 1+ H (Negative) Ur Culture Indicated? Cult not indicated Ur Chlamydia DNA (PCR) Not detected N gonorrhoeae DNA (PCR) Not detected Point of Care Testing Test Results Negative Urine Dip Bedside Urine Glucose 250 mg/dl Bedside Urine Bilirubin - Negative Bedside Urine Ketone - Negative Urine Specific [place] 1.025 Bedside Urine Occult Blood - Negative Bedside Urine pH 6.0 Bedside Urine Protein +/- 15 Bedside Urine Urobilinogen - Negative Bedside Urine Nitrite - Negative Bedside Urine Leukocytes - Negative Esterase Discharge Plan Departure Patient Disposition: Home Clinical Impression: Vaginitis Qualifiers: Chronicity: acute Qualified Code(s): N76.0 - Acute vaginitis Activity Restrictions/Additional Instructions: *You have been diagnosed with this is likely chlamydia please finish her antibiotics, stay hydrated and drink plenty of fluids, you may take the Pyridium for burning and pressure sensation in your pelvic region. Please follow-up with your primary care provider for a test of cure, please return to the emergency department for any worsening of your symptoms. Hope start feeling better soon, I am sorry for your long wait. Take ibuprofen and/or Tylenol for your pain. *What to do: *Please continue to take your regular medications as directed. [x ] New medication prescriptions sent to your pharmacy: [[facility]] [ ] New medication written as a paper prescription [ ] No new medications given *Please follow up with your primary care provider in 2-3 days, call for an appointment. Let them know you were seen in the Emergency Department and that we asked that you be seen for follow-up. We will electronically transmit a record of today's note if your PCP is in our system *If you do not have a primary care provider please contact [phone] to establish care with one of the [facility] primary care providers. *Return to Emergency Department if you should have any new, worsening, or concerning symptoms, such as [fever greater than 101F, chills, worsening pain, persistent vomiting or other bothersome symptoms]. Prescriptions: New doxycycline hyclate 100 mg tablet 100 mg PO BID 7 Days Qty: 14 0RF phenazopyridine [Pyridium] 100 mg tablet 100 mg PO TID PRN (Reason: urinary pain) Qty: 7 0RF metronidazole 500 mg tablet 500 mg PO BID 7 Days Qty: 14 0RF No Action oxybutynin chloride 5 mg tablet 5 mg PO BID-TID PRN (Reason: bladder spasms) Qty: 90 3RF valacyclovir 500 mg tablet 500 mg PO BID Qty: 14 1RF medroxyprogesterone [Depo-Provera] 150 mg/mL suspension 150 mg IM [id number] Qty: 1 3RF Rx Instructions: Next due Jul 22-Aug 05 2021 Referrals: Alma Clements MD [Primary Care Provider] - Visit Report Forms: Patient Portal/API <Ronel Hubbard, - Last Filed: 03/13/22 05:17> [facility] Brit Attestation: I was immediately available in the department for consultation. Documentation has been reviewed. I agree with assessment and plan.
[2022-03-12 18:10] LABS: Amorphous Sediment Urine 1+; Bacteria Urine None Seen; Culture Indicated Urine Cult Not Indicated; Mucus Urine 1+ (Negative); RBC Urine None Seen (0-5/HPF); WBC Urine None Seen (0-5/HPF)
[2022-03-12] MEDS: LIDOCAINE 1% (PF) 5 ML 2.1 ML INJ (19:44)
[2022-03-12] MEDS: DOXYCYCLINE HYCLATE 100 MG TABLET PO (19:44)
[2022-03-12] MEDS: cefTRIAXone 1,000 MG VIAL 500 MG IM (19:44)
[2022-03-12 19:54] VITALS: BP 122/74; PULSE 61; RESP 16; O2SAT 99
[2022-03-12 19:58] LABS: Urine N gonorrhoeae NOT DETECTED
[2022-03-12 20:02] LABS: Urine Chlamydia NOT DETECTED
== END 2022-03-12 19:54 | disposition home or self-care (01) ==
PROVIDERS: Emergency Provider Nurse Practitioner Critical Care Medicine; PCP Family Medicine
DX: N76.0 Acute vaginitis (principal)
CPT/HCPCS: 81003; 81015; 81025; 87210; 87491; 87591; 96372; 99283; J0696

== ENCOUNTER → 2022-03-18 11:33 | Outpatient (CLI) | payer OTHER, MEDICAID, SELFPAY ==
[2022-03-18 13:12] LABS: Hepatitis B Surface Antigen NEGATIVE s/c (NEGATIVE)
[2022-03-18 13:28] LABS: HIV 1 & 2 Ab/Ag 4th Gen Combo NEGATIVE (NEGATIVE); Hep C Virus Ab w/Reflex Quant NEGATIVE s/c (NEGATIVE)
[2022-03-18 13:51] LABS: Appearance Urine UA CLOUDY; Bilirubin Urine UA NEGATIVE (NEGATIVE); Color Urine UA YELLOW; Glucose Urine UA 1+ g/dL (Negative); Ketones Urine UA TRACE (NEGATIVE); Leukocyte Esterase Urine UA NEGATIVE (NEGATIVE); Nitrite Urine UA NEGATIVE (Negative); Occult Blood Urine UA NEGATIVE (Negative); Protein Urine UA TRACE (Negative); Specific Gravity Urine UA 1.025 (1.000-1.035); Urobilinogen Urine UA 0.2 E.U./dL (0.2)
[2022-03-18 14:00] LABS: Amorphous Sediment Urine 4+; Bacteria Urine None Seen; Culture Indicated Urine Cult Not Indicated; RBC Urine None Seen (0-5/HPF); WBC Urine None Seen (0-5/HPF)
[2022-03-19 07:09] LABS: RPR Screen Non Reactive (Non Reactive)
== END ==
PROVIDERS: PCP Family Medicine; Referring Provider Family Medicine; Visit Provider Family Medicine
DX: Z11.3 Encounter for screening for infections with a predominantly sexual mode of transmission (principal); R30.0 Dysuria
CPT/HCPCS: 36415; 81001; 86592; 86803; 87077; 87086; 87186; 87340; 87389

== ENCOUNTER 2022-03-27 16:12 | Emergency (ER) | payer OTHER, MEDICAID, SELFPAY ==
[2022-03-27 16:22] VITALS: BP 108/63; PULSE 91; RESP 16; TEMP 36.9; O2SAT 98; BMI 23.8
--- NOTE | 2022-03-27 18:21 | ED.FEMALEGU ---
HPI - Female Genitourinary <Shukri Soto PA-C - Last Filed: 03/27/22 19:17> General Chief complaint: Urogenital-Female Stated complaint: Burning sensation when peeing, Tender Time Seen by Provider: 03/27/22 17:46 History of Present Illness HPI Narrative: This is a 21-year-old female presents to the emergency department complaining of vaginal irritation for last 3-4 days. States that ?it dumont when anything touches it?. Unable to examine for any possible rashes. Denies any purulent discharge. States that she is not have any abdominal pain, nausea, vomiting, or any other concerning signs or symptoms. Related Data Previous Rx's Medication Instructions Recorded medroxyprogesterone 150 mg/mL 150 mg IM [id number] #1 mL 05/06/21 intramuscular suspension (Depo-Provera) oxybutynin chloride 5 mg tablet 5 mg PO BID-TID PRN bladder spasms 06/07/21 #90 tabs phenazopyridine 100 mg tablet 100 mg PO TID PRN urinary pain 6 03/12/22 (Pyridium) doses #7 tabs valacyclovir 1 gram tablet 1,000 mg PO BID PRN vulvar lesion 03/14/22 7 days #14 tabs nitrofurantoin 100 mg PO Q12H 5 days #10 caps 03/24/22 monohydrate/macrocrystals 100 mg capsule (Macrobid) fluconazole 150 mg tablet 150 mg PO Q3D 2 doses #2 tabs 03/26/22 (Diflucan) hydrocortisone 1 % topical cream 1 applic topical TID PRN skin 03/27/22 irritation #28.35 grams Allergies Allergy/AdvReac Type Severity Reaction Status Date / Time No Known Drug Allergies Allergy Verified 11/19/21 15:40 Review of Systems <Shukri Soto PA-C - Last Filed: 03/27/22 19:17> Review of Systems Narrative: GENERAL: Denies chills, fatigue, malaise, fever, sweats. HEENT: Denies sinus pain, ear pain, sore throat, difficulty swallowing, dizziness. RESPIRATORY: Denies dyspnea, cough, wheezing, hemoptysis, sputum. CARDIOVASCULAR: Denies chest pain, palpitations, orthopnea, edema, GASTROINTESTINAL: Denies nausea, vomiting, abdominal pain, diarrhea, constipation, melena. : Denies dysuria, frequency, incontinence, hematuria, urinary retention. MUSCULOSKELETAL: denies weakness, joint pain, or bony pain SKIN: Denies rash, skin lesions, or other NEUROLOGIC: Denies weakness, headache, numbness, change in speech, confusion, seizures, incoordination. PSYCHIATRIC: No concerning psychosocial issues. : REPORTS VAGINAL IRRITATION 12 point review of systems is negative except for those stated above Patient History <Shukri Soto PA-C - Last Filed: 03/27/22 19:17> Medical History Dysuria Healthy adult Pain on voiding Surgical History No pertinent past surgical history Status post section Family History Mother No problems noted. Father No problems noted. Grandmother No problems noted. Grandfather No problems noted. Grandmother No problems noted. Grandfather No problems noted. Brother No problems noted. Sister No problems noted. alcohol intake frequency: other Substance Use Type: does not use Exam <Shukri Soto PA-C - Last Filed: 03/27/22 19:17> Narrative Exam Narrative: GENERAL: Well-developed patient, in mild distress. HEAD: Atraumatic. Normocephalic. EYES: Pupils equal round and reactive. Extraocular motions intact. No scleral icterus. No injection or drainage. ENT: Nose without bleeding, purulent drainage. Throat without erythema, tonsillar hypertrophy or exudate. Airway patent. NECK: Trachea midline. Non tender CARDIOVASCULAR: Regular rate and rhythm without murmurs, gallops, or rubs. RESPIRATORY: Clear to auscultation. Breath sounds equal bilaterally. No wheezes, rales, or rhonchi. GASTROINTESTINAL: Abdomen soft, non-tender, nondistended. EXTREMITIES: No edema or joint tenderness. BACK: Nontender without deformity or crepitance. No flank tenderness. NEURO: AOx3. SKIN: No rash or erythema of visible areas : Performed with life sciences teacher in room. No visible lesions to the external genitalia. Some milky white discharge in the vaginal vault. Initial Vital Signs Initial Vital Signs: Vital Signs Temperature 98.4 F 03/27/22 16:22 Pulse Rate 91 H 03/27/22 16:22 Respiratory Rate 16 03/27/22 16:22 Blood Pressure 108/63 03/27/22 16:22 Pulse Oximetry 98 03/27/22 16:22 Oxygen Delivery Method 03/27/22 16:22 <Chandu Reed DO - Last Filed: 03/28/22 05:03> Initial Vital Signs Initial Vital Signs: Vital Signs Temperature 98.4 F 03/27/22 16:22 Pulse Rate 91 H 03/27/22 16:22 Respiratory Rate 16 03/27/22 16:22 Blood Pressure 108/63 03/27/22 16:22 Pulse Oximetry 98 03/27/22 16:22 Oxygen Delivery Method 03/27/22 16:22 Course <Shukri Soto PA-C - Last Filed: 03/27/22 19:17> Orders Ordered: ED Orders 03/27/22 18:53 GC Screen Stat Wet Prep Tric BV Judith Stat Yeast Fungus ID Stat Vital Signs Vital signs: Vital Signs - 8 hr 03/27/22 16:22 Temperature 98.4 F Pulse Rate 91 H Respiratory Rate 16 Blood Pressure 108/63 Pulse Oximetry 98 Oxygen Delivery Method Room Air <Chandu Reed DO - Last Filed: 03/28/22 05:03> Orders Ordered: ED Orders 03/27/22 18:53 GC Screen Stat Wet Prep Tric BV Judith Stat Yeast Fungus ID Stat Vital Signs Vital signs: Vital Signs - 8 hr 03/27/22 16:22 Temperature 98.4 F Pulse Rate 91 H Respiratory Rate 16 Blood Pressure 108/63 Pulse Oximetry 98 Oxygen Delivery Method Room Air MDM - Female Genitourinary <SARAH Drake Last Filed: 03/27/22 19:17> Lab Data Labs: Point of Care Testing Test Results Negative Urine Dip Bedside Urine Glucose Negative Bedside Urine Bilirubin - Negative Bedside Urine Ketone - Negative Urine Specific [place] 1.015 Bedside Urine Occult Blood - Negative Bedside Urine pH 6.0 Bedside Urine Protein - Negative Bedside Urine Urobilinogen - Negative Bedside Urine Nitrite - Negative Bedside Urine Leukocytes - Negative Esterase MDM Narrative Medical decision making narrative: 21-year-old female presents to the emergency department due to vaginal irritation. UA negative for any evidence of UTI. Patient was swabbed to check for BV, Trichomonas, candidiasis, and gonorrhea and chlamydia. Please treat accordingly if any of these come back positive. Suspect more of a contact dermatitis to the surrounding vaginal genitalia and topical hydrocortisone cream will be prescribed. Patient also attempted an oral dose of fluconazole 2 days ago without significant relief in her symptoms. <Chandu Reed DO - Last Filed: 03/28/22 05:03> Lab Data Labs: Point of Care Testing Test Results Negative Urine Dip Bedside Urine Glucose Negative Bedside Urine Bilirubin - Negative Bedside Urine Ketone - Negative Urine Specific [place] 1.015 Bedside Urine Occult Blood - Negative Bedside Urine pH 6.0 Bedside Urine Protein - Negative Bedside Urine Urobilinogen - Negative Bedside Urine Nitrite - Negative Bedside Urine Leukocytes - Negative Esterase Discharge Plan Departure Patient Disposition: Home Clinical Impression: Dermatitis of vulva Activity Restrictions/Additional Instructions: Thank you for coming to the [facility] Emergency Department today. As discussed I suspect you have status to the external genitalia rather than an infection tear internal genitalia. We will call you if any of the results come back positive and medication needs to be prescribed. Please use his topical ointment to help with your symptoms. I hope you feel better soon. Prescriptions: New hydrocortisone 1 % cream 1 applic topical TID PRN (Reason: skin irritation) Qty: 28.35 0RF No Action oxybutynin chloride 5 mg tablet 5 mg PO BID-TID PRN (Reason: bladder spasms) Qty: 90 3RF valacyclovir 1 gram tablet 1,000 mg PO BID PRN (Reason: vulvar lesion ) 7 Days Qty: 14 1RF nitrofurantoin monohyd/m-cryst [Macrobid] 100 mg capsule 100 mg PO Q12H 5 Days Qty: 10 0RF Rx Instructions: must administer with a meal/food fluconazole [Diflucan] 150 mg tablet 150 mg PO Q3D Qty: 2 0RF Rx Instructions: take 1 tab, may repeat in 3 days if symptoms persist medroxyprogesterone [Depo-Provera] 150 mg/mL suspension 150 mg IM [id number] Qty: 1 3RF Rx Instructions: Next due Jul 22-Aug 05 2021 phenazopyridine [Pyridium] 100 mg tablet 100 mg PO TID PRN (Reason: urinary pain) Qty: 7 0RF Referrals: Alma Clements MD [Primary Care Provider] - Visit Report Forms: Patient Portal/API <Chandu Reed, - Last Filed: 03/28/22 05:03> Cosign ED Attending Cosyumikoature Attestation: I was immediately available in the department for consultation. Documentation has been reviewed. I agree with assessment and plan.
== END 2022-03-27 19:40 | disposition home or self-care (01) ==
PROVIDERS: Emergency Provider Physician Assistant Medical; PCP Family Medicine
DX: L30.8 Other specified dermatitis (principal)
CPT/HCPCS: 81003; 81025; 87081; 87102; 87107; 87210; 99282

== ENCOUNTER → 2022-05-14 16:28 | Outpatient (CLI) | payer OTHER, MEDICAID, SELFPAY ==
[2022-05-14 17:54] LABS: HEMOLYSIS < 15 (0-50); Iron 37 ug/dL (37-170)
[2022-05-14 18:04] LABS: Percent Iron Saturation 10 % (15-50); Total Iron Binding Capacity 389 ug/dL (265-497); Transferrin 295 mg/dL (206-381)
[2022-05-14 18:40] LABS: Ferritin 5 ng/mL (6-137)
[2022-05-14 18:55] LABS: Vitamin B12 465 pg/mL (239-931)
[2022-05-14 20:03] LABS: Appearance Urine UA CLEAR; Bilirubin Urine UA NEGATIVE (NEGATIVE); Color Urine UA YELLOW; Glucose Urine UA TRACE g/dL (Negative); Ketones Urine UA 1+ (NEGATIVE); Leukocyte Esterase Urine UA NEGATIVE (NEGATIVE); Nitrite Urine UA NEGATIVE (Negative); Occult Blood Urine UA TRACE-LYSED (Negative); Protein Urine UA 1+ (Negative); Specific Gravity Urine UA 1.025 (1.000-1.035); Urobilinogen Urine UA 0.2 E.U./dL (0.2); pH Urine UA 5.5 (4.5-8.0)
[2022-05-14 20:08] LABS: Bacteria Urine Occasional (0-1); Culture Indicated Urine Cult Not Indicated; RBC Urine 0-1/HPF (0-5/HPF); Squamous Epithelial Cell Urine 5-10 /HPF (0-5/HPF); Transitional Epi Cells Urine 1-5/HPF (0-5/HPF); WBC Urine 1-5/HPF (0-5/HPF)
== END ==
PROVIDERS: PCP Family Medicine; Referring Provider Physician Assistant; Visit Provider Physician Assistant
DX: R53.83 Other fatigue (principal); R35.0 Frequency of micturition
CPT/HCPCS: 36415; 81001; 82607; 82728; 83540; 83550; 84443

== ENCOUNTER → 2022-07-28 16:50 | Outpatient (CLI) | payer OTHER, MEDICAID, SELFPAY ==
--- NOTE | 2022-07-28 16:52 | DI.US.S_ITS ---
PROCEDURE: US RENAL COMPLETE INDICATIONS: URINARY FREQUENCY TECHNIQUE: Real-time scanning was performed of the kidneys and bladder, with image documentation. COMPARISON: None. FINDINGS: Kidneys: Right kidney measures 8.6 centimeters long axis. Left kidney measures 9.8 centimeters long axis. Normal bilateral renal cortical thickness and echogenicity. No shadowing calculus or hydronephrosis. Bladder: Normal appearance of the urinary bladder. No postvoid residual. Miscellaneous: No free pelvic fluid. IMPRESSION: Normal study. Dictated by: Andre Downs M.D. on 07/29/2022 at 15:28 Approved by: Andre Downs M.D. on 07/29/2022 at 15:30
== END ==
PROVIDERS: Family Provider Family Medicine; PCP Family Medicine; Referring Provider Physician Assistant; Visit Provider Physician Assistant
DX: R30.9 Painful micturition, unspecified (principal); R35.0 Frequency of micturition
CPT/HCPCS: 76770

== ENCOUNTER → 2022-08-20 15:05 | Outpatient (CLI) | payer OTHER, MEDICAID, SELFPAY | PROVIDERS: Family Provider Family Medicine; PCP Family Medicine; Visit Provider Nurse Practitioner Family | DX: R30.0 Dysuria (principal) | CPT/HCPCS: 81002; 87086 ==

== ENCOUNTER 2022-09-05 13:00 | Outpatient (RCR) | payer OTHER, MEDICAID, SELFPAY ==
--- NOTE | 2022-06-20 16:00 | PT.OIE ---
Current Diagnoses Scar conditions and fibrosis of skin (06/20/22) Dorsalgia, unspecified (06/20/22) Pain, unspecified (06/20/22) Past Medical History (Last Updated 05/16/22 @ 08:00 by Robyn Parsons PA-C) Dysuria Healthy adult Iron deficiency anemia Pain on voiding Past Surgical History (Last Reviewed 03/12/22 @ 19:33 by Dora Steen, [facility]) No pertinent past surgical history Status post section Visit Care Team Role Provider Type Alma Clements MD Family Provider Physician Primary Care Provider Referring Provider Specialty: Family Practice Address: [address] [place] [address], [id number] Email: [email or web address] Robyn Parsons PA-C Attending Provider Advanced Drill Sergeant Specialty: Medical Address: [address], [facility] Email: [email or web address] Physical Therapy Initial Evaluation PT-OP-A Visit Information Start: 06/18/22 15:34 Freq: Status: Active Protocol: Document 06/20/22 14:30 AMB (Rec: 06/20/22 15:35 AMB [id number]) Out-Patient Physical Therapy Visit Information Visit Information Visit Type Initial Evaluation Visit Start Time 14:30 Visit Stop Time 15:15 Total Visit Minutes 45 Visit Number 1 PT-OP-B Current Condition Start: 06/18/22 15:34 Freq: Status: Active Protocol: Document 06/20/22 14:30 AMB (Rec: 06/20/22 15:35 AMB [id number]) Current Condition History of Current Condition Current Complaints Thoracic back pain History of Current Condition pinching pain more at night. Urinary frequency: hurts worse if doesn 't go frequently. Urgency. Some days are better than others. Feels like soda can make it worse. Tries to drink a lot of water. Has been trying to go to the gym and feels good during the workout, but then later the pain is worse in the back. Workout includes abs, squats. 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 Does report increased pain with intercourse but thinks that might be control related (depo). Also notes increased thoracic back pain right before period starts. PT-OP-C Subjective Start: 06/18/22 15:34 Freq: Status: Active Protocol: Document 06/20/22 14:30 AMB (Rec: 06/28/22 12:56 AMB [id number]) Patient Questionnaires Oswestry Low Back Index Oswestry Score 28 Oswestry Impairment 20 to 39% Impaired (Score 20- 39) OP-PT Pain Assessment Comments Pain Comments Upper back and neck: stiffness and cramping worst with lying down, cold and driving. Pinching at the scar . Denies numbness/tingling. PT-OP-I Pelvic Floor Start: 06/18/22 15:34 Freq: Status: Active Protocol: Document 06/20/22 14:30 AMB (Rec: 06/28/22 12:56 AMB [id number]) Pelvic Floor Assessment Comments Pelvic Floor Comments Deferred internal exam due to time constraints. Did verbally and with a model instruct in pelvic floor contraction. Pt denies pelvic floor pain with the exception of with intercourse, wondering if related to depo shot. PT-OP-J Posture/Palpation/Skin Start: 06/18/22 15:34 Freq: Status: Active Protocol: Document 06/20/22 14:30 AMB (Rec: 06/28/22 12:56 AMB [id number]) Palpation Assessment Location One Palpation Details Tenderness over scar , especially just slightly right of midline scar tissue palpable PT-OP-Q Treatments Start: 06/18/22 15:34 Freq: Status: Active Protocol: Document 06/20/22 14:30 AMB (Rec: 06/28/22 12:56 AMB [id number]) Therapeutic Exercises Other Exercises open book Reps/Minutes 5 TA in quadruped Reps/Minutes 5x5 PT-OP-T Assessment and Plan Start: 06/18/22 15:34 Freq: Status: Active Protocol: Document 06/20/22 14:30 AMB (Rec: 06/28/22 12:56 AMB [id number]) Physical Therapy Assessment Rehab Potential Rehabilitation Potential Good Evaluation Complexity Number of Personal Factors/Comorbidities 1-2 Number of Body Systems Impaired 3 Clinical Presentation at Evaluation Evolving Impairments Impairments Pain,Soft Tissue Mobility, Strength Goals Three Impairment Urinary frequency/urgency Short Term Goal (STG) Ami will use urge reduction techniques to decrease her urination to ever 3-4 hours. STG Duration 6 weeks Two Impairment pain Short Term Goal (STG) Ami will be independent and consistent with a C- section scar self massage program. STG Duration 6 weeks One Impairment Thoracic back pain Short Term Goal (STG) Ami will sleep for 4 hours without waking due to thoracic back pain. STG Duration 6 weeks Intermediate Goal (LTG) Ami will drive for 1 hour without thoracic back pain. LTG Duration 12 weeks Assessment Summary Assessment Ami attends physical therapy with chronic thoracic back pain worse since delivery a year ago and continued C- section tenderness. Her worst pain is at night when she is trying to sleep. She does endorse neck pain as well, really doesn't have low back pain, but does deny numbness and tingling. She will benefit from physical therapy to help her manage her C- section pain, urinary frequency and urgency as well as further evaluate and treat her thoracic back pain. Physical Therapy Plan Frequency and Duration Frequency of Treatment 1x/Week Duration of treatment (weeks) 12 Plan of Care Start Date 06/20/22 Plan of Care End Date 09/12/22 Therapeutic Interventions Therapeutic Interventions Home Exercise Program,Manual Therapy,Neuromuscular Re- education,Self-Care/Home Management,Therapeutic Activities,Therapeutic Exercises Modalities Biofeedback,Cold Pack/Ice Massage,Electric Stimulation Next Visit Focus/Plan Next Note Type Treatment Note Next Visit Plan Follow up on pt's self C- section and bowel massage. Urge reduction techniques ( internal exam vs biofeedback if continued questions on pelvic floor strengthening), open book, TA and quadruped.
--- NOTE | 2022-06-20 16:00 | PT.OPPOC ---
Physical, Occupational & Speech Therapy At [facility] Current Diagnoses Scar conditions and fibrosis of skin (06/20/22) Dorsalgia, unspecified (06/20/22) Pain, unspecified (06/20/22) Visit Care Team Role Provider Type Alma Clements MD Family Provider Physician Primary Care Provider Referring Provider Specialty: Family Practice Address: [address] [place] [address], [place], [address] Email: [email or web address] Robyn Parsons PA-C Attending Provider Advanced Director Religious Education Specialty: Medical Address: [facility], [address] [place] [address], [address] Email: [email or web address] Plan Of Care PT-OP-T Assessment and Plan Start: 06/18/22 15:34 Freq: Status: Active Protocol: Document 06/20/22 14:30 AMB (Rec: 06/28/22 12:56 AMB [id number]) Physical Therapy Assessment Rehab Potential Rehabilitation Potential Good Evaluation Complexity Number of Personal Factors/Comorbidities 1-2 Number of Body Systems Impaired 3 Clinical Presentation at Evaluation Evolving Impairments Impairments Pain,Soft Tissue Mobility, Strength Goals Three Impairment Urinary frequency/urgency Short Term Goal (STG) Ami will use urge reduction techniques to decrease her urination to ever 3-4 hours. STG Duration 6 weeks Two Impairment pain Short Term Goal (STG) Ami will be independent and consistent with a C- section scar self massage program. STG Duration 6 weeks One Impairment Thoracic back pain Short Term Goal (STG) Ami will sleep for 4 hours without waking due to thoracic back pain. STG Duration 6 weeks Medical Imaging Director Goal (LTG) Ami will drive for 1 hour without thoracic back pain. LTG Duration 12 weeks Assessment Summary Assessment Ami attends physical therapy with chronic thoracic back pain worse since delivery a year ago and continued C- section tenderness. Her worst pain is at night when she is trying to sleep. She does endorse neck pain as well, really doesn't have low back pain, but does deny numbness and tingling. She will benefit from physical therapy to help her manage her C- section pain, urinary frequency and urgency as well as further evaluate and treat her thoracic back pain. Physical Therapy Plan Frequency and Duration Frequency of Treatment 1x/Week Duration of treatment (weeks) 12 Plan of Care Start Date 06/20/22 Plan of Care End Date 09/12/22 Therapeutic Interventions Therapeutic Interventions Home Exercise Program,Manual Therapy,Neuromuscular Re- education,Self-Care/Home Management,Therapeutic Activities,Therapeutic Exercises Modalities Biofeedback,Cold Pack/Ice Massage,Electric Stimulation Next Visit Focus/Plan Next Note Type Treatment Note Next Visit Plan Follow up on pt's self C- section and bowel massage. Urge reduction techniques ( internal exam vs biofeedback if continued questions on pelvic floor strenthening), open book, TA and quadruped. Plan of Care Dates Plan of Care Start Date 06/20/22 Plan of Care End Date 09/12/22 Electronically Signed by: Salima Lang, PT 06/28/22 1257 If you are in agreement with this Plan of Care, please return a signed and dated copy. I have reviewed this Plan of Care and certify that the skilled therapy services above are required to meet the patient?s needs. Physician Signature Date Printed Name and Credentials Clinical Instructor Signature Printed Name and Credentials
--- NOTE | 2022-07-23 15:50 | PT.OTN ---
Current Diagnoses Scar conditions and fibrosis of skin (07/23/22) Dorsalgia, unspecified (07/23/22) Pain, unspecified (07/23/22) Physical Therapy Treatment Note PT-OP-A Visit Information Start: 06/18/22 15:34 Freq: Status: Active Protocol: Document 07/23/22 14:32 AMB (Rec: 07/23/22 15:08 AMB [id number]) Out-Patient Physical Therapy Visit Information Visit Information Visit Type Treatment Note Visit Start Time 14:30 Visit Stop Time 15:15 Total Visit Minutes 45 Visit Number 2 PT-OP-B Current Condition Start: 06/18/22 15:34 Freq: Status: Active Protocol: Document 06/20/22 14:30 AMB (Rec: 06/20/22 15:35 AMB [id number]) Current Condition History of Current Condition Current Complaints Thoracic back pain History of Current Condition pinching pain more at night. Urinary frequency: hurts worse if doesn 't go frequently. Urgency. Some days are better than others. Feels like soda can make it worse. Tries to drink a lot of water. Has been trying to go to the gym and feels good during the workout, but then later the pain is worse in the back. Workout includes abs, squats. 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 Does report increased pain with intercourse but thinks that might be control related (depo). Also notes increased thoraic back pain right before period starts. PT-OP-C Subjective Start: 06/18/22 15:34 Freq: Status: Active Protocol: Document 07/23/22 15:50 AMB (Rec: 07/23/22 15:50 AMB [id number]) OP-PT Subjective Patient Comments Patient Comments Pt reports continued thoracic pain is her biggest concern at this point. PT-OP-I Pelvic Floor Start: 06/18/22 15:34 Freq: Status: Active Protocol: Document 06/20/22 14:30 AMB (Rec: 06/28/22 12:56 AMB [id number]) Pelvic Floor Assessment Comments Pelvic Floor Comments Deferred internal exam due to time constraints. Did verbally and with a model instruct in pelvic floor contraction. Pt denies pelvic floor pain with the exception of with intercourse, wondering if related to depo shot. PT-OP-J Posture/Palpation/Skin Start: 06/18/22 15:34 Freq: Status: Active Protocol: Document 06/20/22 14:30 AMB (Rec: 06/28/22 12:56 AMB [id number]) Palpation Assessment Location One Palpation Details Tenderness over scar , especially just slightly right of midline scar tissue palpable PT-OP-Q Treatments Start: 06/18/22 15:34 Freq: Status: Active Protocol: Document 07/23/22 15:21 AMB (Rec: 07/23/22 15:47 AMB [id number]) Therapeutic Exercises Other Exercises open book Reps/Minutes 5 Manual Therapy Treatment Joint Mobilizations thoracic PAs Direction PA Grade III Body Position Prone Comments 30x2 from T Other Other Manual Treatments instruction in tennis balls vs theracane Self-Care/Home Management Treatment Activities Self-Care/Home Management Activities Pillow props for sleeping PT-OP-R Modalities Start: 06/18/22 15:34 Freq: Status: Active Protocol: Document 07/23/22 15:21 AMB (Rec: 07/23/22 15:47 AMB [id number]) Electric Stimulation Electric Stimulation Interferential Current (IFC) Duration (Minutes) 15 Combined With Heat/Cold Hot Pack PT-OP-T Assessment and Plan Start: 06/18/22 15:34 Freq: Status: Active Protocol: Document 07/23/22 14:32 AMB (Rec: 07/23/22 15:08 AMB [id number]) Physical Therapy Assessment Goals Three Impairment Urinary frequency/urgency Short Term Goal (STG) Ami will use urge reduction techniques to decrease her urination to ever 3-4 hours. STG Duration 6 weeks Two Impairment pain Short Term Goal (STG) Ami will be independent and consistent with a C- section scar self massage program. STG Duration 6 weeks One Impairment Thoracic back pain Short Term Goal (STG) Ami will sleep for 4 hours without waking due to thoracic back pain. STG Duration 6 weeks Fdc Goal (LTG) Ami will drive for 1 hour without thoracic back pain. LTG Duration 12 weeks Assessment Summary Assessment Soreness in her back. Does get pain after workout. No change with doing scar massage yet. Back pain started during . Pain has been getting worse. Does endorse neck pain, but more feels like muscle soreness and tightness in thoracic spine. Physical Therapy Plan Frequency and Duration Frequency of Treatment 1x/Week Duration of treatment (weeks) 12 Plan of Care Start Date 06/20/22 Plan of Care End Date 09/12/22 Therapeutic Interventions Therapeutic Interventions Home Exercise Program,Manual Therapy,Neuromuscular Re- education,Self-Care/Home Management,Therapeutic Activities,Therapeutic Exercises Modalities Biofeedback,Cold Pack/Ice Massage,Electric Stimulation Next Visit Focus/Plan Next Note Type Treatment Note Next Visit Plan Follow up on pt's self C- section and bowel massage. Urge reduction techniques ( internal exam vs biofeedback if continued questions on pelvic floor strenthening), open book, TA and quadruped.
--- NOTE | 2022-07-30 15:52 | PT.OTN ---
Current Diagnoses Scar conditions and fibrosis of skin (07/30/22) Dorsalgia, unspecified (07/30/22) Pain, unspecified (07/30/22) Physical Therapy Treatment Note PT-OP-A Visit Information Start: 06/18/22 15:34 Freq: Status: Active Protocol: Document 07/30/22 14:30 AMB (Rec: 07/30/22 15:51 AMB [id number]) Out-Patient Physical Therapy Visit Information Visit Information Visit Type Treatment Note Visit Start Time 14:30 Visit Stop Time 15:15 Total Visit Minutes 45 Visit Number 3 PT-OP-B Current Condition Start: 06/18/22 15:34 Freq: Status: Active Protocol: Document 06/20/22 14:30 AMB (Rec: 06/20/22 15:35 AMB [id number]) Current Condition History of Current Condition Current Complaints Thoracic back pain History of Current Condition pinching pain more at night. Urinary frequency: hurts worse if doesn 't go frequently. Urgency. Some days are better than others. Feels like soda can make it worse. Tries to drink a lot of water. Has been trying to go to the gym and feels good during the workout, but then later the pain is worse in the back. Workout includes abs, squats. 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 Does report increased pain with intercourse but thinks that might be control related (depo). Also notes increased thoraic back pain right before period starts. PT-OP-C Subjective Start: 06/18/22 15:34 Freq: Status: Active Protocol: Document 07/30/22 14:30 AMB (Rec: 07/30/22 15:51 AMB [id number]) OP-PT Subjective Patient Comments Patient Comments Pt felt better after TENS for about 3 days. PT-OP-I Pelvic Floor Start: 06/18/22 15:34 Freq: Status: Active Protocol: Document 06/20/22 14:30 AMB (Rec: 06/28/22 12:56 AMB [id number]) Pelvic Floor Assessment Comments Pelvic Floor Comments Deferred internal exam due to time constraints. Did verbally and with a model instruct in pelvic floor contraction. Pt denies pelvic floor pain with the exception of with intercourse, wondering if related to depo shot. PT-OP-J Posture/Palpation/Skin Start: 06/18/22 15:34 Freq: Status: Active Protocol: Document 06/20/22 14:30 AMB (Rec: 06/28/22 12:56 AMB [id number]) Palpation Assessment Location One Palpation Details Tenderness over scar , especially just slightly right of midline scar tissue palpable PT-OP-Q Treatments Start: 06/18/22 15:34 Freq: Status: Active Protocol: Document 07/30/22 14:30 AMB (Rec: 07/30/22 15:51 AMB [id number]) Therapeutic Exercises Other Exercises prone press up Reps/Minutes 10 thread the needle Reps/Minutes 10 Comments modified for flexed elbow eli pose Other Exercise Name sidebend Reps/Minutes 30x2 open book Reps/Minutes 5 Manual Therapy Treatment Soft Tissue Mobilization 1 Body Location thoracic paraspinals Comments tolerated moderate pressure, deeper pressure increased pian Joint Mobilizations thoracic PAs Direction PA Grade III Body Position Prone Comments 30x2 from T4-10 PT-OP-R Modalities Start: 06/18/22 15:34 Freq: Status: Active Protocol: Document 07/30/22 14:30 AMB (Rec: 07/30/22 15:51 AMB [id number]) Electric Stimulation Electric Stimulation Interferential Current (IFC) Duration (Minutes) 15 Combined With Heat/Cold Hot Pack PT-OP-T Assessment and Plan Start: 06/18/22 15:34 Freq: Status: Active Protocol: Document 07/30/22 14:30 AMB (Rec: 07/30/22 15:51 AMB [id number]) Physical Therapy Assessment Goals Three Impairment Urinary frequency/urgency Short Term Goal (STG) Ami will use urge reduction techniques to decrease her urination to ever 3-4 hours. STG Duration 6 weeks Two Impairment pain Short Term Goal (STG) Ami will be independent and consistent with a C- section scar self massage program. STG Duration 6 weeks One Impairment Thoracic back pain Short Term Goal (STG) Ami will sleep for 4 hours without waking due to thoracic back pain. STG Duration 6 weeks Front Attendant Goal (LTG) Ami will drive for 1 hour without thoracic back pain. LTG Duration 12 weeks Assessment Summary Assessment Ami most concerned about thoracic back pain, also has neck and low back pain. Stiffness worst at night, no imaging yet. Continues to have urgency frequency. Have not really dealt with that yet due to working on the pain. HEP for thoracic rotation and eli pose. Pt is reporting improvemement with manual and IFC. encouragedin tens unit for home. Physical Therapy Plan Frequency and Duration Frequency of Treatment 1x/Week Duration of treatment (weeks) 12 Plan of Care Start Date 06/20/22 Plan of Care End Date 09/12/22 Therapeutic Interventions Therapeutic Interventions Home Exercise Program,Manual Therapy,Neuromuscular Re- education,Self-Care/Home Management,Therapeutic Activities,Therapeutic Exercises Modalities Biofeedback,Cold Pack/Ice Massage,Electric Stimulation Next Visit Focus/Plan Next Note Type Treatment Note Next Visit Plan Follow up on urge reduction techniques
--- NOTE | 2022-08-13 21:48 | PT.OTN ---
Current Diagnoses Scar conditions and fibrosis of skin (08/13/22) Dorsalgia, unspecified (08/13/22) Pain, unspecified (08/13/22) Physical Therapy Treatment Note PT-OP-A Visit Information Start: 06/18/22 15:34 Freq: Status: Active Protocol: Document 08/13/22 13:51 AMB (Rec: 08/13/22 14:30 AMB [id number]) Out-Patient Physical Therapy Visit Information Visit Information Visit Type Treatment Note Visit Start Time 13:45 Visit Stop Time 14:30 Total Visit Minutes 45 Visit Number 4 PT-OP-B Current Condition Start: 06/18/22 15:34 Freq: Status: Active Protocol: Document 06/20/22 14:30 AMB (Rec: 06/20/22 15:35 AMB [id number]) Current Condition History of Current Condition Current Complaints Thoracic back pain History of Current Condition pinching pain more at night. Urinary frequency: hurts worse if doesn 't go frequently. Urgency. Some days are better than others. Feels like soda can make it worse. Tries to drink a lot of water. Has been trying to go to the gym and feels good during the workout, but then later the pain is worse in the back. Workout includes abs, squats. 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 Does report increased pain with intercourse but thinks that might be control related (depo). Also notes increased thoraic back pain right before period starts. PT-OP-C Subjective Start: 06/18/22 15:34 Freq: Status: Active Protocol: Document 08/13/22 13:51 AMB (Rec: 08/13/22 14:30 AMB [id number]) OP-PT Subjective Patient Comments Patient Comments Continuing to have urgency. 8 /10 pain currently in neck and upper back pain. STiffness continues sleep still painful. PT-OP-I Pelvic Floor Start: 06/18/22 15:34 Freq: Status: Active Protocol: Document 06/20/22 14:30 AMB (Rec: 06/28/22 12:56 AMB [id number]) Pelvic Floor Assessment Comments Pelvic Floor Comments Deferred internal exam due to time constraints. Did verbally and with a model instruct in pelvic floor contraction. Pt denies pelvic floor pain with the exception of with intercourse, wondering if related to depo shot. PT-OP-J Posture/Palpation/Skin Start: 06/18/22 15:34 Freq: Status: Active Protocol: Document 06/20/22 14:30 AMB (Rec: 06/28/22 12:56 AMB [id number]) Palpation Assessment Location One Palpation Details Tenderness over scar , especially just slightly right of midline scar tissue palpable PT-OP-Q Treatments Start: 06/18/22 15:34 Freq: Status: Active Protocol: Document 08/13/22 13:45 AMB (Rec: 08/14/22 21:48 AMB [id number]) Therapeutic Exercises Other Exercises thread the needle Reps/Minutes 10 Comments modified for flexed elbow eli pose Other Exercise Name sidebend Reps/Minutes 30x2 TA in quadruped Reps/Minutes 5x5 Manual Therapy Treatment Soft Tissue Mobilization 1 Body Location thoracic/cervical paraspinals Comments tolerated moderate pressure, deeper pressure increased pian Joint Mobilizations thoracic PAs Direction PA Grade III Body Position Prone Comments 30x2 from T4-10 PT-OP-R Modalities Start: 06/18/22 15:34 Freq: Status: Active Protocol: Document 07/30/22 14:30 AMB (Rec: 07/30/22 15:51 AMB [id number]) Electric Stimulation Electric Stimulation Interferential Current (IFC) Duration (Minutes) 15 Combined With Heat/Cold Hot Pack PT-OP-T Assessment and Plan Start: 06/18/22 15:34 Freq: Status: Active Protocol: Document 08/13/22 13:45 AMB (Rec: 08/14/22 21:48 AMB [id number]) Physical Therapy Assessment Goals Three Impairment Urinary frequency/urgency Short Term Goal (STG) Ami will use urge reduction techniques to decrease her urination to ever 3-4 hours. STG Duration 6 weeks Two Impairment pain Short Term Goal (STG) Ami will be independent and consistent with a C- section scar self massage program. STG Duration 6 weeks One Impairment Thoracic back pain Short Term Goal (STG) Ami will sleep for 4 hours without waking due to thoracic back pain. STG Duration 6 weeks Longterm Goal (LTG) Ami will drive for 1 hour without thoracic back pain. LTG Duration 12 weeks Assessment Summary Assessment Continues to have pain. Stiffness at night. does feel better after PT but sx return the next day. Did encourage pt that she can follwo up with PCP regarding pain to consider further treatments/ imaging etc. if PT is not progressing enough. Physical Therapy Plan Frequency and Duration Frequency of Treatment 1x/Week Duration of treatment (weeks) 12 Plan of Care Start Date 06/20/22 Plan of Care End Date 09/12/22 Therapeutic Interventions Therapeutic Interventions Home Exercise Program,Manual Therapy,Neuromuscular Re- education,Self-Care/Home Management,Therapeutic Activities,Therapeutic Exercises Modalities Biofeedback,Cold Pack/Ice Massage,Electric Stimulation Next Visit Focus/Plan Next Note Type Treatment Note Next Visit Plan Follow up on urge reduction techniques and back pain. . . pt is following up with urogyn for bladder urgency, states she has tried to do PT techniques and did not find them helfpul.
--- NOTE | 2022-09-05 14:30 | PT.OTN ---
Current Diagnoses Scar conditions and fibrosis of skin (09/05/22) Dorsalgia, unspecified (09/05/22) Pain, unspecified (09/05/22) Physical Therapy Treatment Note PT-OP-A Visit Information Start: 06/18/22 15:34 Freq: Status: Active Protocol: Document 09/05/22 13:02 AMB (Rec: 09/05/22 14:21 AMB [id number]) Out-Patient Physical Therapy Visit Information Visit Information Visit Type Treatment Note Visit Start Time 13:00 Visit Stop Time 13:45 Total Visit Minutes 45 Visit Number 5 PT-OP-B Current Condition Start: 06/18/22 15:34 Freq: Status: Active Protocol: Document 06/20/22 14:30 AMB (Rec: 06/20/22 15:35 AMB [id number]) Current Condition History of Current Condition Current Complaints Thoracic back pain History of Current Condition pinching pain more at night. Urinary frequency: hurts worse if doesn 't go frequently. Urgency. Some days are better than others. Feels like soda can make it worse. Tries to drink a lot of water. Has been trying to go to the gym and feels good during the workout, but then later the pain is worse in the back. Workout includes abs, squats. 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 Does report increased pain with intercourse but thinks that might be control related (depo). Also notes increased thoraic back pain right before period starts. PT-OP-C Subjective Start: 06/18/22 15:34 Freq: Status: Active Protocol: Document 09/05/22 13:02 AMB (Rec: 09/05/22 14:21 AMB [id number]) OP-PT Subjective Patient Comments Patient Comments 7/10 pain in upper/mid back. PT-OP-I Pelvic Floor Start: 06/18/22 15:34 Freq: Status: Active Protocol: Document 06/20/22 14:30 AMB (Rec: 06/28/22 12:56 AMB [id number]) Pelvic Floor Assessment Comments Pelvic Floor Comments Deferred internal exam due to time constraints. Did verbally and with a model instruct in pelvic floor contraction. Pt denies pelvic floor pain with the exception of with intercourse, wondering if related to depo shot. PT-OP-J Posture/Palpation/Skin Start: 06/18/22 15:34 Freq: Status: Active Protocol: Document 06/20/22 14:30 AMB (Rec: 06/28/22 12:56 AMB [id number]) Palpation Assessment Location One Palpation Details Tenderness over scar , especially just slightly right of midline scar tissue palpable PT-OP-Q Treatments Start: 06/18/22 15:34 Freq: Status: Active Protocol: Document 09/05/22 13:02 AMB (Rec: 09/05/22 14:21 AMB [id number]) Therapeutic Exercises Prone Exercises prone press up Reps/Minutes 30x2 Standing Exercises rows Standing Exercise Name t band Reps/Minutes 2x10 Comments cues to avoid UT recruitment Other Exercises thread the needle Reps/Minutes 10 Comments modified for flexed elbow eli pose Other Exercise Name sidebend Reps/Minutes 30x2 TA in quadruped Reps/Minutes 5x5 Manual Therapy Treatment Soft Tissue Mobilization 1 Body Location thoracic/cervical paraspinals Comments tolerated moderate pressure, deeper pressure increased pian Joint Mobilizations thoracic PAs Direction PA Grade III Body Position Prone Comments 30x2 from T4-10 Manual Traction Cervical Reps/Duration 30x2 Taping k tape Comments 2 I strips, mid thoracic along paraspinals PT-OP-R Modalities Start: 06/18/22 15:34 Freq: Status: Active Protocol: Document 07/30/22 14:30 AMB (Rec: 07/30/22 15:51 AMB [id number]) Electric Stimulation Electric Stimulation Interferential Current (IFC) Duration (Minutes) 15 Combined With Heat/Cold Hot Pack PT-OP-T Assessment and Plan Start: 06/18/22 15:34 Freq: Status: Active Protocol: Document 09/05/22 13:02 AMB (Rec: 09/05/22 14:21 AMB [id number]) Physical Therapy Assessment Goals Three Impairment Urinary frequency/urgency Short Term Goal (STG) Ami will use urge reduction techniques to decrease her urination to ever 3-4 hours. STG Duration NOT MET Two Impairment pain Short Term Goal (STG) Ami will be independent and consistent with a C- section scar self massage program. STG Duration 6 weeks One Impairment Thoracic back pain Short Term Goal (STG) Ami will sleep for 4 hours without waking due to thoracic back pain. STG Duration 6 weeks Creasing And Cutting Press Feeder Goal (LTG) Ami will drive for 1 hour without thoracic back pain. LTG Duration NOT MET Assessment Summary Assessment Ami returns almost one month after last visit, but with no real changes in sx. Continues to have thoracic back pain and stiffness that makes sleeping and driving challenging. Due to lack of progress with PT will send back to PCP at this point, did encourage pt in continuing HEP and to be careful with posture mechanics when at the gym. Physical Therapy Plan Frequency and Duration Frequency of Treatment 1x/Week Duration of treatment (weeks) 12 Plan of Care Start Date 06/20/22 Plan of Care End Date 09/12/22 Therapeutic Interventions Therapeutic Interventions Home Exercise Program,Manual Therapy,Neuromuscular Re- education,Self-Care/Home Management,Therapeutic Activities,Therapeutic Exercises Modalities Biofeedback,Cold Pack/Ice Massage,Electric Stimulation Discharge Physical Therapy Discharge Reasons Plateau in Progress
== END 2022-09-08 16:10 | disposition home or self-care (01) ==
LOC: PHYS 13:00
PROVIDERS: Family Provider Family Medicine; PCP Family Medicine; Referring Provider Family Medicine; Visit Provider Physician Assistant
DX: M54.9 Dorsalgia, unspecified (principal); L90.5 Scar conditions and fibrosis of skin
CPT/HCPCS: 97014; 97110; 97140; 97162; 97535; G0283

== ENCOUNTER → 2022-09-29 15:59 | Outpatient (CLI) | payer OTHER, MEDICAID, SELFPAY ==
--- NOTE | 2022-09-29 16:02 | DI.RAD.S_ITS ---
PROCEDURE: XR THORACIC SPINE 2V INDICATIONS: Chronic thoracic pain TECHNIQUE: 2 views of the thoracic spine were acquired. COMPARISON: None. FINDINGS: Bones: No fractures or dislocations. No suspicious bony lesions. 12 pairs of ribs are noted, and appear intact where visualized. Soft tissues: No paravertebral stripe thickening. IMPRESSION: No radiographic abnormalities. Dictated by: Lorna Gonzales M.D. on 09/29/2022 at 17:17 Approved by: Lorna Gonzales M.D. on 09/29/2022 at 17:17
--- NOTE | 2022-09-29 16:02 | DI.RAD.S_ITS ---
PROCEDURE: XR CERVICAL SPINE 2V OR 3V INDICATIONS: Neck pain chronic TECHNIQUE: 3 view(s) of the cervical spine were acquired. COMPARISON: None. FINDINGS: Bones: No fractures or dislocations to the C7-T1 level. The lateral masses of C1 appear intact on the odontoid view. No suspicious bony lesions. Soft tissues: No prevertebral soft tissue swelling. IMPRESSION: No radiographic abnormalities. Dictated by: Lorna Gonzales M.D. on 09/29/2022 at 17:16 Approved by: Lorna Gonzales M.D. on 09/29/2022 at 17:16
--- NOTE | 2022-09-29 16:02 | DI.RAD.S_ITS ---
PROCEDURE: XR LUMBAR SPINE 2-3V INDICATIONS: Chronic pain LS spine TECHNIQUE: 3 views of the lumbar spine were acquired. COMPARISON: None. FINDINGS: Bones: 5 [id number]-[id number] vertebrae are present. There is normal bony alignment. No vertebral body compression fractures. No suspicious bony lesions. Soft tissues: Overlying bowel gas pattern is normal. No suspicious soft tissue calcifications. IMPRESSION: No radiographic abnormalities. Dictated by: Lorna Gonzales M.D. on 09/29/2022 at 17:16 Approved by: Lorna Gonzales M.D. on 09/29/2022 at 17:16
[2022-09-29 18:24] LABS: HEMOLYSIS < 15 (0-50); Iron 51 ug/dL (37-170)
[2022-09-29 18:27] LABS: Erythrocyte Sedimentation Rate 16 MM/HR (0-20)
[2022-09-29 18:30] LABS: C-Reactive Protein Quant 0.6 mg/dL (<1.0)
[2022-09-29 18:36] LABS: Percent Iron Saturation 13 % (15-50); Total Iron Binding Capacity 387 ug/dL (265-497); Transferrin 295 mg/dL (206-381)
[2022-09-29 19:00] LABS: Ferritin 8 ng/mL (6-137)
[2022-10-02 17:38] LABS: ANA Screen, IFA Negative (.)
== END ==
PROVIDERS: Family Provider Family Medicine; PCP Family Medicine; Referring Provider Physician Assistant; Visit Provider Physician Assistant
DX: M54.2 Cervicalgia (principal); M54.6 Pain in thoracic spine; M54.50 Low back pain, unspecified; D50.9 Iron deficiency anemia, unspecified
CPT/HCPCS: 36415; 72040; 72070; 72100; 82728; 83540; 83550; 85651; 86038; 86140

== ENCOUNTER 2022-10-12 15:06 | Emergency (ER) | payer OTHER, MEDICAID, SELFPAY ==
[2022-10-12 15:22] VITALS: BP 123/72; PULSE 84; RESP 16; TEMP 36.9; O2SAT 98; BMI 24.8
--- NOTE | 2022-10-12 15:27 | DI.RAD.S_ITS ---
PROCEDURE: XR WRIST RT MIN 3V INDICATIONS: wrist pain TECHNIQUE: 4 views of the wrist were acquired. COMPARISON: None. FINDINGS: Bones: No fractures or dislocations. No suspicious bony lesions. Soft tissues: No suspicious soft tissue calcifications. IMPRESSION: Unremarkable right wrist radiographs Approved by: Jesus Velasquez M.D. on 10/12/2022 at 15:39
[2022-10-12 16:51] VITALS: BP 136/77; PULSE 80; RESP 16; O2SAT 97
--- NOTE | 2022-10-12 17:28 | ED.EXTPRO ---
HPI - Extremity Problem General Chief complaint: Extremity Problem,Nontraumatic Stated complaint: Bump on wrist, Painful Time Seen by Provider: 10/12/22 17:28 Source: patient Mode of arrival: Ambulatory History of Present Illness HPI Narrative: Patient is a healthy 20-year-old female who presents today with a right wrist bump. She reports that it has been there for awhile however today it started hurting. No fever chills. She sometimes has little bit of numbness no tingling it is not red. Related Data Previous Rx's Medication Instructions Recorded medroxyprogesterone 150 mg/mL 150 mg IM [id number] #1 mL 05/06/21 intramuscular suspension (Depo-Provera) oxybutynin chloride 5 mg tablet 5 mg PO BID-TID PRN bladder spasms 06/07/21 #90 tabs valacyclovir 1 gram tablet 1,000 mg PO BID PRN vulvar lesion 03/14/22 7 days #14 tabs polyethylene glycol 3350 17 17 g PO DAILY PRN constipation 05/14/22 gram/dose oral powder (Miralax) #238 grams iron polysacch cplx 150 mg 1 cap PO DAILY #90 caps 05/16/22 iron-vit B12 25 mcg-folic acid 1 mg capsule (Ferrex) Allergies Allergy/AdvReac Type Severity Reaction Status Date / Time No Known Drug Allergies Allergy Verified 08/20/22 14:51 Review of Systems Review of Systems ROS Unobtainable: All systems reviewed & are unremarkable except as noted in HPI and below Patient History Medical History Dysuria Healthy adult Iron deficiency anemia Pain on voiding Surgical History No pertinent past surgical history Status post section Family History Mother No problems noted. Father No problems noted. Grandmother No problems noted. Grandfather No problems noted. Grandmother No problems noted. Grandfather No problems noted. Brother No problems noted. Sister No problems noted. 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 : aware and precautions feliciano/religious: Zoroastrianism special feliciano needs: No seatbelt use: always helmet use: Yes Smoking Status: Never smoker second hand exposure: No alcohol intake: never substance use type: does not use and marijuana during the past year weight has: remained stable well-balanced diet: daily or most days daily servings fruits/ve-4 caffeine: No eating out: 1-3 times/week Smoking Status: Never smoker alcohol intake frequency: other Substance Use Type: does not use Exam Initial Vital Signs Initial Vital Signs: Vital Signs Temperature 98.4 F 10/12/22 15:22 Pulse Rate 84 10/12/22 15:22 Respiratory Rate 16 10/12/22 15:22 Blood Pressure 123/72 10/12/22 15:22 Pulse Oximetry 98 10/12/22 15:22 Oxygen Delivery Method Room Air 10/12/22 15:22 GENERAL: Well-appearing, well-nourished and in no acute distress. CARDIOVASCULAR: peripheral pulses in tact, cap refill <2 sec RESPIRATORY: No respiratory distress, speaks in full sentences without difficulty EXTREMITIES: Normal range of motion, no clubbing or edema. Neurovascularly intact Right wrist distal radial pulse intact full range of motion of fingers NEUROLOGICAL: Cranial nerves II through XII grossly intact. Normal gait and speech. SKIN: Right wrist palmar side 0.25cm x 0.25cm probable cyst no erythema no fluctuation Course Orders Ordered: ED Orders 10/12/22 15:27 XR wrist RT min 3V Stat Vital Signs Vital signs: Vital Signs - 8 hr 10/12/22 15:22 10/12/22 16:51 10/12/22 16:51 Temperature 98.4 F Pulse Rate 84 80 Respiratory Rate 16 16 Blood Pressure 123/72 136/77 Pulse Oximetry 98 97 Oxygen Delivery Method Room Air MDM - Extremity (Nontraumatic) Imaging Data Extremity x-ray #1: Radiologist's Impression: PROCEDURE:? XR WRIST RT MIN 3V ? INDICATIONS: wrist pain ? TECHNIQUE:? 4 views of the wrist were acquired.? ? COMPARISON:? None. ? FINDINGS:? ? Bones:? No fractures or dislocations.? No suspicious bony lesions.? ? ? Soft tissues:? No suspicious soft tissue calcifications.? ? IMPRESSION:? Unremarkable right wrist radiographs ? ? ? Approved by: Jesus Velasquez M.D. on 10/12/2022 at 15:39? MDM Narrative Medical decision making narrative: Patient healthy 21-year-old female who presents with a small lump on her right wrist has been there for awhile but more painful today. Seems like assist there is no evidence of infection there is no erythema or fluctuation x-ray is negative. Recommend supportive care only. Discharge Plan Departure Patient Disposition: Home Clinical Impression: Ganglion cyst of dorsum of right wrist Instructions: DI Ganglion Cyst Activity Restrictions/Additional Instructions: *You have been diagnosed with ganglion cyst *What to do: At this time unfortunately there is not much I can do. I recommend heat or ice whichever makes it feel better. Move wrist around. It may or may not require surgery. Please continue to monitor the can get infected, however years is not infected at this time and you do not need antibiotics *Continue to take medications as directed Motrin 600 mg every 6 hours if needed for oecj-hj-wtrktqrj pain Tylenol 1000 mg every 6 hours if needed for lgrk-wb-axvutkha pain *Follow up with your primary care provider in 2-3 days or call [phone] *Return to ER if you should have increasing pain swelling redness fever or any new, worsening or concerning symptoms Prescriptions: No Action polyethylene glycol 3350 [Miralax] 17 gram/dose powder 17 g PO DAILY PRN (Reason: constipation) Qty: 238 3RF oxybutynin chloride 5 mg tablet 5 mg PO BID-TID PRN (Reason: bladder spasms) Qty: 90 3RF valacyclovir 1 gram tablet 1,000 mg PO BID PRN (Reason: vulvar lesion ) 7 Days Qty: 14 1RF Ferrex 150 Forte 150-25-1 mg-mcg-mg capsule 1 cap PO DAILY Qty: 90 1RF medroxyprogesterone [Depo-Provera] 150 mg/mL suspension 150 mg IM [id number] Qty: 1 3RF Rx Instructions: Next due Jul 22-Aug 05 2021 Referrals: Alma Clements MD [Primary Care Provider] - Stand Alone Forms: Patient Portal/API
[2022-10-12 17:51] VITALS: BP 128/70; PULSE 68; RESP 18; O2SAT 98
== END 2022-10-12 17:51 | disposition home or self-care (01) ==
PROVIDERS: Emergency Provider Emergency Medicine; Family Provider Family Medicine; PCP Family Medicine
DX: M67.431 Ganglion, right wrist (principal)
CPT/HCPCS: 73110; 99283

== ENCOUNTER 2023-03-04 09:43 | Emergency (ER) | payer MEDICAID, SELFPAY ==
[2023-03-04] VITALS (10 sets, daily range): BP systolic 105–121; BP diastolic 51–56; PULSE 80–94; RESP 16; TEMP 36.7; O2SAT 98–100; BMI 26.8
[2023-03-04 10:18] LABS: Ictotest Urine Negative (Negative)
[2023-03-04 10:25] LABS: Bacteria Urine Moderate (10-30); RBC Urine 5-10/HPF (0-5/HPF); Squamous Epithelial Cell Urine 5-10 /HPF (0-5/HPF); WBC Urine 1-5/HPF (0-5/HPF)
--- NOTE | 2023-03-04 10:25 | ED.ABDPAIN ---
HPI - Abdominal Pain General Chief Complaint: Abdominal Pain Stated Complaint: LT side abd hurts/lightheaded Time Seen by Provider: 03/04/23 10:20 Source: patient Mode of arrival: Ambulatory History of Present Illness HPI narrative: Patient here with for complaints of left upper quadrant pain that started at 7:00 a.m. this morning. Is dull sharp pain. Does not radiate. No nausea or vomiting. No recent stressors. No changes in diet. Is not on any antacids. No recent stomach discomfort with eating. No urinary complaints. No diarrhea. Denies . No chest pain or back pain. Has not tried any medications for this problem Related Data Home Medications Medication Instructions Recorded Confirmed hydrocortisone 2.5 % topical 1 applic topical DAILY 10/23/22 10/23/22 ointment oxybutynin chloride 5 mg 5 mg PO DAILY 10/23/22 10/23/22 tablet,extended release 24 hr phenazopyridine 100 mg tablet 100 mg PO TID 10/23/22 10/23/22 solifenacin 10 mg tablet 10 mg PO DAILY 10/23/22 10/23/22 solifenacin 5 mg tablet 5 mg PO DAILY 10/23/22 10/23/22 Previous Rx's Medication Instructions Recorded medroxyprogesterone 150 mg/mL 150 mg IM [id number] #1 mL 05/06/21 intramuscular suspension (Depo-Provera) valacyclovir 1 gram tablet 1,000 mg PO BID PRN vulvar lesion 03/14/22 7 days #14 tabs polyethylene glycol 3350 17 17 g PO DAILY PRN constipation 05/14/22 gram/dose oral powder (Miralax) #238 grams iron polysacch cplx 150 mg 1 cap PO DAILY #90 caps 05/16/22 iron-vit B12 25 mcg-folic acid 1 mg capsule (Ferrex) cyclobenzaprine 10 mg tablet 10 mg PO BID PRN muscle spasm #60 11/24/22 tabs pantoprazole 40 mg tablet,delayed 40 mg PO DAILY #30 tabs 03/04/23 release (Protonix) sucralfate 1 gram tablet (Carafate) 1 g PO BID #30 tabs 03/04/23 Allergies Allergy/AdvReac Type Severity Reaction Status Date / Time No Known Drug Allergies Allergy Verified 03/04/23 09:57 Review of Systems Review of Systems Narrative: GENERAL: negative chills, fatigue, malaise, fever, sweats. HEENT: negative sinus pain, ear pain, sore throat RESPIRATORY: negative dyspnea, cough CARDIOVASCULAR: negative chest pain, palpitations GASTROINTESTINAL: negative nausea, vomiting, positive abdominal pain : negative dysuria, frequency, hematuria MUSCULOSKELETAL: negative muscle or bony pain SKIN: negative rash, skin lesions NEUROLOGIC: negative weakness, numbness ROS Unobtainable: All systems reviewed & are unremarkable except as noted in HPI and below Patient History Medical History Dysuria Healthy adult Iron deficiency anemia Low back pain Myofascial pain syndrome Pain on voiding Thoracic back pain Surgical History No pertinent past surgical history Status post section Family History Mother No problems noted. Father No problems noted. Grandmother No problems noted. Grandfather No problems noted. Grandmother No problems noted. Grandfather No problems noted. Brother No problems noted. Sister No problems noted. 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 EYES: Pupils equal round ENT: Mucous membranes moist. NECK: Trachea midline. CARDIOVASCULAR: Regular rate and rhythm RESPIRATORY: Clear to auscultation. Breath sounds equal bilaterally. No wheezes, rales, or rhonchi. GASTROINTESTINAL: Abdomen soft, mild reproducible left upper quadrant tenderness. No peritoneal signs. Bowel sounds are present. No CVA tenderness. EXTREMITIES: No gross deformities. BACK: No flank tenderness. NEURO: AOx4. SKIN: Warm and dry PSYCH: Not anxious, is cooperative Initial Vital Signs Initial Vital Signs: Vital Signs Temperature 98.0 F 03/04/23 09:50 Pulse Rate 94 H 03/04/23 09:50 Respiratory Rate 16 03/04/23 09:50 Blood Pressure 121/56 L 03/04/23 09:50 Pulse Oximetry 98 03/04/23 09:50 Oxygen Delivery Method Room Air 03/04/23 09:50 Course Orders Ordered: Discontinued Medications Al Hydrox/Mg Hydrox/Simethicone (Mag Hydrox/Alum/Simeth 30 Ml Udc) 30 ml PO NOW ONE Stop: 03/04/23 10:49 Last Admin: 03/04/23 10:49 Dose: 30 ml Documented By: MARICEL Al Hydrox/Mg Hydrox/Simethicone 20 ml/ Lidocaine HCl 15 ml 0 ml PO NOW ONE Stop: 03/04/23 10:25 Last Admin: 03/04/23 10:47 Dose: Not Given Documented By: MARICEL Sodium Chloride (Normal Saline 0.9%) 1,000 mls @ 1,000 mls/hr IV BOLUS ONE Stop: 03/04/23 11:23 Last Infusion: 03/04/23 12:06 Dose: 0 mls/hr Documented By: Admin: 03/04/23 10:49 Dose: 1,000 mls/hr Documented By: MARICEL Ondansetron HCl (Ondansetron 4 Mg Odt) 4 mg PO NOW PRN PRN Reason: Nausea And Vomiting Ondansetron HCl (Ondansetron 4 Mg/2 Ml Inj) 4 mg IV NOW PRN PRN Reason: Nausea And Vomiting Pantoprazole Sodium (Pantoprazole 40 Mg Vial) 40 mg IV NOW ONE Stop: 03/04/23 10:25 Last Admin: 03/04/23 10:52 Dose: 40 mg Documented By: MARICEL Vital Signs Vital signs: Vital Signs - 8 hr 03/04/23 09:50 03/04/23 09:57 03/04/23 10:00 Temperature 98.0 F Pulse Rate 94 H 88 87 Respiratory Rate 16 Blood Pressure 121/56 L Pulse Oximetry 98 98 98 Oxygen Delivery Method Room Air 03/04/23 10:30 03/04/23 11:00 03/04/23 11:33 Temperature Pulse Rate 86 86 89 Respiratory Rate Blood Pressure Pulse Oximetry 99 99 98 Oxygen Delivery Method MDM - Abdominal Pain Lab Data 03/04/23 10:26 03/04/23 10:26 Labs: Lab Results 03/04/23 03/04/23 03/04/23 Range/Units 09:57 09:57 10:26 WBC 8.1 (4.5-11.0) X10^3/uL RBC 5.13 (4.0-5.2) X10^6/uL Hgb 13.7 (12.0-16.0) g/dL Hct 40.1 (36-46) % MCV 78.2 L (80-100) fL MCH 26.7 (26-34) PG MCHC 34.1 (30-36) % RDW 13.6 (11.6-14.8) % Plt Count 329 (150-400) X10^3/uL Neut % (Auto) 73.9 (50-75) % Lymph % (Auto) 21.0 L (25-40) % Union % (Auto) 4.4 (3-14) % Eos % (Auto) 0.3 L (2-4) % Baso % (Auto) 0.4 (0-2) % Neut # (Auto) 6000 (2530-6072) /uL Lymph # (Auto) 1700 (6477-7432) /uL Union # (Auto) 400 (0-900) /uL Eos # (Auto) 0 (0-450) /uL Baso # (Auto) 0 (0-100) /uL Sodium (137-145) mmol/L Potassium (3.4-5.1) mmol/L Chloride (98-107) mmol/L Carbon Dioxide (22-32) mmol/L BUN (7-17) mg/dL Creatinine (0.52-1.04) mg/dL Estimated GFR (>60) mL/min BUN/Creatinine Ratio (6-22) Glucose (70-100) mg/dL Calcium (8.4-10.2) mg/dL Total Bilirubin (0.2-1.3) mg/dL AST (14-36) IU/L ALT (<35) IU/L Alkaline Phosphatase (38-126) U/L Total Protein (6.3-8.2) g/dL Albumin (3.5-5.0) g/dL Globulin (1.7-4.1) g/dL Albumin/Globulin Ratio (1.0-2.8) Lipase (23-300) U/L Ur Bilirubin Confirm Negative (Negative) Urine RBC 5-10/hpf H (0-5/HPF) Urine WBC 1-5/hpf (0-5/HPF) Ur Squamous Epith Cells 5-10 /hpf H (0-5/HPF) Urine Bacteria Moderate (10-30) H (None) Ur Culture Indicated? Specimen cultured 03/04/23 Range/Units 10:26 WBC (4.5-11.0) X10^3/uL RBC (4.0-5.2) X10^6/uL Hgb (12.0-16.0) g/dL Hct (36-46) % MCV (80-100) fL MCH (26-34) PG MCHC (30-36) % RDW (11.6-14.8) % Plt Count (150-400) X10^3/uL Neut % (Auto) (50-75) % Lymph % (Auto) (25-40) % Union % (Auto) (3-14) % Eos % (Auto) (2-4) % Baso % (Auto) (0-2) % Neut # (Auto) (7608-9892) /uL Lymph # (Auto) (8982-9017) /uL Union # (Auto) (0-900) /uL Eos # (Auto) (0-450) /uL Baso # (Auto) (0-100) /uL Sodium 138 (137-145) mmol/L Potassium 3.2 L (3.4-5.1) mmol/L Chloride 106 (98-107) mmol/L Carbon Dioxide 23 (22-32) mmol/L BUN 16 (7-17) mg/dL Creatinine 0.48 L (0.52-1.04) mg/dL Estimated GFR > 60 (>60) mL/min BUN/Creatinine Ratio 33.3 H (6-22) Glucose 113 H (70-100) mg/dL Calcium 8.6 (8.4-10.2) mg/dL Total Bilirubin 0.4 (0.2-1.3) mg/dL AST 25 (14-36) IU/L ALT 20 (<35) IU/L Alkaline Phosphatase 98 (38-126) U/L Total Protein 7.2 (6.3-8.2) g/dL Albumin 4.2 (3.5-5.0) g/dL Globulin 3.0 (1.7-4.1) g/dL Albumin/Globulin Ratio 1.4 (1.0-2.8) Lipase 59 (23-300) U/L Ur Bilirubin Confirm (Negative) Urine RBC (0-5/HPF) Urine WBC (0-5/HPF) Ur Squamous Epith Cells (0-5/HPF) Urine Bacteria (None) Ur Culture Indicated? Point of care testing: Point of Care Testing Test Results Negative Urine Dip Bedside Urine Glucose 100 mg/dl Bedside Urine Bilirubin + 1 Bedside Urine Ketone - Negative Urine Specific [place] 1.030 Bedside Urine Occult Blood - Negative Bedside Urine pH 6.0 Bedside Urine Protein + 30 Bedside Urine Urobilinogen - Negative Bedside Urine Nitrite - Negative Bedside Urine Leukocytes - Negative Esterase Imaging Data CT scan - abdomen/pelvis: Radiologist's Impression: [address] [address] [address] Scan Report Signed Patient: Ami Harvey MR#: [id number] : 2000 Acct:[id number] Age/Sex: 22 / F Date of Service: 03/04/23 Loc: ED Accession Number: [id number] ?? Procedure: CT abdomen pelvis w con Ordering Provider: Adi Hartman MD PROCEDURE:? CT ABDOMEN PELVIS W CON ? INDICATIONS:? IV contrast only upper abdominal pain ? TECHNIQUE:? After the administration of intravenous contrast, axial sections acquired from the lung bases to the pubic symphysis.? Coronal and sagittal reformats were performed.? For radiation dose reduction, the following was used:? automated exposure control, adjustment of mA and/or kV according to patient size.? ? COMPARISON:? [facility], CT, CT ABDOMEN PELVIS W CON, 05/25/2021, 0:58. ? FINDINGS:? Image quality:? Excellent.? ? Lung bases:? Unremarkable. Heart:? No significant findings. ? ABDOMEN: Liver:? Unremarkable.? ? Gallbladder:? Unremarkable.? ? Biliary ducts:? Unremarkable.? ? Pancreas:? Unremarkable.? ? Spleen:? Unremarkable.? ? Adrenal Glands:? Unremarkable.? ? Kidneys and Ureters:? Unremarkable.? ? ? Stomach and Bowel:? Stomach, small bowel loops, and colon are unremarkable.? Normal appendix. Peritoneum:? No abnormal intraperitoneal fluid.? No free air.? ? Ventral Wall: ? No hernias.? Abdominal Nodes:? No retroperitoneal or mesenteric adenopathy by size criteria.? Vessels:? Aorta and inferior vena cava are normal in size.? ? PELVIS: Pelvic Organs:? Unremarkable.? ? Bladder:? Unremarkable.? ? Pelvic Nodes: No enlarged lymph nodes.? Miscellaneous: No hernias are seen. ? ? ? Bones:? Unremarkable.? IMPRESSION:? ? No cause for patient's symptoms is identified.? No acute abnormality is seen within the abdomen or pelvis. ? ? Dictated by: Yuriy Ellis M.D. on 03/04/2023 at 12:00 ? ? Approved by: Yuriy Ellis M.D. on 03/04/2023 at 12:04 ? [facility] Narrative Medical decision making narrative: Patient here with for complaints of left upper quadrant pain that started at 7:00 a.m. this morning. Is dull sharp pain. Does not radiate. No nausea or vomiting. No recent stressors. No changes in diet. Is not on any antacids. No recent stomach discomfort with eating. No urinary complaints. No diarrhea. Denies . No chest pain or back pain. Has not tried any medications for this problem After history and exam CBC CMP lipase test GI cocktail Protonix normal saline MDM CC: Left upper quadrant pain Complicating co-morbidities: None Data collected from: Patient and Medical records reviewed: No recent visit for this complaint Differential considered: Includes but not limited to gastritis GERD pancreatitis colitis cholecystitis Exam documented above, pertinent findings include: Tender left upper quadrant Lab Test results independently reviewed as above. Pertinent findings: WBC 8.1 urinalysis negative moderate bacteria 1- 5 WBC CBC shows WBC 8.1 hemoglobin 13.7 sodium 138 potassium 3.2 GFR greater than 60 AST 25 ALT 20 Imaging studies independently reviewed: CT abdomen pelvis no acute findings Treatments: Zofran normal saline GI cocktail Protonix Re-evaluations: 12:56 p.m.. Patient pain-free. Was sleeping. Awoke her for results. She got relief with GI cocktail Protonix. Labs and imaging and exam are reassuring. Likely developing gastritis. Reviewed with her dietary changes. Not toxic at discharge. Patient desires discharge home. at bedside. Discussion: Appropriate for discharge home. Patient pain-free after GI cocktail. Exam laboratory studies imaging are reassuring. Return precautions reviewed with her. Nontoxic at discharge. Prescription for Carafate and Protonix provided. She desires discharge home. Agrees with treatment plan Diagnosis: Abdominal pain/gastritis Discharge Plan Departure Patient Disposition: Home Clinical Impression: Abdominal pain Instructions: DI for Gastroesophageal Reflux Disease (GERD), DI for Gastritis Activity Restrictions/Additional Instructions: See family doctor in a week for re-evaluation. No fried fatty greasy foods or carbonated drinks or spicy foods. Symptoms today may be a problem with her stomach/irritation of the stomach/gastritis. Prescription medication has been sent to your [facility] pharmacy to hop picker today. Return if worse if any questions or concerns. Call provided primary care referral phone number to establish family doctor. Call [phone] Prescriptions: New pantoprazole [Protonix] 40 mg tablet,delayed release (DR/EC) 40 mg PO DAILY Qty: 30 0RF sucralfate [Carafate] 1 gram tablet 1 g PO BID Qty: 30 0RF No Action polyethylene glycol 3350 [Miralax] 17 gram/dose powder 17 g PO DAILY PRN (Reason: constipation) Qty: 238 3RF valacyclovir 1 gram tablet 1,000 mg PO BID PRN (Reason: vulvar lesion ) 7 Days Qty: 14 1RF Ferrex 150 Forte 150-25-1 mg-mcg-mg capsule 1 cap PO DAILY Qty: 90 1RF medroxyprogesterone [Depo-Provera] 150 mg/mL suspension 150 mg IM [id number] Qty: 1 3RF Rx Instructions: Next due Jul 22-Aug 05 2021 solifenacin 10 mg tablet 10 mg PO DAILY solifenacin 5 mg tablet 5 mg PO DAILY phenazopyridine 100 mg tablet 100 mg PO TID Patient Comments: TAKE 1 TABLET BY MOUTH THREE TIMES DAILY AFTER MEALS. hydrocortisone 2.5 % ointment 1 applic topical DAILY oxybutynin chloride 5 mg tablet extended release 24hr 5 mg PO DAILY cyclobenzaprine 10 mg tablet 10 mg PO BID PRN (Reason: muscle spasm) Qty: 60 1RF Referrals: Alma Clements MD [Primary Care Provider] - Stand Alone Forms: Patient Portal/API
[2023-03-04 10:26] LABS: Culture Indicated Urine Specimen Cultured
[2023-03-04 10:36] LABS: Add Manual Diff / Slide Review NO; Basophils Absolute Auto 0 /uL (0-100); Basophils Percent Auto 0.4 % (0-2); Eosinophils Absolute Auto 0 /uL (0-450); Eosinophils Percent Auto 0.3 % (2-4); Hematocrit 40.1 % (36-46); Hemoglobin 13.7 g/dL (12.0-16.0); Lymphocytes Absolute Auto 1700 /uL (1100-4500); Mean Corpuscular HGB Conc 34.1 % (30-36); Mean Corpuscular Hemoglobin 26.7 PG (26-34); Mean Corpuscular Volume 78.2 fL (80-100); Monocytes Absolute Auto 400 /uL (0-900); Monocytes Percent Auto 4.4 % (3-14); Neutrophils Absolute Auto 6000 /uL (1500-7000); Neutrophils Percent Auto 73.9 % (50-75); Platelet Count 329 X10^3/uL (150-400); Red Blood Cell Count 5.13 X10^6/uL (4.0-5.2); Red Cell Distribution Width 13.6 % (11.6-14.8); White Blood Cell Count 8.1 X10^3/uL (4.5-11.0)
[2023-03-04] MEDS: SODIUM CHLORIDE 0.9% 1,000 ML 1000 ML IV (10:49)
[2023-03-04] MEDS: MAG HYDROX/ALUM/SIMETH 30 ML UDC PO (10:49)
[2023-03-04 10:51] LABS: Alanine Aminotransferase 20 IU/L (<35); Albumin 4.2 g/dL (3.5-5.0); Albumin Globulin Ratio 1.4 (1.0-2.8); Alkaline Phosphatase 98 U/L (38-126); Aspartate Aminotransferase 25 IU/L (14-36); BUN Creatinine Ratio 33.3 (6-22); Bilirubin Total 0.4 mg/dL (0.2-1.3); Blood Urea Nitrogen 16 mg/dL (7-17); Calcium 8.6 mg/dL (8.4-10.2); Carbon Dioxide 23 mmol/L (22-32); Chloride 106 mmol/L (98-107); Estimated Glomerular Filt Rate > 60 mL/min (>60); Glucose 113 mg/dL (70-100); HEMOLYSIS < 15 (0-50); Lipase 59 U/L (23-300); Potassium 3.2 mmol/L (3.4-5.1); Sodium 138 mmol/L (137-145); Total Protein 7.2 g/dL (6.3-8.2)
[2023-03-04] MEDS: PANTOPRAZOLE 40 MG VIAL IV (10:52)
--- NOTE | 2023-03-04 11:05 | DI.CT.S_ITS ---
PROCEDURE: CT ABDOMEN PELVIS W CON INDICATIONS: IV contrast only upper abdominal pain TECHNIQUE: After the administration of intravenous contrast, axial sections acquired from the lung bases to the pubic symphysis. Coronal and sagittal reformats were performed. For radiation dose reduction, the following was used: automated exposure control, adjustment of mA and/or kV according to patient size. COMPARISON: [facility], CT, CT ABDOMEN PELVIS W CON, 05/25/2021, 0:58. FINDINGS: Image quality: Excellent. Lung bases: Unremarkable. Heart: No significant findings. ABDOMEN: Liver: Unremarkable. Gallbladder: Unremarkable. Biliary ducts: Unremarkable. Pancreas: Unremarkable. Spleen: Unremarkable. Adrenal Glands: Unremarkable. Kidneys and Ureters: Unremarkable. Stomach and Bowel: Stomach, small bowel loops, and colon are unremarkable. Normal appendix. Peritoneum: No abnormal intraperitoneal fluid. No free air. Ventral Wall: No hernias. Abdominal Nodes: No retroperitoneal or mesenteric adenopathy by size criteria. Vessels: Aorta and inferior vena cava are normal in size. PELVIS: Pelvic Organs: Unremarkable. Bladder: Unremarkable. Pelvic Nodes: No enlarged lymph nodes. Miscellaneous: No hernias are seen. Bones: Unremarkable. IMPRESSION: No cause for patient's symptoms is identified. No acute abnormality is seen within the abdomen or pelvis. Dictated by: Yuriy Ellis M.D. on 03/04/2023 at 12:00 Approved by: Yuriy Ellis M.D. on 03/04/2023 at 12:04
== END 2023-03-04 13:04 | disposition home or self-care (01) ==
PROVIDERS: Emergency Provider Emergency Medicine; Family Provider Family Medicine; PCP Family Medicine
DX: R10.12 Left upper quadrant pain (principal)
CPT/HCPCS: 36415; 74177; 80053; 81003; 81015; 81025; 83690; 85025; 87086; 96361; 96374; 99284; C9113; Q9967

== ENCOUNTER 2023-10-07 22:16 | Emergency (ER) | payer OTHER, MEDICAID, SELFPAY ==
[2023-10-07 22:24] VITALS: BP 129/73; PULSE 82; RESP 18; TEMP 36.6; O2SAT 99; BMI 27.0
[2023-10-07 23:28] LABS: Influenza A - CEPHEID Flu A NEGATIVE (NEGATIVE); Influenza B - CEPHEID Flu B NEGATIVE (NEGATIVE); Respiratory Syncytial Virus Negative (Negative)
[2023-10-07 23:29] LABS: COVID-19 CEPHEID 4-PLEX PCR Negative (Negative)
--- NOTE | 2023-10-08 00:37 | ED.GENADULT ---
HPI - General Adult General Chief complaint: Upper Respiratory Symptoms Stated complaint: cough, feels like throat is closing Time Seen by Provider: 10/07/23 23:04 Source: patient Mode of arrival: Ambulatory History of Present Illness HPI narrative: 22-year-old woman with no significant medical history presents with 4 days of cough, sore throat, hoarseness and headaches. This evening she was coughing so much she had an episode of emesis. She does not describe significant fevers, the cough is nonproductive she has not having abdominal pain or diarrhea. Related Data Home Medications Medication Instructions Recorded Confirmed hydrocortisone 2.5 % topical 1 applic topical DAILY 10/23/22 10/23/22 ointment oxybutynin chloride 5 mg 5 mg PO DAILY 10/23/22 10/23/22 tablet,extended release 24 hr phenazopyridine 100 mg tablet 100 mg PO TID 10/23/22 10/23/22 solifenacin 10 mg tablet 10 mg PO DAILY 10/23/22 10/23/22 solifenacin 5 mg tablet 5 mg PO DAILY 10/23/22 10/23/22 Previous Rx's Medication Instructions Recorded medroxyprogesterone 150 mg/mL 150 mg IM [id number] #1 mL 05/06/21 intramuscular suspension (Depo-Provera) valacyclovir 1 gram tablet 1,000 mg PO BID PRN vulvar lesion 03/14/22 7 days #14 tabs polyethylene glycol 3350 17 17 g PO DAILY PRN constipation 05/14/22 gram/dose oral powder (Miralax) #238 grams iron polysacch cplx 150 mg 1 cap PO DAILY #90 caps 05/16/22 iron-vit B12 25 mcg-folic acid 1 mg capsule (Ferrex) cyclobenzaprine 10 mg tablet 10 mg PO BID PRN muscle spasm #60 11/24/22 tabs pantoprazole 40 mg tablet,delayed 40 mg PO DAILY #30 tabs 03/04/23 release (Protonix) sucralfate 1 gram tablet (Carafate) 1 g PO BID #30 tabs 03/04/23 benzonatate 200 mg capsule 200 mg PO BID-TID PRN cough #14 10/08/23 caps ondansetron 4 mg disintegrating 4 mg PO Q8H PRN nausea and 10/08/23 tablet vomiting #10 tabs Allergies Allergy/AdvReac Type Severity Reaction Status Date / Time No Known Drug Allergies Allergy Verified 03/04/23 09:57 Review of Systems Review of Systems Narrative: Pertinent positive and negative findings as per HPI Patient History Medical History Low back pain Thoracic back pain Myofascial pain syndrome Iron deficiency anemia Dysuria Pain on voiding Healthy adult Surgical History Status post section No pertinent past surgical history Family History Mother No problems noted. Father No problems noted. Grandmother No problems noted. Grandfather No problems noted. Grandmother No problems noted. Grandfather No problems noted. Brother No problems noted. Sister No problems noted. 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 feliciano/advent: Yarsanism special feliciano needs: No seatbelt use: always helmet use: Yes Smoking Status: Never smoker second hand exposure: No alcohol intake: never substance use type: does not use and marijuana during the past year weight has: remained stable well-balanced diet: daily or most days daily servings fruits/ve-4 caffeine: No eating out: 1-3 times/week Smoking Status: Never smoker alcohol intake frequency: other Substance Use Type: does not use Exam Initial Vital Signs Initial Vital Signs: Vital Signs Temperature 97.8 F 10/07/23 22:24 Pulse Rate 82 10/07/23 22:24 Respiratory Rate 18 10/07/23 22:24 Blood Pressure 129/73 10/07/23 22:24 Pulse Oximetry 99 10/07/23 22:24 Oxygen Delivery Method Room Air 10/07/23 22:24 General: Appears to feel unwell but in no acute distress. Able to give a complete and coherent history. Well-nourished well-developed HEENT: Moist mucous membranes, normal sclera with reactive pupils, voices hoarse, no pharyngeal erythema Neck: Mild bilateral cervical adenopathy Respiratory: Lungs are clear to auscultation, no wheezing no rales no rhonchi. Full and symmetrical air movement Cardiac: Regular rate and rhythm no murmurs no bruits Abdomen: Soft, nontender, good bowel tones, no flank pain Skin: Warm and dry, no rashes Psych: Cooperative, appropriate insight and affect Course Orders Ordered: ED Orders 10/07/23 22:45 Covid-19 + FLU A/B + RSV - PCR Stat Vital Signs Vital signs: Vital Signs - 8 hr 10/07/23 22:24 Temperature 97.8 F Pulse Rate 82 Respiratory Rate 18 Blood Pressure 129/73 Pulse Oximetry 99 Oxygen Delivery Method Room Air Medical Decision Making Lab Data Labs: Lab Results 10/07/23 Range/Units 22:45 SARS-CoV-2 (PCR) Negative (Negative) Influenza A (RT-PCR) Flu a negative (NEGATIVE) Influenza B (RT-PCR) Flu b negative (NEGATIVE) RSV (PCR) Negative (Negative) MDM Narrative Medical decision making narrative: CC: Cough and sore throat Data collected from: patient Differential considered: Viral syndrome, bacterial or viral pharyngitis, epiglottitis, peritonsillar abscess Exam documented above, pertinent findings include: Minor anterior cervical adenopathy, remainder of exam is benign Lab Test results independently reviewed as above. Pertinent findings: COVID, RSV influenza a and influenza B are all negative Treatments: Ibuprofen, Tylenol, Zofran, Tessalon Discussion: 22-year-old woman with 4 days of upper respiratory symptoms consistent with viral infection. There was no evidence of secondary infection, epiglottitis, peritonsillar abscess, or other complication that would necessitate blood work or advanced imaging. She does not need to be admitted at this time. We talked about symptomatic treatment, anticipated course of symptoms as well as medications to help suppress the cough. At this point she is safe for discharge home Discharge Plan Departure Patient Disposition: Home Clinical Impression: Upper respiratory infection Instructions: DI for Viral Upper Respiratory Infection -- Adult Activity Restrictions/Additional Instructions: Thank you for coming in today I am sorry that you are feeling well. You do have a virus. We did check for COVID, respiratory syncytial virus and influenza and you do not have these. There was no sign of a bacterial infection and you do not need antibiotics. It is common to have headaches with viral infections. During the day I believe using your Excedrin migraine we will be helpful however this medicine has caffeine in it and at night you may find that ibuprofen and Tylenol helps you sleep better. Using 400 mg of ibuprofen (2 [id number] pills) and 1 Tylenol every 6 hours can be very helpful in controlling pain. I have given you a prescription for ondansetron to help with nausea as needed as well as Tessalon Perles to help with cough It is important to maintain hydration If you find that you are getting worse or develop any new symptoms, please feel free to return to the emergency department for further evaluation. Prescriptions: New benzonatate 200 mg capsule 200 mg PO BID-TID PRN (Reason: cough) Qty: 14 0RF ondansetron 4 mg tablet,disintegrating 4 mg PO Q8H PRN (Reason: nausea and vomiting) Qty: 10 0RF No Action polyethylene glycol 3350 [Miralax] 17 gram/dose powder 17 g PO DAILY PRN (Reason: constipation) Qty: 238 3RF valacyclovir 1 gram tablet 1,000 mg PO BID PRN (Reason: vulvar lesion ) 7 Days Qty: 14 1RF Ferrex 150 Forte 150-25-1 mg-mcg-mg capsule 1 cap PO DAILY Qty: 90 1RF medroxyprogesterone [Depo-Provera] 150 mg/mL suspension 150 mg IM [id number] Qty: 1 3RF Rx Instructions: Next due Jul 22-Aug 05 2021 pantoprazole [Protonix] 40 mg tablet,delayed release (DR/EC) 40 mg PO DAILY Qty: 30 0RF sucralfate [Carafate] 1 gram tablet 1 g PO BID Qty: 30 0RF solifenacin 10 mg tablet 10 mg PO DAILY solifenacin 5 mg tablet 5 mg PO DAILY phenazopyridine 100 mg tablet 100 mg PO TID Patient Comments: TAKE 1 TABLET BY MOUTH THREE TIMES DAILY AFTER MEALS. hydrocortisone 2.5 % ointment 1 applic topical DAILY oxybutynin chloride 5 mg tablet extended release 24hr 5 mg PO DAILY cyclobenzaprine 10 mg tablet 10 mg PO BID PRN (Reason: muscle spasm) Qty: 60 1RF Referrals: Alma Clements MD [Primary Care Provider] - Stand Alone Forms: Patient Portal/API
[2023-10-08] MEDS: BENZONATATE 100 MG CAPSULE PO (00:58)
[2023-10-08] MEDS: IBUPROFEN 400 MG TABLET PO (00:58)
[2023-10-08] MEDS: ACETAMINOPHEN 325 MG TABLET PO (00:58)
[2023-10-08] MEDS: ONDANSETRON 4 MG ODT SL (00:59)
[2023-10-08 01:01] VITALS: BP 116/65; PULSE 66; RESP 18; O2SAT 98
== END 2023-10-08 01:02 | disposition home or self-care (01) ==
PROVIDERS: Emergency Provider Emergency Medicine; Family Provider Family Medicine; PCP Family Medicine
DX: J06.9 Acute upper respiratory infection, unspecified (principal)
CPT/HCPCS: 0241U; 99283

== ENCOUNTER 2023-11-02 16:25 | Emergency (ER) | payer OTHER, MEDICAID, SELFPAY ==
[2023-11-02 16:43] VITALS: BP 112/62; PULSE 82; RESP 16; TEMP 36.8; O2SAT 98; BMI 26.6
--- NOTE | 2023-11-02 19:29 | ED.GENADULT ---
HPI - General Adult General Chief complaint: Urogenital-Female Stated complaint: Pssible UTI and left side pain Time Seen by Provider: 11/02/23 17:55 Source: patient Mode of arrival: Ambulatory History of Present Illness HPI narrative: 22-year-old female presents for left-sided pain for 4 days. Worse with movement and stretching. States that even putting on a bra is painful because it will touch her left side and it hurts. Took ibuprofen yesterday for pain with minimal relief. Also concerned about urinary frequency. Related Data Home Medications Medication Instructions Recorded Confirmed hydrocortisone 2.5 % topical 1 applic topical DAILY 10/23/22 10/23/22 ointment oxybutynin chloride 5 mg 5 mg PO DAILY 10/23/22 10/23/22 tablet,extended release 24 hr phenazopyridine 100 mg tablet 100 mg PO TID 10/23/22 10/23/22 solifenacin 10 mg tablet 10 mg PO DAILY 10/23/22 10/23/22 solifenacin 5 mg tablet 5 mg PO DAILY 10/23/22 10/23/22 Previous Rx's Medication Instructions Recorded medroxyprogesterone 150 mg/mL 150 mg IM [id number] #1 mL 05/06/21 intramuscular suspension (Depo-Provera) valacyclovir 1 gram tablet 1,000 mg PO BID PRN vulvar lesion 03/14/22 7 days #14 tabs polyethylene glycol 3350 17 17 g PO DAILY PRN constipation 05/14/22 gram/dose oral powder (Miralax) #238 grams iron polysacch cplx 150 mg 1 cap PO DAILY #90 caps 05/16/22 iron-vit B12 25 mcg-folic acid 1 mg capsule (Ferrex) cyclobenzaprine 10 mg tablet 10 mg PO BID PRN muscle spasm #60 11/24/22 tabs pantoprazole 40 mg tablet,delayed 40 mg PO DAILY #30 tabs 03/04/23 release (Protonix) sucralfate 1 gram tablet (Carafate) 1 g PO BID #30 tabs 03/04/23 benzonatate 200 mg capsule 200 mg PO BID-TID PRN cough #14 10/08/23 caps ondansetron 4 mg disintegrating 4 mg PO Q8H PRN nausea and 10/08/23 tablet vomiting #10 tabs methocarbamol 500 mg tablet 500 mg PO TID #30 tabs 05/13/24 Allergies Allergy/AdvReac Type Severity Reaction Status Date / Time No Known Drug Allergies Allergy Verified 03/04/23 09:57 Review of Systems Review of Systems Narrative: See HPI Patient History Medical History Low back pain Thoracic back pain Myofascial pain syndrome Iron deficiency anemia Dysuria Pain on voiding Healthy adult Surgical History Status post section No pertinent past surgical history Family History Mother No problems noted. Father No problems noted. Grandmother No problems noted. Grandfather No problems noted. Grandmother No problems noted. Grandfather No problems noted. Brother No problems noted. Sister No problems noted. 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 feliciano/pentecostal: Adventism special feliciano needs: No seatbelt use: always helmet use: Yes Smoking Status: Never smoker second hand exposure: No alcohol intake: never substance use type: does not use and marijuana during the past year weight has: remained stable well-balanced diet: daily or most days daily servings fruits/ve-4 caffeine: No eating out: 1-3 times/week Smoking Status: Never smoker alcohol intake frequency: other Substance Use Type: does not use Exam Initial Vital Signs Initial Vital Signs: Vital Signs Temperature 98.2 F 11/02/23 16:43 Pulse Rate 82 11/02/23 16:43 Respiratory Rate 16 11/02/23 16:43 Blood Pressure 112/62 11/02/23 16:43 Pulse Oximetry 98 11/02/23 16:43 Oxygen Delivery Method Room Air 11/02/23 16:43 Const: Awake, alert, no acute distress, nontoxic appearing Cardiac: regular rate, regular rhythm RESP: unlabored, clear bilaterally GI: Soft, nontender, nondistended MSK: Atraumatic, generalized tenderness to palpation along left mid axillary line Skin: Warm, Dry, intact, no rashes Neuro: AO x3, CN II-XII grossly intact, moves all extremities Course Orders Ordered: ED Orders 11/02/23 19:30 XR ribs LT min 3V w CXR1V Stat Discontinued Medications Acetaminophen (Acetaminophen 325 Mg Tablet) 975 mg PO NOW ONE Stop: 11/02/23 19:30 Last Admin: 11/02/23 19:38 Dose: 975 mg Documented By: BRENNON Ketorolac Tromethamine (Ketorolac 30 Mg/Ml Vial) 30 mg IM NOW ONE Stop: 11/02/23 19:30 Last Admin: 11/02/23 19:38 Dose: 30 mg Documented By: BRENNON Methocarbamol (Methocarbamol 500 Mg Tablet) 500 mg PO NOW ONE Stop: 11/02/23 19:30 Last Admin: 11/02/23 19:38 Dose: 500 mg Documented By: BRENNON Ondansetron HCl (Ondansetron 4 Mg Odt) 4 mg SL NOW PRN PRN Reason: Nausea And Vomiting Ondansetron HCl (Ondansetron 4 Mg/2 Ml Inj) 4 mg IV NOW PRN PRN Reason: Nausea And Vomiting Vital Signs Vital signs: Vital Signs - 8 hr 11/02/23 21:05 Pulse Rate 75 Respiratory Rate 16 Blood Pressure 97/54 L Pulse Oximetry 99 Oxygen Delivery Method Room Air Medical Decision Making Lab Data Labs: Point of Care Testing Test Results Negative Urine Dip Bedside Urine Glucose 1000 mg/dl Bedside Urine Bilirubin - Negative Bedside Urine Ketone - Negative Urine Specific Tullos 1.030 Bedside Urine Occult Blood - Negative Bedside Urine pH 6.0 Bedside Urine Protein - Negative Bedside Urine Urobilinogen - Negative Bedside Urine Nitrite - Negative Bedside Urine Leukocytes - Negative Esterase Point of care testing: Point of Care Testing Test Results Negative Urine Dip Bedside Urine Glucose 1000 mg/dl Bedside Urine Bilirubin - Negative Bedside Urine Ketone - Negative Urine Specific [place] 1.030 Bedside Urine Occult Blood - Negative Bedside Urine pH 6.0 Bedside Urine Protein - Negative Bedside Urine Urobilinogen - Negative Bedside Urine Nitrite - Negative Bedside Urine Leukocytes - Negative Esterase Imaging Data Chest x-ray: My Impression: PROCEDURE: XR RIBS LT MIN 3V W CXR1V INDICATIONS: L LOWER RIB PAIN TECHNIQUE: 2 views of the ribs were acquired, along with a single view chest. COMPARISON: None. FINDINGS: Surgical changes and devices: None. Bones and chest wall: No fractures or dislocations. No suspicious bony lesions. Overlying soft tissues appear unremarkable. Lungs and pleura: No pleural effusions or pneumothorax. Lungs appear clear. Mediastinum: Mediastinal contours appear normal. Heart size is normal. IMPRESSION: No displaced rib fracture or pneumothorax. Dictated by: Junior Burleson M.D. on 11/02/2023 at 20:26 Approved by: Junior Burleson M.D. on 11/02/2023 at 20:27 [facility] Narrative Medical decision making narrative: Left-sided pain along mid axillary region. Abdomen is soft, absolutely no reproducible tenderness to light or deep palpation, no pain in the back or CVA regions. Based on patient's description of pain as well as exam findings this is likely musculoskeletal in nature, possible muscle strain. X-ray series negative for acute findings. Patient given pain medications with improvement in symptoms. She requested that Robaxin be sent to her pharmacy, which was done. Patient advised to take Tylenol and ibuprofen with the muscle relaxers as well as utilize gentle stretching exercises. Discharge Plan Departure Patient Disposition: Home Clinical Impression: Left sided abdominal pain Instructions: DI for Abdominal Muscle Strain Activity Restrictions/Additional Instructions: Your x-ray series was normal. I do recommend taking 400 mg of ibuprofen and 1000 mg of Tylenol every 4-6 hours for pain, do not take anymore than 4000 mg total of Tylenol daily. A muscle relaxer has been sent to your pharmacy, this may make you drowsy, so be careful when taking this medication. Do not take it with alcohol or before operating heavy machinery such as driving. Prescriptions: New methocarbamol 500 mg tablet 500 mg PO TID Qty: 30 0RF No Action polyethylene glycol 3350 [Miralax] 17 gram/dose powder 17 g PO DAILY PRN (Reason: constipation) Qty: 238 3RF valacyclovir 1 gram tablet 1,000 mg PO BID PRN (Reason: vulvar lesion ) 7 Days Qty: 14 1RF Ferrex 150 Forte 150-25-1 mg-mcg-mg capsule 1 cap PO DAILY Qty: 90 1RF medroxyprogesterone [Depo-Provera] 150 mg/mL suspension 150 mg IM [id number] Qty: 1 3RF Rx Instructions: Next due Jul 22-Aug 05 2021 pantoprazole [Protonix] 40 mg tablet,delayed release (DR/EC) 40 mg PO DAILY Qty: 30 0RF sucralfate [Carafate] 1 gram tablet 1 g PO BID Qty: 30 0RF benzonatate 200 mg capsule 200 mg PO BID-TID PRN (Reason: cough) Qty: 14 0RF ondansetron 4 mg tablet,disintegrating 4 mg PO Q8H PRN (Reason: nausea and vomiting) Qty: 10 0RF solifenacin 10 mg tablet 10 mg PO DAILY solifenacin 5 mg tablet 5 mg PO DAILY phenazopyridine 100 mg tablet 100 mg PO TID Patient Comments: TAKE 1 TABLET BY MOUTH THREE TIMES DAILY AFTER MEALS. hydrocortisone 2.5 % ointment 1 applic topical DAILY oxybutynin chloride 5 mg tablet extended release 24hr 5 mg PO DAILY cyclobenzaprine 10 mg tablet 10 mg PO BID PRN (Reason: muscle spasm) Qty: 60 1RF Referrals: Alma Clements MD [Primary Care Provider] - Stand Alone Forms: Patient Portal/API
[2023-11-02] MEDS: ACETAMINOPHEN 325 MG TABLET 975 MG PO (19:38)
[2023-11-02] MEDS: methocarbamoL 500 MG TABLET PO (19:38)
[2023-11-02] MEDS: KETOROLAC 30 MG/ML VIAL IM (19:38)
[2023-11-02 21:05] VITALS: BP 97/54; PULSE 75; RESP 16; O2SAT 99
== END 2023-11-02 21:23 | disposition home or self-care (01) ==
PROVIDERS: Emergency Provider Emergency Medicine; Family Provider Family Medicine; PCP Family Medicine
DX: R10.9 Unspecified abdominal pain (principal); R07.81 Pleurodynia
CPT/HCPCS: 71101; 81003; 81025; 96372; 99283; J1885

== ENCOUNTER → 2023-12-03 16:50 | Outpatient (CLI) | payer OTHER, MEDICAID, SELFPAY | PROVIDERS: Family Provider Family Medicine; PCP Family Medicine; Visit Provider Nurse Practitioner Family | DX: R30.0 Dysuria (principal) | CPT/HCPCS: 87086; 87210 ==

== ENCOUNTER → 2024-04-19 12:18 | Outpatient (CLI) | payer OTHER, MEDICAID, SELFPAY ==
[2024-04-19 13:48] LABS: HCG Quantitative /Beta subunit 31.93 mIU/mL
== END ==
PROVIDERS: Family Provider Family Medicine; PCP Family Medicine; Referring Provider Family Medicine; Visit Provider Family Medicine
DX: R30.0 Dysuria (principal); R39.9 Unspecified symptoms and signs involving the genitourinary system
CPT/HCPCS: 36415; 81002; 81025; 84702; 87086

== ENCOUNTER → 2024-04-25 12:55 | Outpatient (CLI) | payer OTHER, MEDICAID, SELFPAY ==
[2024-04-25 13:31] LABS: Add Manual Diff / Slide Review NO; Basophils Absolute Auto 100 /uL (0-100); Basophils Percent Auto 0.6 % (0-2); Eosinophils Absolute Auto 100 /uL (0-450); Eosinophils Percent Auto 0.5 % (2-4); Hematocrit 42.4 % (36-46); Hemoglobin 14.3 g/dL (12.0-16.0); Lymphocytes Absolute Auto 2300 /uL (1100-4500); Lymphocytes Percent Auto 23.5 % (25-40); Mean Corpuscular HGB Conc 33.8 % (30-36); Mean Corpuscular Hemoglobin 27.6 PG (26-34); Mean Corpuscular Volume 81.5 fL (80-100); Monocytes Absolute Auto 400 /uL (0-900); Monocytes Percent Auto 4.4 % (3-14); Neutrophils Absolute Auto 7100 /uL (1500-7000); Platelet Count 385 X10^3/uL (150-400); Red Blood Cell Count 5.19 X10^6/uL (4.0-5.2); Red Cell Distribution Width 13.7 % (11.6-14.8)
[2024-04-25 13:46] LABS: Alanine Aminotransferase 15 IU/L (<35); Aspartate Aminotransferase 24 IU/L (14-36); Blood Urea Nitrogen 13 mg/dL (7-17); Estimated Glomerular Filt Rate > 60 mL/min (>60); Uric Acid 2.8 mg/dL (2.5-6.2)
[2024-04-25 14:04] LABS: HCG Quantitative /Beta subunit 690.52 mIU/mL
[2024-04-25 14:50] LABS: Appearance Urine UA CLEAR; Bilirubin Urine UA NEGATIVE (NEGATIVE); Color Urine UA YELLOW; Glucose Urine UA 1+ g/dL (Negative); Ketones Urine UA 1+ (NEGATIVE); Leukocyte Esterase Urine UA NEGATIVE (NEGATIVE); Nitrite Urine UA NEGATIVE (Negative); Occult Blood Urine UA NEGATIVE (Negative); Protein Urine UA TRACE (Negative); Specific Gravity Urine UA 1.025 (1.000-1.035); Urobilinogen Urine UA 0.2 E.U./dL (0.2)
[2024-04-25 14:54] LABS: Bacteria Urine None Seen; RBC Urine None Seen (0-5/HPF); Squamous Epithelial Cell Urine None Seen (0-5/HPF); Urine Volume 10mL (spun); WBC Urine None Seen (0-5/HPF)
[2024-04-25 15:31] LABS: HIV 1 & 2 Ab/Ag 4th Gen Combo NEGATIVE (NEGATIVE); Hep C Virus Ab w/Reflex Quant NEGATIVE s/c (NEGATIVE); Hepatitis B Surface Antigen NEGATIVE s/c (NEGATIVE); Rubella Antibody IgG 14.6 IU/mL (>15)
[2024-04-27 06:07] LABS: RPR Screen Non Reactive (Non Reactive)
[2024-04-27 08:36] LABS: Varicella IgG Antibody Reactive (Non Reactive)
== END ==
PROVIDERS: Family Provider Family Medicine; PCP Family Medicine; Referring Provider Family Medicine; Visit Provider Family Medicine
DX: O09.299 Supervision of pregnancy with other poor reproductive or obstetric history, unspecified trimester (principal); Z3A.35 35 weeks gestation of pregnancy
CPT/HCPCS: 36415; 80055; 81003; 81015; 82565; 84450; 84460; 84520; 84550; 84702; 86787; 86803; 86850; 86900; 86901; 87086; 87389

== ENCOUNTER → 2024-04-27 11:55 | Outpatient (CLI) | payer OTHER, MEDICAID, SELFPAY ==
[2024-04-27 13:24] LABS: HCG Quantitative /Beta subunit 1548.1 mIU/mL
== END ==
PROVIDERS: Family Provider Family Medicine; PCP Family Medicine; Referring Provider Family Medicine; Visit Provider Family Medicine
DX: Z34.91 Encounter for supervision of normal pregnancy, unspecified, first trimester (principal); Z3A.01 Less than 8 weeks gestation of pregnancy
CPT/HCPCS: 36415; 84702

== ENCOUNTER 2024-04-28 20:42 | Emergency (ER) | payer OTHER, MEDICAID, SELFPAY ==
[2024-04-28 20:43] VITALS: BP 116/67; PULSE 66; RESP 16; TEMP 37; O2SAT 97; BMI 26.6
--- NOTE | 2024-04-28 21:25 | DI.US.S_ITS ---
PROCEDURE: US OB <= 14 WEEKS FETUS INDICATIONS: Vaginal bleeding early OUTSIDE/PRIOR DATING DATA: Last menstrual period (LMP): 02/24/2024. LMP-based estimated date of delivery (DONNA): 11/30/2024. TECHNIQUE: Real-time scanning was performed of the fetus and maternal pelvic organs, with image documentation. Endovaginal scanning was also performed to better visualize the fetus and maternal ovaries. COMPARISON: [facility], US, OB <= 14 WEEKS FETUS, 10/17/2020, 12:35. FINDINGS: Intrauterine gestational sac with yolk sac is present. No pole identified. The gestational sac mean diameter is 0.5 cm. IMPRESSION: Intrauterine gestational sac with yolk sac. of unknown location. No pole. Clinical and imaging follow-up in 14 days or sooner is advised Dictated by: Antonio Callejas M.D. on 04/28/2024 at 22:15 Approved by: Antonio Callejas M.D. on 04/28/2024 at 22:17
[2024-04-28 22:18] VITALS: BP 118/57
[2024-04-28 22:19] VITALS: PULSE 85; O2SAT 97
[2024-04-28 22:31] VITALS: PULSE 84; O2SAT 99
[2024-04-28 23:00] VITALS: PULSE 83; O2SAT 99
[2024-04-28 23:04] LABS: Add Manual Diff / Slide Review NO; Basophils Absolute Auto 100 /uL (0-100); Basophils Percent Auto 0.5 % (0-2); Eosinophils Absolute Auto 100 /uL (0-450); Eosinophils Percent Auto 0.6 % (2-4); Hematocrit 38.9 % (36-46); Lymphocytes Absolute Auto 3800 /uL (1100-4500); Lymphocytes Percent Auto 31.8 % (25-40); Mean Corpuscular HGB Conc 33.4 % (30-36); Mean Corpuscular Volume 80.9 fL (80-100); Monocytes Absolute Auto 700 /uL (0-900); Neutrophils Absolute Auto 7300 /uL (1500-7000); Neutrophils Percent Auto 61.1 % (50-75); Platelet Count 381 X10^3/uL (150-400); Red Blood Cell Count 4.81 X10^6/uL (4.0-5.2); Red Cell Distribution Width 13.5 % (11.6-14.8)
[2024-04-28 23:16] LABS: BUN Creatinine Ratio 28.6 (6-22); Blood Urea Nitrogen 16 mg/dL (7-17); Calcium 8.7 mg/dL (8.4-10.2); Carbon Dioxide 24 mmol/L (22-32); Chloride 103 mmol/L (98-107); Estimated Glomerular Filt Rate > 60 mL/min (>60); Glucose 108 mg/dL (70-100); HEMOLYSIS 19 (0-50); Potassium 3.3 mmol/L (3.4-5.1); Sodium 135 mmol/L (137-145)
[2024-04-28 23:30] VITALS: PULSE 83; O2SAT 98
[2024-04-28 23:33] LABS: HCG Quantitative /Beta subunit 2665.3 mIU/mL
--- NOTE | 2024-04-29 | ED.GENADULT ---
HPI - General Adult General Chief complaint: Vaginal Bleeding Stated complaint: early , spotting, sent by pcp Time Seen by Provider: 04/28/24 21:23 Source: patient Mode of arrival: Ambulatory Limitations: no limitations History of Present Illness HPI narrative: 23-year-old female. Has a at what was initially thought of his 9 weeks EGA who comes emergency department today because of vaginal spotting when she wiped. No abdominal pain. No loss of fluid. No fevers. No vomiting. No change in bowel habits. No urinary symptoms. She states that she has been getting frequent blood draws which shows a rising level of her HCG. She has had an ultrasound which did not show an intrauterine . She was instructed to come to the emergency department for further evaluation Related Data Previous Rx's Medication Instructions Recorded valacyclovir 1 gram tablet 1,000 mg PO BID PRN vulvar lesion 03/14/22 7 days #14 tabs vit no.95-ferrous 1 tab PO DAILY #90 tabs 04/21/24 fumarate 28 mg-folic acid 800 mcg tablet ( Multivitamins) Allergies Allergy/AdvReac Type Severity Reaction Status Date / Time No Known Drug Allergies Allergy Verified 04/25/24 12:14 Review of Systems Review of Systems Narrative: See HPI Patient History Medical History Iron deficiency anemia Vulvar lesion Dysuria Pain on voiding Healthy adult Surgical History Status post section Family History (Updated 04/21/24 @ 14:09 by Heidi Vizcaino RN) Grandmother No problems noted. Grandfather No problems noted. Grandmother No problems noted. Grandfather No problems noted. Brother No problems noted. Sister No problems noted. 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 feliciano/moravian: [employer] special feliciano needs: No travel history: recent (Domestic only) seatbelt use: always helmet use: No water heater temp set < 120 deg: Yes working smoke detector in home: Yes fire extinguisher in home: Yes carbon monox detector in home: Yes firearms in home: No do you feel safe at home: Yes Smoking Status: Never smoker second hand exposure: No alcohol intake: never substance use type: does not use and marijuana during the past year weight has: other (gained weight w/ OCPs, lost it again at gym and went down further) well-balanced diet: about half the time daily servings fruits/ve-4 caffeine: Yes (occasional 8-12 oz coffee in AM) eating out: 1-3 times/week Type(s) of exercise: aerobic and weight lifting Smoking Status: Never smoker alcohol intake frequency: other Substance Use Type: does not use Exam Initial Vital Signs Initial Vital Signs: Vital Signs Temperature 98.6 F 04/28/24 20:43 Pulse Rate 66 04/28/24 20:43 Respiratory Rate 16 04/28/24 20:43 Blood Pressure 116/67 04/28/24 20:43 Pulse Oximetry 97 04/28/24 20:43 Oxygen Delivery Method Room Air 04/28/24 20:43 Const General: cooperative, comfortable and No ill appearing Resp Effort & Inspection: normal respiratory effort Cardio Rate: regular rate GI Inspection: non-distended Skin General: no rashes or lesions noted Course Orders Ordered: ED Orders 04/28/24 21:25 US OB <= 14 weeks fetus Stat 04/28/24 22:55 Basic Metabolic Panel Stat Complete Blood Count AUTO DIFF Stat HCG Quantitative /Beta subunit Stat Vital Signs Vital signs: Vital Signs - 8 hr 04/28/24 20:43 04/28/24 22:18 04/28/24 22:19 Temperature 98.6 F Pulse Rate 66 85 Respiratory Rate 16 Blood Pressure 116/67 118/57 L Pulse Oximetry 97 97 Oxygen Delivery Method Room Air 04/28/24 22:31 04/28/24 23:00 04/28/24 23:30 Temperature Pulse Rate 84 83 83 Respiratory Rate Blood Pressure Pulse Oximetry 99 99 98 Oxygen Delivery Method 04/29/24 00:05 04/29/24 00:05 Temperature Pulse Rate 90 Respiratory Rate Blood Pressure 107/59 L Pulse Oximetry 98 Oxygen Delivery Method Medical Decision Making Lab Data Lab results reviewed: Yes I reviewed the patient's lab results. 04/28/24 22:55 04/28/24 22:55 Labs: Lab Results 04/28/24 Range/Units 22:55 WBC 12.0 H (4.5-11.0) X10^3/uL RBC 4.81 (4.0-5.2) X10^6/uL Hgb 13.0 (12.0-16.0) g/dL Hct 38.9 (36-46) % MCV 80.9 (80-100) fL MCH 27.0 (26-34) PG MCHC 33.4 (30-36) % RDW 13.5 (11.6-14.8) % Plt Count 381 (150-400) X10^3/uL Neut % (Auto) 61.1 (50-75) % Lymph % (Auto) 31.8 (25-40) % [place] % (Auto) 6.0 (3-14) % Eos % (Auto) 0.6 L (2-4) % Baso % (Auto) 0.5 (0-2) % Neut # (Auto) 7300 H (6609-9865) /uL Lymph # (Auto) 3800 (7176-0378) /uL [place] # (Auto) 700 (0-900) /uL Eos # (Auto) 100 (0-450) /uL Baso # (Auto) 100 (0-100) /uL Sodium 135 L (137-145) mmol/L Potassium 3.3 L (3.4-5.1) mmol/L Chloride 103 (98-107) mmol/L Carbon Dioxide 24 (22-32) mmol/L BUN 16 (7-17) mg/dL Creatinine 0.56 (0.52-1.04) mg/dL Estimated GFR > 60 (>60) mL/min BUN/Creatinine Ratio 28.6 H (6-22) Glucose 108 H (70-100) mg/dL Calcium 8.7 (8.4-10.2) mg/dL HCG, Quant 2665.3 mIU/mL Urine Dip Bedside Urine Glucose 1000 mg/dl Bedside Urine Bilirubin - Negative Bedside Urine Ketone +/- 5 Urine Specific [place] 1.025 Bedside Urine Occult Blood - Negative Bedside Urine pH 6.0 Bedside Urine Protein - Negative Bedside Urine Urobilinogen - Negative Bedside Urine Nitrite - Negative Bedside Urine Leukocytes - Negative Esterase Point of care testing: Urine Dip Bedside Urine Glucose 1000 mg/dl Bedside Urine Bilirubin - Negative Bedside Urine Ketone +/- 5 Urine Specific [place] 1.025 Bedside Urine Occult Blood - Negative Bedside Urine pH 6.0 Bedside Urine Protein - Negative Bedside Urine Urobilinogen - Negative Bedside Urine Nitrite - Negative Bedside Urine Leukocytes - Negative Esterase Imaging Data US - OB: Radiologist's Impression: PROCEDURE: US OB <= 14 WEEKS FETUS INDICATIONS: Vaginal bleeding early OUTSIDE/PRIOR DATING DATA: Last menstrual period (LMP): 02/24/2024. LMP-based estimated date of delivery (DONNA): 11/30/2024. TECHNIQUE: Real-time scanning was performed of the fetus and maternal pelvic organs, with image documentation. Endovaginal scanning was also performed to better visualize the fetus and maternal ovaries. COMPARISON: [facility], [place], US OB <= 14 WEEKS FETUS, 10/17/2020, 12:35. FINDINGS: Intrauterine gestational sac with yolk sac is present. No pole identified. The gestational sac mean diameter is 0.5 cm. IMPRESSION: Intrauterine gestational sac with yolk sac. of unknown location. No pole. Clinical and imaging follow-up in 14 days or sooner is advised MDM Narrative Medical decision making narrative: Patient was Rh positive. Ultrasound today shows gestational sac with yolk sac but no pole. HCG quant today is almost double from what it was yesterday. Rest of labs unremarkable. I did discuss this with her. Instructed that she contact her OB provider tomorrow to discuss a repeat lab draw the beginning of next week (greater than 48 hours from now). We discussed return precautions and follow-up instructions. She expressed understanding and agreement with plan. Discharge Plan Departure Patient Disposition: Home Clinical Impression: Vaginal bleeding affecting early Instructions: DI for Vaginal Bleeding During Activity Restrictions/Additional Instructions: Continue to take your vitamins. Recommend that tomorrow you contact your OB provider to discuss follow-up most likely the beginning of next week. Return to the emergency department for new symptoms. Prescriptions: No Action valacyclovir 1 gram tablet 1,000 mg PO BID PRN (Reason: vulvar lesion ) 7 Days Qty: 14 1RF PNV cmb#95-ferrous fumarate-FA [ Multivitamins] 28 mg iron- 800 mcg tablet 1 tab PO DAILY Qty: 90 3RF Referrals: Alma Clements MD [Primary Care Provider] - Stand Alone Forms: Patient Portal/API/Survey
[2024-04-29 00:05] VITALS: BP 107/59; PULSE 90; O2SAT 98
== END 2024-04-29 00:08 | disposition home or self-care (01) ==
PROVIDERS: Emergency Provider Emergency Medicine; Family Provider Family Medicine; PCP Family Medicine
DX: O20.9 Hemorrhage in early pregnancy, unspecified (principal); Z3A.09 9 weeks gestation of pregnancy
CPT/HCPCS: 36415; 76801; 80048; 81003; 84702; 85025; 99284

== ENCOUNTER 2024-05-06 06:17 | Emergency (ER) | payer OTHER, MEDICAID, SELFPAY ==
[2024-05-06 06:22] VITALS: BP 115/68
[2024-05-06 06:23] VITALS: PULSE 90; O2SAT 99
[2024-05-06 06:25] VITALS: BP 115/68; PULSE 86; RESP 18; TEMP 36.7; O2SAT 95; BMI 26.6
--- NOTE | 2024-05-06 06:26 | ED.ABDPAIN ---
HPI - Abdominal Pain <Meredith Sandhu MD - Last Filed: 05/06/24 19:50> General Chief Complaint: Abdominal Pain Stated Complaint: abd pain Time Seen by Provider: 05/06/24 06:18 History of Present Illness HPI narrative: 23-year-old at approximately 6 wks gestational age presents with 1 day of suprapubic discomfort. Also reporting that when she tries to urinate she was only able to produce a few drops. Denies vaginal bleeding or vaginal discharge. Threw up 2-3 times earlier this morning prior to ER arrival. Patient was also had an associated runny nose and nonproductive cough. Young child at home sick with similar symptoms. Reported feeling feverish last night, no measured temperature at home. No prevous symptoms. Related Data Previous Rx's Medication Instructions Recorded valacyclovir 1 gram tablet 1,000 mg PO BID PRN vulvar lesion 03/14/22 7 days #14 tabs vit no.95-ferrous 1 tab PO DAILY #90 tabs 04/21/24 fumarate 28 mg-folic acid 800 mcg tablet ( Multivitamins) nitrofurantoin 100 mg PO Q12H 5 days #10 caps 05/06/24 monohydrate/macrocrystals 100 mg capsule (Macrobid) ondansetron 4 mg disintegrating 4 mg PO Q6H PRN nausea and 05/06/24 tablet vomiting #20 tabs Allergies Allergy/AdvReac Type Severity Reaction Status Date / Time No Known Drug Allergies Allergy Verified 04/25/24 12:14 Patient History <Meredith Sandhu MD - Last Filed: 05/06/24 19:50> Medical History Iron deficiency anemia Vulvar lesion Dysuria Pain on voiding Healthy adult Surgical History Status post section Family History Grandmother No problems noted. Grandfather No problems noted. Grandmother No problems noted. Grandfather No problems noted. Brother No problems noted. Sister No problems noted. 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: [employer] special feliciano needs: No travel history: recent (Domestic only) seatbelt use: always helmet use: No water heater temp set < 120 deg: Yes working smoke detector in home: Yes fire extinguisher in home: Yes carbon monox detector in home: Yes firearms in home: No do you feel safe at home: Yes Smoking Status: Never smoker second hand exposure: No alcohol intake: never substance use type: does not use and marijuana during the past year weight has: other (gained weight w/ OCPs, lost it again at gym and went down further) well-balanced diet: about half the time daily servings fruits/ve-4 caffeine: Yes (occasional 8-12 oz coffee in AM) eating out: 1-3 times/week Type(s) of exercise: aerobic and weight lifting Smoking Status: Never smoker alcohol intake frequency: other Substance Use Type: does not use Exam <Meredith Sandhu MD - Last Filed: 05/06/24 19:50> Initial Vital Signs Initial Vital Signs: Vital Signs Blood Pressure 115/68 05/06/24 06:22 Const: Awake, alert, no acute distress, nontoxic appearing Cardiac: regular rate, regular rhythm RESP: unlabored, speaking in complete sentences without dyspnea GI: Soft, nondistended, minimal suprapubic tenderness to deep palpation without rebound or guarding Skin: Warm, Dry, intact, no rashes Neuro: AO x3, CN II-XII grossly intact, moves all extremities <Osvaldo Pizarro DO - Last Filed: 05/06/24 07:40> Initial Vital Signs Initial Vital Signs: Vital Signs Blood Pressure 115/68 05/06/24 06:22 Course <Meredith Sandhu MD - Last Filed: 05/06/24 19:50> Orders Ordered: Discontinued Medications Acetaminophen (Acetaminophen 325 Mg Tablet) 975 mg PO NOW ONE Stop: 05/06/24 06:26 Last Admin: 05/06/24 06:42 Dose: 975 mg Documented By: KW Nitrofurantoin Macrocrystals (Nitrofurantoin Er 100 Mg Capsule) 100 mg PO NOW ONE Stop: 05/06/24 07:38 Last Admin: 05/06/24 08:00 Dose: 100 mg Documented By: RICHIE Ondansetron HCl (Ondansetron 4 Mg Odt) 4 mg SL NOW ONE Stop: 05/06/24 06:26 Last Admin: 05/06/24 06:42 Dose: 4 mg Documented By: SALENA Vital Signs Vital signs: Vital Signs - 8 hr 05/06/24 06:25 Temperature 98.0 F Pulse Rate 86 Respiratory Rate 18 Blood Pressure 115/68 Pulse Oximetry 95 Oxygen Delivery Method Room Air <Osvaldo Pizarro DO - Last Filed: 05/06/24 07:40> Orders Ordered: Discontinued Medications Acetaminophen (Acetaminophen 325 Mg Tablet) 975 mg PO NOW ONE Stop: 05/06/24 06:26 Last Admin: 05/06/24 06:42 Dose: 975 mg Documented By: SALENA Nitrofurantoin Macrocrystals (Nitrofurantoin Er 100 Mg Capsule) 100 mg PO NOW ONE Stop: 05/06/24 07:38 Last Admin: 05/06/24 08:00 Dose: 100 mg Documented By: RICHIE Ondansetron HCl (Ondansetron 4 Mg Odt) 4 mg SL NOW ONE Stop: 05/06/24 06:26 Last Admin: 05/06/24 06:42 Dose: 4 mg Documented By: SALENA Vital Signs Vital signs: Vital Signs - 8 hr 05/06/24 06:25 Temperature 98.0 F Pulse Rate 86 Respiratory Rate 18 Blood Pressure 115/68 Pulse Oximetry 95 Oxygen Delivery Method Room Air MDM - Abdominal Pain <Meredith Sandhu MD - Last Filed: 05/06/24 19:50> Differential Diagnosis Differential diagnosis: Likely abdominal pain and other (UTI, gastroenteritis) Lab Data Labs: Lab Results 05/06/24 05/06/24 05/06/24 Range/Units 06:33 06:44 07:03 HCG, Quant 92105 mIU/mL Urine Color Yellow Urine Appearance Sl cloudy Urine pH 6.0 (4.5-8.0) Ur Specific [place] >=1.030 H (1.000-1.035) Urine Protein 1+ H (Negative) Urine Glucose (UA) Negative (Negative) g/dL Urine Ketones 3+ H (NEGATIVE) Urine Occult Blood Negative (Negative) Urine Nitrate Positive H (Negative) Urine Bilirubin 1+ H (NEGATIVE) Ur Bilirubin Confirm Negative (Negative) Urine Urobilinogen 1.0 (0.2) E.U./dL Ur Leukocyte Esterase Negative (NEGATIVE) Urine RBC None seen (0-5/HPF) Urine WBC None seen (0-5/HPF) Ur Squamous Epith Cells 5-10 /hpf H (0-5/HPF) Urine Bacteria Many (>30) H (None) Ur Culture Indicated? Specimen cultured Vol Urine Centrifuged 10ml (spun) SARS-CoV-2 (PCR) Negative (Negative) Influenza A (RT-PCR) Flu a negative (NEGATIVE) Influenza B (RT-PCR) Flu b negative (NEGATIVE) RSV (PCR) Negative (Negative) MDM Narrative Medical decision making narrative: Well-appearing patient with less than 1 day of symptoms. Abdomen soft, no peritoneal signs. She was 6 weeks with confirmed IUP, O positive blood type. Pending HCG, swabs, urine results. Patient care signed to Dr. Pizarro at 0700 Dr pizarro: Received turned over. He the patient's history and physical exam. Her COVID flu and RSV tests are negative. Her quantitative levels are raising appropriately. She does have a nitrite positive urine with other signs of UTI. She also has symptoms associated with a UTI. Will treat with antibiotics. First dose given here in the ER and a prescription was sent to the pharmacy of her choice. Culture pending at the time of discharge. Patient was given return precautions. <Osvaldo Pizarro, DO - Last Filed: 05/06/24 07:40> Lab Data Labs: Lab Results 05/06/24 05/06/24 05/06/24 Range/Units 06:33 06:44 07:03 HCG, Quant 93315 mIU/mL Urine Color Yellow Urine Appearance Sl cloudy Urine pH 6.0 (4.5-8.0) Ur Specific [place] >=1.030 H (1.000-1.035) Urine Protein 1+ H (Negative) Urine Glucose (UA) Negative (Negative) g/dL Urine Ketones 3+ H (NEGATIVE) Urine Occult Blood Negative (Negative) Urine Nitrate Positive H (Negative) Urine Bilirubin 1+ H (NEGATIVE) Ur Bilirubin Confirm Negative (Negative) Urine Urobilinogen 1.0 (0.2) E.U./dL Ur Leukocyte Esterase Negative (NEGATIVE) Urine RBC None seen (0-5/HPF) Urine WBC None seen (0-5/HPF) Ur Squamous Epith Cells 5-10 /hpf H (0-5/HPF) Urine Bacteria Many (>30) H (None) Ur Culture Indicated? Specimen cultured Vol Urine Centrifuged 10ml (spun) SARS-CoV-2 (PCR) Negative (Negative) Influenza A (RT-PCR) Flu a negative (NEGATIVE) Influenza B (RT-PCR) Flu b negative (NEGATIVE) RSV (PCR) Negative (Negative) MDM Narrative Medical decision making narrative: Well-appearing patient with less than 1 day of symptoms. Abdomen soft, no peritoneal signs. She was 6 weeks with confirmed IUP, O positive blood type. Dr pizarro: Received turned over. He the patient's history and physical exam. Her COVID flu and RSV tests are negative. Her quantitative levels are raising appropriately. She does have a nitrite positive urine with other signs of UTI. She also has symptoms associated with a UTI. Will treat with antibiotics. First dose given here in the ER and a prescription was sent to the pharmacy of her choice. Culture pending at the time of discharge. Patient was given return precautions. Discharge Plan Departure Patient Disposition: Home Clinical Impression: Urinary tract infection, Instructions: DI for Urinary Tract Infection (UTI) Activity Restrictions/Additional Instructions: Continue to take all of your medications as directed. Keep all of your scheduled OB appointments. Return to the emergency department for new symptoms. Prescriptions: New nitrofurantoin monohyd/m-cryst [Macrobid] 100 mg capsule 100 mg PO Q12H 5 Days Qty: 10 0RF Rx Instructions: must administer with a meal/food No Action valacyclovir 1 gram tablet 1,000 mg PO BID PRN (Reason: vulvar lesion ) 7 Days Qty: 14 1RF ondansetron 4 mg tablet,disintegrating 4 mg PO Q6H PRN (Reason: nausea and vomiting) Qty: 20 0RF PNV cmb#95-ferrous fumarate-FA [ Multivitamins] 28 mg iron- 800 mcg tablet 1 tab PO DAILY Qty: 90 3RF Referrals: Alma Clements MD [Primary Care Provider] - Stand Alone Forms: Patient Portal/API/Survey
[2024-05-06 06:30] VITALS: PULSE 82; O2SAT 98
[2024-05-06] MEDS: ONDANSETRON 4 MG ODT SL (06:42)
[2024-05-06] MEDS: ACETAMINOPHEN 325 MG TABLET 975 MG PO (06:42)
[2024-05-06 07:09] LABS: Appearance Urine UA SL CLOUDY; Bilirubin Urine UA 1+ (NEGATIVE); Color Urine UA YELLOW; Glucose Urine UA NEGATIVE (Negative); Ketones Urine UA 3+ (NEGATIVE); Leukocyte Esterase Urine UA NEGATIVE (NEGATIVE); Nitrite Urine UA POSITIVE (Negative); Occult Blood Urine UA NEGATIVE (Negative); Protein Urine UA 1+ (Negative); Specific Gravity Urine UA >=1.030 (1.000-1.035)
[2024-05-06 07:14] LABS: Ictotest Urine Negative (Negative); Urine Volume 10mL (spun)
[2024-05-06 07:15] LABS: Bacteria Urine Many (>30); Culture Indicated Urine Specimen Cultured; RBC Urine None Seen (0-5/HPF); Squamous Epithelial Cell Urine 5-10 /HPF (0-5/HPF); WBC Urine None Seen (0-5/HPF)
[2024-05-06 07:18] LABS: HCG Quantitative /Beta subunit 17385 mIU/mL
[2024-05-06 07:33] LABS: Influenza A - CEPHEID Flu A NEGATIVE (NEGATIVE); Influenza B - CEPHEID Flu B NEGATIVE (NEGATIVE); Respiratory Syncytial Virus Negative (Negative)
[2024-05-06 07:34] LABS: COVID-19 CEPHEID 4-PLEX PCR Negative (Negative)
[2024-05-06 07:43] VITALS: BP 98/51; PULSE 77; O2SAT 95
[2024-05-06] MEDS: NITROFURANTOIN ER 100 MG CAPSULE PO (08:00)
== END 2024-05-06 08:05 | disposition home or self-care (01) ==
PROVIDERS: Emergency Medicine; Emergency Provider Emergency Medicine; Family Provider Family Medicine; PCP Family Medicine
DX: O23.41 Unspecified infection of urinary tract in pregnancy, first trimester (principal); N39.0 Urinary tract infection, site not specified; Z3A.01 Less than 8 weeks gestation of pregnancy; Z11.52 Encounter for screening for COVID-19
CPT/HCPCS: 0241U; 81001; 84702; 87086; 99283

== ENCOUNTER → 2024-06-01 10:07 | Outpatient (CLI) | payer OTHER, MEDICAID, SELFPAY ==
[2024-06-01 11:55] LABS: Urine N gonorrhoeae NOT DETECTED
[2024-06-01 11:58] LABS: Urine Chlamydia DETECTED
== END ==
PROVIDERS: Family Provider Family Medicine; PCP Family Medicine; Visit Provider Physician Assistant Surgical
DX: N94.9 Unspecified condition associated with female genital organs and menstrual cycle (principal); R30.0 Dysuria
CPT/HCPCS: 87086; 87210; 87491; 87591

== ENCOUNTER → 2024-06-01 10:36 | Outpatient (CLI) | payer OTHER, MEDICAID, SELFPAY ==
[2024-06-01 23:34] LABS: HIV 1 & 2 Ab/Ag 4th Gen Combo NEGATIVE (NEGATIVE); Hep C Virus Ab w/Reflex Quant NEGATIVE s/c (NEGATIVE); Hepatitis B Surface Antigen NEGATIVE s/c (NEGATIVE)
[2024-06-02 08:09] LABS: RPR Screen Non Reactive (Non Reactive)
== END ==
PROVIDERS: Family Provider Family Medicine; PCP Family Medicine; Referring Provider Physician Assistant Surgical; Visit Provider Physician Assistant Surgical
DX: Z20.2 Contact with and (suspected) exposure to infections with a predominantly sexual mode of transmission (principal)
CPT/HCPCS: 36415; 86592; 86695; 86696; 86803; 87086; 87210; 87340; 87389; 87491; 87591

== ENCOUNTER 2024-06-01 11:11 | Emergency (ER) | payer OTHER, MEDICAID, SELFPAY ==
[2024-06-01 11:15] VITALS: BP 104/58; PULSE 87; RESP 15; TEMP 36.1; O2SAT 96; BMI 26.4
--- NOTE | 2024-06-01 12:20 | ED_ITS ---
HPI - Abdominal Pain <Madiha Chris PA-C - Last Filed: 06/01/24 15:04> General Chief Complaint: Abdominal Pain Stated Complaint: Lower Stomach pain, 9 weeks Time Seen by Provider: 06/01/24 12:19 Mode of arrival: Ambulatory History of Present Illness HPI narrative: Ms. Marvin Small is a pleasant currently 9 week female with a past medical history preeclampsia and 3 years ago who presents to the emergency department for lower abdominal pain in x 2 days. Patient also reports yesterday her was seen in the ER and diagnosed with chlamydia. States that she has having no abnormal vaginal discharge, bleeding, dysuria but she has been having constant dull pain across her lower abdomen for the last 2 days. Patient states she did have an ultrasound with her OBGYN around 6 weeks and she had a normal intrauterine at that time. She denies fevers, chills, nausea, vomiting, other concerns. OBGYN: Dr. Roy. LMP reported 03/22/24 Related Data Previous Rx's Medication Instructions Recorded valacyclovir 1 gram tablet 1,000 mg PO BID PRN vulvar lesion 03/14/22 7 days #14 tabs vit no.95-ferrous 1 tab PO DAILY #90 tabs 04/21/24 fumarate 28 mg-folic acid 800 mcg tablet ( Multivitamins) ondansetron 4 mg disintegrating 4 mg PO Q6H PRN nausea and 05/06/24 tablet vomiting #20 tabs acetaminophen 500 mg tablet 500 mg PO QID PRN pain #90 tabs 05/10/24 amoxicillin 875 mg-potassium 1 tab PO BID #10 tabs 05/10/24 clavulanate 125 mg tablet azithromycin 500 mg tablet 1,000 mg (2 x 500 mg) PO ONCE #2 06/01/24 tabs Allergies Allergy/AdvReac Type Severity Reaction Status Date / Time No Known Drug Allergies Allergy Verified 06/01/24 11:15 Review of Systems <Madiha Chris PA-C - Last Filed: 06/01/24 15:04> Review of Systems ROS Unobtainable: All systems reviewed & are unremarkable except as noted in HPI and below Patient History <Madiha Chris PA-C - Last Filed: 06/01/24 15:04> Medical History Iron deficiency anemia Vulvar lesion Dysuria Pain on voiding Healthy adult Surgical History Status post section Family History Grandmother No problems noted. Grandfather No problems noted. Grandmother No problems noted. Grandfather No problems noted. Brother No problems noted. Sister No problems noted. 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: [employer] special feliciano needs: No travel history: recent (Domestic only) seatbelt use: always helmet use: No water heater temp set < 120 deg: Yes working smoke detector in home: Yes fire extinguisher in home: Yes carbon monox detector in home: Yes firearms in home: No do you feel safe at home: Yes Smoking Status: Never smoker second hand exposure: No alcohol intake: never substance use type: does not use and marijuana during the past year weight has: other (gained weight w/ OCPs, lost it again at gym and went down further) well-balanced diet: about half the time daily servings fruits/ve-4 caffeine: Yes (occasional 8-12 oz coffee in AM) eating out: 1-3 times/week Type(s) of exercise: aerobic and weight lifting Smoking Status: Never smoker alcohol intake frequency: other Exam <Madiha Chris PA-C - Last Filed: 06/01/24 15:04> Narrative Exam Narrative: GENERAL: 23 year old patient appears stated age. Well-developed patient, in no acute distress. HEAD: Atraumatic. Normocephalic. EYES: Extraocular motions intact. No scleral icterus. No injection or drainage. ENT: Nose without bleeding, purulent drainage. Throat without erythema, tonsillar hypertrophy or exudate. Airway patent. NECK: Trachea midline. Cervical ROM intact. CARDIOVASCULAR: Regular rate and rhythm. RESPIRATORY: ?Nonlabored respirations. ?Speaking in clear, full sentences. ?Clear to auscultation. Breath sounds equal bilaterally. No wheezes, rales, or rhonchi. ? GASTROINTESTINAL: Abdomen soft, non-tender, nondistended. Subjective discomfort in suprapubic region. EXTREMITIES: No edema or joint tenderness. BACK: Nontender without deformity or crepitance. No flank tenderness. NEURO: AOx3. ?Clear speech. ?Moves all 4 extremities appropriately. SKIN: No rash or erythema of visible areas Initial Vital Signs Initial Vital Signs: Vital Signs Temperature 97.0 F L 06/01/24 11:15 Pulse Rate 87 06/01/24 11:15 Respiratory Rate 15 06/01/24 11:15 Blood Pressure 104/58 L 06/01/24 11:15 Pulse Oximetry 96 06/01/24 11:15 Oxygen Delivery Method Room Air 06/01/24 11:15 <Osvaldo Pizarro DO - Last Filed: 06/01/24 15:07> Initial Vital Signs Initial Vital Signs: Vital Signs Temperature 97.0 F L 06/01/24 11:15 Pulse Rate 87 06/01/24 11:15 Respiratory Rate 15 06/01/24 11:15 Blood Pressure 104/58 L 06/01/24 11:15 Pulse Oximetry 96 06/01/24 11:15 Oxygen Delivery Method Room Air 06/01/24 11:15 Course <Madiha Chris PA-C - Last Filed: 06/01/24 15:04> Orders Ordered: ED Orders 06/01/24 11:19 Chlamydia Gonorrhea PCR -URINE Stat 06/01/24 12:30 US OB <= 14 weeks fetus Stat 06/01/24 12:46 CBC Auto Diff [Complete Blood Count AUTO DIFF] Stat CMP [Comprehensive Metabolic Panel] Stat HCG Quantitative /Beta subunit Stat Discontinued Medications Acetaminophen (Acetaminophen 325 Mg Tablet) 650 mg PO NOW ONE Stop: 06/01/24 12:36 Last Admin: 06/01/24 12:52 Dose: 650 mg Documented By: BRENNON Azithromycin (Azithromycin 250 Mg Tablet) 1,000 mg PO NOW ONE Stop: 06/01/24 14:56 Last Admin: 06/01/24 15:01 Dose: 1,000 mg Documented By: BRENNON Vital Signs Vital signs: Vital Signs - 8 hr 06/01/24 11:15 Temperature 97.0 F L Pulse Rate 87 Respiratory Rate 15 Blood Pressure 104/58 L Pulse Oximetry 96 Oxygen Delivery Method Room Air <Osvaldo Pizarro DO - Last Filed: 06/01/24 15:07> Orders Ordered: ED Orders 06/01/24 11:19 Chlamydia Gonorrhea PCR -URINE Stat 06/01/24 12:30 US OB <= 14 weeks fetus Stat 06/01/24 12:46 CBC Auto Diff [Complete Blood Count AUTO DIFF] Stat CMP [Comprehensive Metabolic Panel] Stat HCG Quantitative /Beta subunit Stat Discontinued Medications Acetaminophen (Acetaminophen 325 Mg Tablet) 650 mg PO NOW ONE Stop: 06/01/24 12:36 Last Admin: 06/01/24 12:52 Dose: 650 mg Documented By: BRENNON Azithromycin (Azithromycin 250 Mg Tablet) 1,000 mg PO NOW ONE Stop: 06/01/24 14:56 Last Admin: 06/01/24 15:01 Dose: 1,000 mg Documented By: BRENNON Vital Signs Vital signs: Vital Signs - 8 hr 06/01/24 11:15 Temperature 97.0 F L Pulse Rate 87 Respiratory Rate 15 Blood Pressure 104/58 L Pulse Oximetry 96 Oxygen Delivery Method Room Air MDM - Abdominal Pain <Madiha Chris PA-C - Last Filed: 06/01/24 15:04> Lab Data 06/01/24 12:46 06/01/24 12:46 Labs: Lab Results 06/01/24 06/01/24 Range/Units 11:19 12:46 WBC 10.8 (4.5-11.0) X10^3/uL RBC 4.90 (4.0-5.2) X10^6/uL Hgb 13.4 (12.0-16.0) g/dL Hct 39.9 (36-46) % MCV 81.4 (80-100) fL MCH 27.4 (26-34) PG MCHC 33.6 (30-36) % RDW 14.0 (11.6-14.8) % Plt Count 364 (150-400) X10^3/uL Neut % (Auto) 74.2 (50-75) % Lymph % (Auto) 20.8 L (25-40) % [place] % (Auto) 4.3 (3-14) % Eos % (Auto) 0.4 L (2-4) % Baso % (Auto) 0.3 (0-2) % Neut # (Auto) 8000 H (5479-3358) /uL Lymph # (Auto) 2300 (1900-9837) /uL [place] # (Auto) 500 (0-900) /uL Eos # (Auto) 0 (0-450) /uL Baso # (Auto) 0 (0-100) /uL Sodium 134 L (137-145) mmol/L Potassium 3.5 (3.4-5.1) mmol/L Chloride 105 (98-107) mmol/L Carbon Dioxide 22 (22-32) mmol/L BUN 15 (7-17) mg/dL Creatinine 0.48 L (0.52-1.04) mg/dL Estimated GFR > 60 (>60) mL/min BUN/Creatinine Ratio 31.3 H (6-22) Glucose 88 (70-100) mg/dL Calcium 8.8 (8.4-10.2) mg/dL Total Bilirubin 0.3 (0.2-1.3) mg/dL AST 27 (14-36) IU/L ALT 22 (<35) IU/L Alkaline Phosphatase 75 (38-126) U/L Total Protein 6.7 (6.3-8.2) g/dL Albumin 3.9 (3.5-5.0) g/dL Globulin 2.8 (1.7-4.1) g/dL Albumin/Globulin Ratio 1.4 (1.0-2.8) HCG, Quant 24241 mIU/mL Ur Chlamydia DNA (PCR) Detected H N gonorrhoeae DNA (PCR) Not detected Point of care testing: Urine Dip Bedside Urine Glucose 1000 mg/dl Bedside Urine Bilirubin - Negative Bedside Urine Ketone - Negative Urine Specific [place] 1.025 Bedside Urine Occult Blood - Negative Bedside Urine pH 5.5 Bedside Urine Protein - Negative Bedside Urine Urobilinogen - Negative Bedside Urine Nitrite - Negative Bedside Urine Leukocytes - Negative Esterase MDM Narrative Medical decision making narrative: currently 9 week female with a past medical history preeclampsia and 3 years ago who presents to the emergency department for lower abdominal pain in x 2 days. Differential diagnosis includes but is not limited to ectopic , pelvic inflammatory disease, UTI, uterine fibroid, 1st trimester , round ligament stretching, chlamydia, etc. On exam the patient is in no acute distress, nontoxic appearing, vital signs appropriate. Patient has subjective suprapubic pain for the last 2 days and . No abnormal vaginal discharge or bleeding. No pain during intercourse. Her tested positive for chlamydia. We will proceed with CBC, CMP, hCG quant, ultrasound given her pain. We will treat with Tylenol. UA and urine gonorrhea/chlamydia obtained in triage, patient will likely need to be empirically treated for chlamydia with azithromycin 1 g single dose. Patient positive for chlamydia, negative for gonorrhea. We will treat with 1 g of azithromycin in the ED. Recommended patient have test of cure in 3-4 weeks later. Her has already been treated. Ultrasound reveals no acute abnormalities, patient does have a single live intrauterine with gestational age 9 weeks 4 days. Labs overall within normal limits, WBC count normal at 10.8, hemoglobin 13.4, hematocrit 39.9. BUN 15 creatinine 0.48. LFTs within normal limits. HCG quant is 89,284 which is appropriate for gestational age. UA without signs of infection. Advised patient follow up promptly with her OBGYN. Discussed strict ER return precautions. Patient verbalized understanding of all information and is stable for discharge home. <Osvaldo Pizarro, DO - Last Filed: 06/01/24 15:07> Lab Data Labs: Lab Results 06/01/24 06/01/24 Range/Units 11:19 12:46 WBC 10.8 (4.5-11.0) X10^3/uL RBC 4.90 (4.0-5.2) X10^6/uL Hgb 13.4 (12.0-16.0) g/dL Hct 39.9 (36-46) % MCV 81.4 (80-100) fL MCH 27.4 (26-34) PG MCHC 33.6 (30-36) % RDW 14.0 (11.6-14.8) % Plt Count 364 (150-400) X10^3/uL Neut % (Auto) 74.2 (50-75) % Lymph % (Auto) 20.8 L (25-40) % [place] % (Auto) 4.3 (3-14) % Eos % (Auto) 0.4 L (2-4) % Baso % (Auto) 0.3 (0-2) % Neut # (Auto) 8000 H (3835-5762) /uL Lymph # (Auto) 2300 (3666-5902) /uL [place] # (Auto) 500 (0-900) /uL Eos # (Auto) 0 (0-450) /uL Baso # (Auto) 0 (0-100) /uL Sodium 134 L (137-145) mmol/L Potassium 3.5 (3.4-5.1) mmol/L Chloride 105 (98-107) mmol/L Carbon Dioxide 22 (22-32) mmol/L BUN 15 (7-17) mg/dL Creatinine 0.48 L (0.52-1.04) mg/dL Estimated GFR > 60 (>60) mL/min BUN/Creatinine Ratio 31.3 H (6-22) Glucose 88 (70-100) mg/dL Calcium 8.8 (8.4-10.2) mg/dL Total Bilirubin 0.3 (0.2-1.3) mg/dL AST 27 (14-36) IU/L ALT 22 (<35) IU/L Alkaline Phosphatase 75 (38-126) U/L Total Protein 6.7 (6.3-8.2) g/dL Albumin 3.9 (3.5-5.0) g/dL Globulin 2.8 (1.7-4.1) g/dL Albumin/Globulin Ratio 1.4 (1.0-2.8) HCG, Quant 64394 mIU/mL Ur Chlamydia DNA (PCR) Detected H N gonorrhoeae DNA (PCR) Not detected Point of care testing: Urine Dip Bedside Urine Glucose 1000 mg/dl Bedside Urine Bilirubin - Negative Bedside Urine Ketone - Negative Urine Specific [place] 1.025 Bedside Urine Occult Blood - Negative Bedside Urine pH 5.5 Bedside Urine Protein - Negative Bedside Urine Urobilinogen - Negative Bedside Urine Nitrite - Negative Bedside Urine Leukocytes - Negative Esterase Discharge Plan Departure Patient Disposition: Home Clinical Impression: Chlamydia infection, current Instructions: DI for Chlamydia Activity Restrictions/Additional Instructions: Today you were evaluated for abdominal pain and . Your urine test was positive for chlamydia which is a sexually transmitted infection. You were negative for gonorrhea. Your lab work was overall reassuring and your ultrasound shows a single live intrauterine measuring 9 weeks and 4 days. To treat the chlamydia infection, we have given you a 1 time dose of azithromycin. Because you are , we recommend a repeat test in 3-4 weeks. Avoid sexual intercourse for the next 7-10 days and have any sexual partners treated as well. Please follow up with your OBGYN as soon as possible for further evaluation. Return to the ER if you develop new or worsening pelvic pain, abnormal vaginal discharge, vaginal bleeding, fever, any other concerns. Please follow up with your primary care doctor within the next 2-3 days for ER follow-up. (If you do not have a PCP you can call [phone]. ?to schedule an appointment with an [facility] Primary Care Provider) IF YOU DEVELOP ANY NEW OR WORSENING SYMPTOMS, RETURN TO THE ER! Please read the attached instructions, they highlight more specific treatments and interventions for you at home. Thank you for letting me participate in your care, Madiha Chris PA-C Prescriptions: No Action amoxicillin-pot clavulanate 875-125 mg tablet 1 tab PO BID Qty: 10 0RF acetaminophen 500 mg tablet 500 mg PO QID PRN (Reason: pain) Qty: 90 2RF azithromycin 500 mg tablet 1,000 mg PO ONCE Qty: 2 0RF valacyclovir 1 gram tablet 1,000 mg PO BID PRN (Reason: vulvar lesion ) 7 Days Qty: 14 1RF ondansetron 4 mg tablet,disintegrating 4 mg PO Q6H PRN (Reason: nausea and vomiting) Qty: 20 0RF PNV cmb#95-ferrous fumarate-FA [ Multivitamins] 28 mg iron- 800 mcg tablet 1 tab PO DAILY Qty: 90 3RF Referrals: Alma Clements MD [Primary Care Provider] - Stand Alone Forms: Patient Portal/API/Survey ED Sign-out <Osvaldo Pizarro, DO - Last Filed: 06/01/24 15:07> [facility] Dr Pizarro Co-Sign Statement: I was available for consultation during this patient's emergency department visit. This chart is signed by myself for administrative purposes only. I did not have direct contact with this patient during this visit. They were seen independently by the APC.
--- NOTE | 2024-06-01 12:30 | DI.US.S_ITS ---
PROCEDURE: US OB <= 14 WEEKS FETUS INDICATIONS: 9 weeks preg suprapubic pain OUTSIDE/PRIOR DATING DATA: Last menstrual period (LMP): 03/15/2024 LMP-based estimated date of delivery (DONNA): 11/30/2024 First dating scan (date and location): 04/28/2024 Estimated date of delivery (DONNA) from first dating scan: 12/27/2024. The calculations are made using the clinical DONNA of 12/31/2024. TECHNIQUE: Real-time scanning was performed of the fetus and maternal pelvic organs, with image documentation. COMPARISON: [facility], , OB <= 14 WEEKS FETUS, 04/28/2024, 21:57. FINDINGS: Embryo: Single live intrauterine is identified with crown-rump length measuring 2.8 cm corresponding to 9 weeks 4 days. Heart rate: 157 beats per Maternal organs: Ovaries are unremarkable. IMPRESSION: Single live intrauterine with gestational age today of 9 weeks 4 days. We strive to produce accurate, complete, and clear reports of imaging services. To assist us in improving patient care, this report was composed using standard report templates and voice recognition software. Therefore, it may contain abnormal punctuation, insertions and/or omissions. Occasional wrong-word or sound-alike substitutions may occur. Though we review the report and make efforts to correct it, we do recommend that the report be read carefully in proper context to recognize any text inaccuracies. Dictated by: Eleanor Lawson M.D. on 06/01/2024 at 14:30 Approved by: Eleanor Lawson M.D. on 06/01/2024 at 14:32
[2024-06-01] MEDS: ACETAMINOPHEN 325 MG TABLET 650 MG PO (12:52)
[2024-06-01 12:54] LABS: Add Manual Diff / Slide Review NO; Basophils Absolute Auto 0 /uL (0-100); Basophils Percent Auto 0.3 % (0-2); Eosinophils Absolute Auto 0 /uL (0-450); Eosinophils Percent Auto 0.4 % (2-4); Hematocrit 39.9 % (36-46); Hemoglobin 13.4 g/dL (12.0-16.0); Lymphocytes Absolute Auto 2300 /uL (1100-4500); Lymphocytes Percent Auto 20.8 % (25-40); Mean Corpuscular HGB Conc 33.6 % (30-36); Mean Corpuscular Hemoglobin 27.4 PG (26-34); Mean Corpuscular Volume 81.4 fL (80-100); Monocytes Absolute Auto 500 /uL (0-900); Monocytes Percent Auto 4.3 % (3-14); Neutrophils Absolute Auto 8000 /uL (1500-7000); Neutrophils Percent Auto 74.2 % (50-75); Platelet Count 364 X10^3/uL (150-400); White Blood Cell Count 10.8 X10^3/uL (4.5-11.0)
[2024-06-01 12:57] LABS: Urine Chlamydia DETECTED; Urine N gonorrhoeae NOT DETECTED
[2024-06-01 13:12] LABS: Alanine Aminotransferase 22 IU/L (<35); Albumin 3.9 g/dL (3.5-5.0); Albumin Globulin Ratio 1.4 (1.0-2.8); Alkaline Phosphatase 75 U/L (38-126); Aspartate Aminotransferase 27 IU/L (14-36); BUN Creatinine Ratio 31.3 (6-22); Bilirubin Total 0.3 mg/dL (0.2-1.3); Blood Urea Nitrogen 15 mg/dL (7-17); Calcium 8.8 mg/dL (8.4-10.2); Carbon Dioxide 22 mmol/L (22-32); Chloride 105 mmol/L (98-107); Estimated Glomerular Filt Rate > 60 mL/min (>60); Globulin 2.8 g/dL (1.7-4.1); Glucose 88 mg/dL (70-100); HEMOLYSIS < 15 (0-50); Potassium 3.5 mmol/L (3.4-5.1); Sodium 134 mmol/L (137-145); Total Protein 6.7 g/dL (6.3-8.2)
[2024-06-01 13:53] LABS: HCG Quantitative /Beta subunit 89284 mIU/mL
[2024-06-01] MEDS: AZITHROMYCIN 250 MG TABLET 1000 MG PO (15:01)
[2024-06-01 15:07] VITALS: BP 109/58; PULSE 83; RESP 16; O2SAT 99
== END 2024-06-01 15:07 | disposition home or self-care (01) ==
PROVIDERS: Emergency Medicine; Emergency Provider Physician Assistant; Family Provider Family Medicine; PCP Family Medicine
DX: O98.311 Other infections with a predominantly sexual mode of transmission complicating pregnancy, first trimester (principal); A56.8 Sexually transmitted chlamydial infection of other sites; Z3A.09 9 weeks gestation of pregnancy; N94.9 Unspecified condition associated with female genital organs and menstrual cycle; R30.0 Dysuria; Z20.2 Contact with and (suspected) exposure to infections with a predominantly sexual mode of transmission
CPT/HCPCS: 36415; 76801; 76817; 80053; 81002; 81003; 84702; 85025; 86592; 86695; 86696; 86803; 87086; 87210; 87340; 87389; 87491; 87591; 99283; 99284

== ENCOUNTER → 2024-06-13 19:36 | Outpatient (ROUT) | payer OTHER, SELFPAY ==
[2024-06-13 21:15] LABS: Urine N gonorrhoeae NOT DETECTED
[2024-06-13 21:16] LABS: Urine Chlamydia NOT DETECTED
== END ==
PROVIDERS: Family Provider Family Medicine; PCP Family Medicine; Visit Provider Family Medicine
DX: O98.819 Other maternal infectious and parasitic diseases complicating pregnancy, unspecified trimester (principal); A74.9 Chlamydial infection, unspecified
CPT/HCPCS: 87491; 87591

== ENCOUNTER → 2024-08-08 14:12 | Outpatient (CLI) | payer OTHER, SELFPAY ==
--- NOTE | 2024-08-08 14:13 | DI.US.S_ITS ---
PROCEDURE: OB >= 14 WEEKS FETUS INDICATIONS: anatomy OUTSIDE/PRIOR DATING DATA: Last menstrual period (LMP): 03/15/2024 LMP-based estimated date of delivery (DONNA): 11/30/2024. First dating scan (date and location): 04/28/2024. Estimated date of delivery (DONNA) from first dating scan: 12/27/2024 Working DONNA is 12/31/2024. TECHNIQUE: Real-time scanning was performed of the fetus, with image documentation and biometric measurements. Endovaginal scanning: No COMPARISON: [facility], OB <= 14 WEEKS FETUS, 06/01/2024, 12:49. [facility], OB >= 14 WEEKS FETUS, 03/20/2021, 10:39. FINDINGS: General: A single living intrauterine gestation is present. Presentation: Vertex. Placenta: Placental position is anterior , without previa. Amniotic fluid index: 14.5 cm, normal range is 5-24 cm. Single deepest vertical pocket is 4.9 cm. heart rate: 140 beats per minute. Maternal cervical canal: 3.5 cm long. Normal lower limit is 2.5 cm. biometrics: Biparietal diameter: 19 weeks 6 Head circumference: 19 weeks 6 days Abdominal circumference: 19 weeks 3 days Femur length: 19 weeks 5 days Clinically estimated gestational age: 19 weeks 2 days Composite gestational age from present scan: 19 weeks 5 days Estimated weight and percentile: 301 g; 63rd percentile Anatomic survey: Neuro: Ventricles are non-dilated at less than 10 mm. Cisterna magna is normal at 3-11 mm. Cerebellum is normal in size and morphology. Nuchal skin fold: Normal at less than 6 mm between 14-21 weeks gestational age. Face: Nose and lips, facial profile are normal. Spine: No evidence for spina bifida. Heart: 4-chambered heart is present, with normal ventricular outflow tracts. Diaphragm: Diaphragm is intact. Stomach: Left-sided stomach is present. Kidneys: No hydronephrosis. Normal is less than 5 mm in 2nd trimester, less than 7 mm in 3rd trimester. Cord: 3-vessel cord has orthotopic insertion. Bladder: Normal in size. Extremities: All 4 extremities identified. IMPRESSION: 1. Single living IUP redemonstrated and interval growth is within normal limits. 2. Normal anatomic survey. We strive to produce accurate, complete, and clear reports of imaging services. To assist us in improving patient care, this report was composed using standard report templates and voice recognition software. Therefore, it may contain abnormal punctuation, insertions and/or omissions. Occasional wrong-word or sound-alike substitutions may occur. Though we review the report and make efforts to correct it, we do recommend that the report be read carefully in proper context to recognize any text inaccuracies. Dictated by: Sourav FORRESTER Interpreted: Raz Trevino MD on 08/08/2024 at 16:15 Transcribed by: ANIYA on 08/08/2024 at 16:17 Approved by: Raz Trevino M.D. on 08/09/2024 at 8:01
== END ==
PROVIDERS: Family Provider Family Medicine; PCP Family Medicine; Referring Provider Family Medicine; Visit Provider Family Medicine
DX: Z34.82 Encounter for supervision of other normal pregnancy, second trimester (principal); Z3A.19 19 weeks gestation of pregnancy
CPT/HCPCS: 76811

== ENCOUNTER 2024-12-28 08:36 | Emergency (ER) | payer OTHER, SELFPAY ==
--- NOTE | 2024-12-28 08:41 | ED_ITS ---
HPI - General Adult General Chief complaint: Skin/Abscess/Foreign Body Stated complaint: POSSIBLE INFECTION OF INCISION Time Seen by Provider: 12/28/24 08:38 History of Present Illness HPI narrative: 24-year-old female recently delivered 2 weeks ago at [facility] with history of preeclampsia with no complications at presents today with 1-2 days of burning when she she urinates and vaginal yellowish discharge and also feeling itchy. She is not sexually active at this time. Patient denies fever, chills, body aches, abdominal pain, back pain. Other than what is stated 14 point review of system is negative. Related Data Previous Rx's ?Medication ?Instructions ?Recorded valacyclovir 1 gram tablet 1,000 mg PO BID PRN vulvar lesion 03/14/22 7 days #14 tabs vit no.95-ferrous 1 tab PO DAILY #90 tabs fumarate 28 mg-folic acid 800 mcg tablet ( Multivitamins) ondansetron 4 mg disintegrating 4 mg PO Q6H PRN nausea and 05/06/24 tablet vomiting #20 tabs acetaminophen 500 mg tablet 500 mg PO QID PRN pain #90 tabs 05/10/24 amoxicillin 875 mg-potassium 1 tab PO BID #10 tabs clavulanate 125 mg tablet azithromycin 500 mg tablet 1,000 mg (2 x 500 mg) PO ON CE #2 06/01/24 tabs aspirin 81 mg chewable tablet 81 mg PO DAILY #90 tabs 06/14/24 Allergies Allergy/AdvReac Type Severity Reaction Status Date / Time No Known Drug Allergies Allergy Verified 12/28/24 09:08 Review of Systems Review of Systems ROS Unobtainable: All systems reviewed & are unremarkable except as noted in HPI and below Patient History Medical History Iron deficiency anemia Vulvar lesion Dysuria Pain on voiding Healthy adult Surgical History Status post section Family History Grandmother No problems noted. Grandfather No problems noted. Grandmother No problems noted. Grandfather No problems noted. Brother No problems noted. Sister No problems noted. 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 feliciano/denominational: Buddhism special feliciano needs: No travel history: recent (Domestic only) seatbelt use: always helmet use: No water heater temp set < 120 deg: Yes working smoke detector in home: Yes fire extinguisher in home: Yes carbon monox detector in home: Yes firearms in home: No do you feel safe at home: Yes Smoking Status: Unknown if ever smoked second hand exposure: No alcohol intake: never substance use type: does not use and marijuana during the past year weight has: other (gained weight w/ OCPs, lost it again at gym and went down further) well-balanced diet: about half the time daily servings fruits/ve-4 caffeine: Yes (occasional 8-12 oz coffee in AM) eating out: 1-3 times/week Type(s) of exercise: aerobic and weight lifting alcohol intake frequency: other Exam Narrative Exam Narrative: GENERAL: [24] year old patient appears stated age. Well-developed patient, in mild distress. HEAD: Atraumatic. Normocephalic. EYES: Pupils equal round and reactive. Extraocular motions intact. No scleral icterus. No injection or drainage. : EXTREMITIES: No edema or joint tenderness. BACK: Nontender without deformity or crepitance. No flank tenderness. NEURO: AOx3. SKIN: No rash or erythema of visible areas Initial Vital Signs Initial Vital Signs: Vital Signs Temperature 97.1 F L 12/28/24 09:08 Pulse Rate 80 12/28/24 09:08 Respiratory Rate 14 12/28/24 09:08 Blood Pressure 121/74 12/28/24 09:08 Pulse Oximetry 97 12/28/24 09:08 Oxygen Delivery Method Room Air 12/28/24 09:08 Course Orders Ordered: Ondansetron HCl (Ondansetron 4 Mg/2 Ml Inj) 4 mg IV NOW PRN PRN Reason: Nausea And Vomiting Ondansetron HCl (Ondansetron 4 Mg Odt) 4 mg PO NOW PRN PRN Reason: Nausea And Vomiting Vital Signs Vital signs: Vital Signs - 8 hr 12/28/25 09:08 Temperature 97.1 F L Pulse Rate 80 Respiratory Rate 14 Blood Pressure 121/74 Pulse Oximetry 97 Oxygen Delivery Method Room Air Medical Decision Making Lab Data Labs: Point of Care Testing Test Results Negative Urine Dip Bedside Urine Glucose Negative Bedside Urine Bilirubin - Negative Bedside Urine Ketone - Negative Urine Specific [place] 1.025 Bedside Urine Occult Blood - Negative Bedside Urine pH 6.0 Bedside Urine Protein +/- 15 Bedside Urine Urobilinogen - Negative Bedside Urine Nitrite - Negative Bedside Urine Leukocytes ++ 125 Esterase Point of care testing: Point of Care Testing Test Results Negative Urine Dip Bedside Urine Glucose Negative Bedside Urine Bilirubin - Negative Bedside Urine Ketone - Negative Urine Specific [place] 1.025 Bedside Urine Occult Blood - Negative Bedside Urine pH 6.0 Bedside Urine Protein +/- 15 Bedside Urine Urobilinogen - Negative Bedside Urine Nitrite - Negative Bedside Urine Leukocytes ++ 125 Esterase MDM Narrative Medical decision making narrative: Vital signs, nurse triage note, medication list, previous ER visits, and all imaging study reviewed. UA reviewed which is normal. Differential diagnosis UTI, fungal infection, STD, BV. Urine culture sent. Conservative management at this time we will call patient back if anything changes with urine culture report. Discharge Plan Departure Patient Disposition: Home Clinical Impression: Itching in the vaginal area, Dysuria Instructions: DI for Dysuria -- Adult Activity Restrictions/Additional Instructions: Return with new or worsening symptoms. Keep hydrated. We will call you back if urine culture is positive and treat accordingly. Prescriptions: No Action amoxicillin-pot clavulanate 875-125 mg tablet 1 tab PO BID Qty: 10 0RF acetaminophen 500 mg tablet 500 mg PO QID PRN (Reason: pain) Qty: 90 2RF azithromycin 500 mg tablet 1,000 mg PO ONCE Qty: 2 0RF valacyclovir 1 gram tablet 1,000 mg PO BID PRN (Reason: vulvar lesion ) 7 Days Qty: 14 1RF ondansetron 4 mg tablet,disintegrating 4 mg PO Q6H PRN (Reason: nausea and vomiting) Qty: 20 0RF aspirin 81 mg tablet,chewable 81 mg PO DAILY Qty: 90 0RF PNV cmb#95-ferrous fumarate-FA [ Multivitamins] 28 mg iron- 800 mcg tablet 1 tab PO DAILY Qty: 90 3RF Referrals: Alma Clements MD [Primary Care Provider, Family Practice] Stand Alone Forms: Patient Portal/API
[2024-12-28 09:08] VITALS: BP 121/74; PULSE 80; RESP 14; TEMP 36.2; O2SAT 97; BMI 31.6
--- NOTE | 2024-12-28 09:41 | PC.NURSE ---
patient states recent vaginal delivery, 2 days ago started having vaginal itching, states yesterday had yellow discharge, no discharge noted on physical exam. standby with dr. perales for vaginal exam, patient tolerated well.
[2024-12-28 10:37] VITALS: BP 120/66; PULSE 71; RESP 18; TEMP 36.8; O2SAT 98
== END 2024-12-28 10:39 | disposition home or self-care (01) ==
PROVIDERS: Emergency Provider Family Medicine; Family Provider Family Medicine; PCP Family Medicine
DX: R30.0 Dysuria (principal); L29.89 Other pruritus
CPT/HCPCS: 81003; 81025; 87086; 99282

== ENCOUNTER → 2025-02-28 10:38 | Outpatient (CLI) | payer OTHER, SELFPAY | PROVIDERS: Family Provider Family Medicine; PCP Family Medicine; Visit Provider Physician Assistant | DX: N89.8 Other specified noninflammatory disorders of vagina (principal); R35.0 Frequency of micturition; Z11.3 Encounter for screening for infections with a predominantly sexual mode of transmission | CPT/HCPCS: 87086; 87210 ==

== ENCOUNTER → 2025-03-07 13:14 | Outpatient (CLI) | payer OTHER, SELFPAY ==
[2025-03-07 15:04] LABS: Urine N gonorrhoeae NOT DETECTED
[2025-03-07 15:27] LABS: Urine Chlamydia NOT DETECTED
[2025-03-08 22:36] LABS: HSV 1 DNA Negative (Negative); HSV 2 DNA Negative (Negative)
== END ==
PROVIDERS: Physician Assistant; Family Provider Family Medicine; PCP Family Medicine; Referring Provider Chiropractor; Visit Provider Chiropractor
DX: Z11.3 Encounter for screening for infections with a predominantly sexual mode of transmission (principal); N76.1 Subacute and chronic vaginitis; N94.89 Other specified conditions associated with female genital organs and menstrual cycle
CPT/HCPCS: 36415; 87210; 87491; 87529; 87591